=== PATIENT | male | born 1945 | race Caucasian/White ===

== ENCOUNTER 2017-04-18 03:46 | Inpatient (IN) | payer MEDICARE ==
[2017-04-18 04:51] LABS: #Eosinphils 0.2 thou/uL (0.0-0.7); #Lymphocytes 1.2 thou/uL (1.20-3.40); #Monocytes 0.8 thou/uL (0.11-0.59); #Neutrophils 6.6 thou/uL (1.40-6.50); %Basophils 0.1 % (0.0-1.0); %Eosinophils 1.9 % (0.0-10.0); %Lymphocytes 13.8 % (21.0-51.0); %Monocytes 9.2 % (0.0-10.0); Mean Platelet Volume 7.2 fL (7.4-10.4); Red Blood Cell (RBC) Count 3.16 mill/uL (4.70-6.10); White Blood Cell (WBC) Count 8.8 thou/uL (4.8-10.8)
[2017-04-18 04:57] LABS: PTT 37.8 SEC (22.9-36.1); Prothrombin Time 15.1 SEC (12.0-14.7)
[2017-04-18] MEDS ORDERED: Albuterol Sulfate 2.5 mg/3 ml Neb ONE (05:01)
[2017-04-18 05:07] LABS: ALT (SGPT) 23 U/L (8-55); AST (SGOT) 16 U/L (5-34); Alkaline Phosphatase 123 U/L (40-150); BUN (Urea Nitrogen) 44 mg/dL (8.4-25.7); Bilirubin, Total 0.4 mg/dL (0.2-1.2); Calc. Creatinine Clearance 0 mL/min (70-130); Calcium 9.7 mg/dL (7.8-10.44); Estimated GFR-MDRD 49; Globulin 3.6 g/dL (2.4-3.5); Protein, Total 6.8 g/dL (5.8-8.1)
[2017-04-18] MEDS ORDERED: Clindamycin/D5W 900 mg/50 ml Premix Bag ONE (05:09)
[2017-04-18 05:11] LABS: Troponin I 0.031 ng/mL (< 0.028)
[2017-04-18 05:16] LABS: Anion Gap 13 mmol/L (10-20); Carbon Dioxide 37 mmol/L (23-31); Chloride 93 mmol/L (98-107)
[2017-04-18] MEDS ORDERED: HYDROcodone/Acetaminophen 10/325 mg Tablet ONE (05:31)
[2017-04-18] MEDS ORDERED: Ondansetron HCl/PF 4 MG/2 ML Vial IVP PRN ×2 (06:56→07:24)
[2017-04-18] MEDS ORDERED: Ondansetron ODT 4 MG TAB SL PRN (06:56)
[2017-04-18] MEDS ORDERED: Dextrose 5% in Water 1,000 ML IV PRN (07:24)
[2017-04-18] MEDS ORDERED: Dextrose 50% Abboject 50 ML SYRINGE SLOW IVP PRN (07:24)
[2017-04-18] MEDS ORDERED: PROVENTIL INHALER 6.7 G (200 INHALATIONS) INH PRN (07:25)
[2017-04-18 07:28] LABS: Bilirubin Negative (Negative); Blood, Urine Negative (Negative); Glucose, Urine (Dipstick) Negative (Negative); Ketone, Urine Negative (Negative); Nitrite Negative (Negative); Protein, Urine (Dipstick) 100 mg/dL (Neg-Trace); Urobilinogen 0.2 mg/dL (0.2-1.0)
[2017-04-18 07:30] LABS: Bacteria/HPF None Seen HPF (None Seen); Hyaline Casts/LPF 0-3 HYALINE CAST LPF (0-3 Hyaline); Squamous Epithelial None Seen HPF (0-3); WBC/HPF 0-3 HPF (0-3)
--- NOTE | 2017-04-18 08:23 | HP ---
PRIMARY CARE PROVIDER: [facility]. Referred to [facility] by [facility] after transfer from [facility]. HISTORY OF PRESENT ILLNESS: Patient states his right leg has been painful, red and tender for 3 days . He has had some fever, chills, and sweats periodically during the past 3 days. He also had some i ncreasing shortness of breath; however, this has improved with an increasing dose of Lasix. PAST MEDICAL HISTORY: Pertinent for atrial fibrillation on chronic oral anticoagulation; systolic co ngestive heart failure with cardiomyopathy 40%-45% EF; chronic obstructive pulmonary disease related to remote tobacco abuse; diabetes mellitus type 2, insulin-dependent; hypertension; dyslipidemia; leg ally blind; peripheral neuropathy; coronary artery disease; depression. PAST SURGICAL HISTORY: Coronary artery bypass graft in 2005; multiple vascular stents in [facility] mities, [id number]. CURRENT MEDICATIONS: I am unable to confirm with him; however, he states that he is on the medicines he was discharged on last 02/02/2017 from this hospital, Ventolin HFA 2 puffs q.6 hours p.r.n., aspi rin 325 a day, Coreg 3.125 mg twice a day, Lasix 40 mg twice a day, Humulin 70/30 35 units subcu b.i. d., Dulera two puffs b.i.d., Seroquel 25 mg twice a day, Diamox 250 mg a day, metformin 1000 mg a day . ALLERGIES: To SULFA. His previous chart says he is DNR; however, he states to me he wants to be res uscitated if his heart stops. There are no informants with many. The medical chart refers to a son as surrogate decision maker. FAMILY HISTORY: Negative for inheritable diseases. SOCIAL HISTORY: Lives with son in [place], [place]. Remote tobacco. No alcohol or drug use. Wheel chair bound and nonambulatory. REVIEW OF SYSTEMS: General: Nonambulatory. No dizziness, no fainting. Otherwise, see present illn ess. Vision: Blind, states he cannot see lights. ENT: No complaints of pain or drainage from his ears. No history of nasal bleeding or oral pain. Cardiac: Currently, no orthopnea, no paroxysmal n octurnal dyspnea. No pressure or chest pain. Respiratory: Dry cough, no wheezing. Has some chroni c shortness of breath requiring home O2. Gastrointestinal: No nausea, vomiting, diarrhea or constip ation. No blood in his stools by history. Genitourinary: Some dysuria, has history of prostate pro blems. No reported blood in his urine. Extremities: He has chronically swollen legs. He has the a forementioned painful, tender, swollen right leg. Skin: See extremities related to the history of s welling and erythema on his right lower leg, no history of bruising. Heme/Lymph: No reported tender lymph nodes in axilla, inguinal or cervical area. Neurologic: Legally blind, burning paresthesias in his legs. PHYSICAL EXAMINAITON: GENERAL: The patient is obese, blind male, lying in bed with no distress, able to talk 2-3 minutes w ithout stopping. VITAL SIGNS: Blood pressure 148/68, O2 sat 95 on 4 liters of O2, respirations 18, pulse 65 and irreg ular. HEENT: Reveal nonreactive pupils. Sclerae white. Tympanic membranes clear. Nose is clear. Mouth is wet. Oral mucous membrane showed no lesions. NECK: No jugular venous distention, adenopathy or thyromegaly. CHEST: Decreased breath sounds with no audible wheezing or rales. No focal findings. HEART: Irregular rhythm with no appreciated murmurs or gallops. Heart sounds are distant. ABDOMEN: Protuberant, soft with no palpable organomegaly or mass. Bowel sounds positive. EXTREMITIES: Reveal 3+ edema with no cyanosis or clubbing. SKIN: Reveals a small area of redness on his left distal cook. He has a large area of erythema from his ankle to the proximal cook anteriorly on the right, which is warm and tender. LYMPHATIC SURVEY: Reveals no tender or swollen lymph nodes in axilla, inguinal or cervical area. NEUROLOGICAL: Cranial nerves: He is blind. Facies grossly symmetric. Moves all extremities. Deep tendon reflexes markedly diminished in his legs and markedly decreased sensation in his legs. IMAGING: EKG reveals a atrial fibrillation with controlled ventricular response and wide QRS, no acu te ST-T abnormality. X-RAY FINDINGS: No chest x-ray has presented. LABORATORY DATA: Comp metabolic profile reveals a blood sugar of 221, creatinine 1.42, BUN 44, CO2 3 7, chloride 93. Normal sodium and potassium. Troponin is borderline at 0.03. BNP is 284. Hemoglob in is 9.6, white count is 8.8, platelet count is 196,000. ADMITTING DIAGNOSES: 1. Acute cellulitis, right lower extremity. 2. Chronic atrial fibrillation. 3. Chronic oral anticoagulation. 4. Cardiomyopathy, 40%-45% ejection fraction. 5. Diabetes mellitus type 2, insulin-dependent with chronic kidney disease stage 3. 6. Chronic obstructive pulmonary disease with sleep apnea. 7. Coronary artery disease. 8. Hypertension. PLAN: Cultures have been drawn. IV antibiotics have been started. We will use Ancef 1 gram q.8 albert rs. His home medicines will be reinstituted. Accu-Cheks and sliding scale will be monitored.
[2017-04-18] MEDS ORDERED: Aspirin 325 MG TAB PO SCH (09:00)
[2017-04-18] MEDS ORDERED: Pregabalin 75 MG CAP PO SCH (09:00)
[2017-04-18] MEDS ORDERED: Furosemide 40 MG TAB PO SCH ×2 (09:00→16:00)
[2017-04-18] MEDS: metFORMIN 500 MG TAB PO SCH ×2 (09:26→23:03)
[2017-04-18] MEDS: Famotidine 20 MG TAB PO SCH ×2 (09:27→22:07)
[2017-04-18] MEDS: Carvedilol 3.125 MG TAB PO SCH ×2 (09:27→17:51)
[2017-04-18] MEDS: Polyethylene Glycol 3350 17 GM Packet PO SCH (09:28)
[2017-04-18] MEDS: Sodium Chloride 0.9% 10 ML ONE ×2 (12:08→14:48)
[2017-04-18] MEDS ORDERED: CEFAZOLIN 1 GM in Sodium Chloride 0.9% 100 ML IVPB SCH (14:00)
[2017-04-18] MEDS: HYDROcodone/Acetaminophen 10/325 mg Tablet PO PRN ×2 (14:46→22:09)
[2017-04-18] MEDS: CEFAZOLIN 1 GM, Syringe 2.5 ML in Sterile Water 7.5 ML SLOW IVP SCH ×2 (14:48→22:15)
[2017-04-18] MEDS ORDERED: Furosemide 40 MG/4 ML VIAL ONE (16:01)
[2017-04-18] MEDS ORDERED: Sodium Chloride 0.9% 10 ML ONE (16:01)
[2017-04-18] MEDS ORDERED: Furosemide 40 MG/4 ML VIAL SLOW IVP SCH (16:15)
[2017-04-18] MEDS ORDERED: Rivaroxaban 10 MG TAB PO SCH (17:00)
[2017-04-18] MEDS: HumaLOG 300 UNITS/3 ML VIAL SC SCH (17:45)
[2017-04-18] MEDS: Furosemide 40 MG TAB PO SCH (17:51)
[2017-04-18] MEDS: Ferrous Sulfate 325 MG TAB PO SCH (17:51)
[2017-04-18] MEDS: Mometasone/Formoterol 120 PUFF INHALER INH SCH (18:24)
[2017-04-18] MEDS ORDERED: Mometasone/Formoterol 120 PUFF INHALER INH SCH (18:30)
[2017-04-18] MEDS ORDERED: Simethicone Chewable 80 MG TAB PO PRN (19:00)
[2017-04-18] MEDS ORDERED: Non-Formulary Item 1 EACH (Ranitidine Hcl [Ranitidine Hcl] 150 MG) PO SCH (21:00)
[2017-04-18] MEDS: Gabapentin 300 MG CAP PO SCH (22:05)
[2017-04-18] MEDS: Atorvastatin Calcium 40 MG TAB PO SCH (22:06)
[2017-04-18] MEDS: busPIRone HCl 10 MG TAB PO SCH (22:06)
[2017-04-18] MEDS: Insulin Detemir 100 UNITS/ML 55 UNITS in Pre-Filled Syringe 1 EACH SC SCH (22:07)
[2017-04-19] MEDS: HYDROcodone/Acetaminophen 10/325 mg Tablet PO PRN ×3 (03:15→21:40)
[2017-04-19] MEDS: CEFAZOLIN 1 GM, Syringe 2.5 ML in Sterile Water 7.5 ML SLOW IVP SCH ×3 (05:22→20:55)
[2017-04-19 05:44] LABS: #Eosinphils 0.1 thou/uL (0.0-0.7); #Lymphocytes 1.3 thou/uL (1.20-3.40); #Monocytes 0.9 thou/uL (0.11-0.59); #Neutrophils 6.2 thou/uL (1.40-6.50); %Basophils 0.3 % (0.0-1.0); %Eosinophils 1.6 % (0.0-10.0); %Lymphocytes 15.3 % (21.0-51.0); %Monocytes 10.8 % (0.0-10.0); Hematocrit 30.7 % (42.0-52.0); Mean Platelet Volume 7.5 fL (7.4-10.4); Red Blood Cell (RBC) Count 3.12 mill/uL (4.70-6.10); White Blood Cell (WBC) Count 8.6 thou/uL (4.8-10.8)
[2017-04-19 06:00] LABS: Anion Gap 10 mmol/L (10-20); BUN (Urea Nitrogen) 48 mg/dL (8.4-25.7); Calc. Creatinine Clearance 106 mL/min (70-130); Carbon Dioxide 37 mmol/L (23-31); Chloride 94 mmol/L (98-107); Estimated GFR-MDRD 48
[2017-04-19] MEDS: Mometasone/Formoterol 120 PUFF INHALER INH SCH ×2 (07:15→18:47)
[2017-04-19] MEDS: Acetaminophen 325 MG TAB PO PRN (07:28)
[2017-04-19] MEDS: Aspirin 81 mg Enteric Coated Tablet PO SCH (08:02)
[2017-04-19] MEDS: busPIRone HCl 10 MG TAB PO SCH ×3 (08:02→20:45)
[2017-04-19] MEDS: Carvedilol 3.125 MG TAB PO SCH ×2 (08:03→17:46)
[2017-04-19] MEDS: Furosemide 80 MG TAB PO SCH ×2 (08:03→12:02)
[2017-04-19] MEDS: Ferrous Sulfate 325 MG TAB PO SCH ×3 (08:03→17:46)
[2017-04-19] MEDS: Famotidine 20 MG TAB PO SCH ×2 (08:03→20:45)
[2017-04-19] MEDS: Gabapentin 300 MG CAP PO SCH ×3 (08:09→20:44)
[2017-04-19] MEDS: Polyethylene Glycol 3350 17 GM Packet PO SCH (08:10)
[2017-04-19] MEDS: predniSONE 5 MG TAB PO SCH (08:14)
[2017-04-19] MEDS ORDERED: Docusate 100 MG CAP PO PRN (09:00)
[2017-04-19] MEDS: Insulin Detemir 100 UNITS/ML 55 UNITS in Pre-Filled Syringe 1 EACH SC SCH ×2 (09:13→20:50)
[2017-04-19] MEDS: HumaLOG 300 UNITS/3 ML VIAL SC SCH ×3 (09:14→18:33)
--- NOTE | 2017-04-19 11:19 | PQF ---
CLINICAL DOCUMENTATION IMPROVEMENT CLARIFICATION FORM: ICD-10 Updated PLEASE DO AN ADDENDUM TO THE PROGRESS NOTE WITH ANY DOCUMENTATION UPDATES OR ADDITIONS AND CARRY THROUGH TO DC SUMMARY. THANK YOU. DATE: 04/19 ATTN: DR. ANGÉLICA REINA Please exercise your independent, professional judgment in responding to the clarification form. Clinical indicators are provided on the bottom of this form for your review Please check appropriate box(s): [ ] Chronic Respiratory Failure with Hypoxia [ x ] Chronic Respiratory Failure with Hypercapnia [ ] Other diagnosis [ ] Unable to determine For continuity of documentation, please document condition throughout progress notes and discharge summary. Thank You. CLINICAL INDICATORS - SIGNS / SYMPTOMS / LABS ER PHYSICIAN DOCUMENTATION 04/18: PT STATES HE HAS BEEN SOB FOR PAST 3 WEEKS. STATES HE IS NORMALLY ON 3L 02 AT HOME BUT NOW ON 4.5L ATTENDING PHYSICIAN H&P DOCUMENTATION 04/18: REVIEW OF SYSTEMS: HAS SOME CHRONIC SHORTNESS OF BREATH REQUIRING HOME 02 RISK FACTORS: CHRONIC HOME 02 USE MORBID OBESITY COPD CHF TREATMENTS: SUPPLEMENTAL OXYGEN (4L 04/18 - PRESENT) RESPIRATORY TREATMENTS (ALBUTEROL NEB 04/18 - PRESENT; DULERA INHALER 04/18 - PRESENT) THANK YOU! Desiree (This form is maintained as a part of the permanent medical record) 2014 [employer]. All Rights Reserved Desiree Rangel RN, BSN [email or web address] Office: [phone] [facility]
--- NOTE | 2017-04-19 12:09 | PDOC.PN ---
- Subjective Encounter Start Date: 04/19/17 Encounter Start Time: 12:05 Subjective: various somatic complaints, no fever, chills - Objective Resuscitation Status: Resuscitation Status FULL:Full Resuscitation MAR Reviewed: Yes Vital Signs & Weight: Vital Signs (12 hours) Temp Pulse Resp BP Pulse Ox 04/19/17 07:30 99.3 F 78 16 114/68 88 L 04/19/17 07:16 80 16 04/19/17 03:50 90 L 04/19/17 03:24 98.5 F 80 20 161/81 H 93 L 04/19/17 00:17 70 18 91 L Weight Weight 341 lb I&O: 04/18/17 04/19/17 04/20/17 06:59 06:59 06:59 Intake Total 1100 Output Total 1625 Balance -525 Result Diagrams: 04/19/17 05:22 04/19/17 05:22 Additional Labs: Accuchecks 04/19/17 04/18/17 04/18/17 05:34 20:19 16:50 POC Glucose 203 H 389 H 420 H Phys Exam - Physical Examination Constitutional: NAD Neck: no JVD diffuse decreased BS Cardiovascular: irregular Gastrointestinal: soft, no distention, positive bowel sounds Musculoskeletal: edema present erythema persists RL leg Dx/Plan (1) Cellulitis and abscess of right lower extremity Code(s): L03.115 - CELLULITIS OF RIGHT LOWER LIMB; L02.415 - CUTANEOUS ABSCESS OF RIGHT LOWER LIMB Status: Acute (2) COPD exacerbation Code(s): J44.1 - CHRONIC OBSTRUCTIVE PULMONARY DISEASE W (ACUTE) EXACERBATION Status: Acute (3) CAD (coronary artery disease) Code(s): I25.10 - ATHSCL HEART DISEASE OF [place] CORONARY ARTERY W/O ANG PCTRS Status: Chronic Qualifiers: Coronary Disease-Associated Artery/Lesion type: [place] artery [place] vs. transplanted heart: [place] heart Associated angina: without angina Qualified Code(s): I25.10 - Atherosclerotic heart disease of [place] coronary artery without angina pectoris (4) Cardiomyopathy Code(s): I42.9 - CARDIOMYOPATHY, UNSPECIFIED Status: Chronic Qualifiers: Cardiomyopathy type: unspecified Qualified Code(s): I42.9 - Cardiomyopathy , unspecified (5) DM2 (diabetes mellitus, type 2) Status: Chronic Qualifiers: Diabetes mellitus complication status: with kidney complications Diabetes mellitus complication detail: with chronic kidney disease Diabetes mellitus residential insulin use: with dedicated intermodal truck driver use Chronic kidney disease stage: stage 3 (moderate) Qualified Code(s): E11.22 - Type 2 diabetes mellitus with diabetic chronic kidney disease; N18.3 - Chronic kidney disease, stage 3 ( moderate); N18.3 - Chronic kidney disease, stage 3 (moderate); Z79.4 - FDC (current) use of insulin; Z79.4 - FDC (current) use of insulin; Z79.4 - FDC (current) use of insulin; Z79.4 - termite control servicer (current) use of insulin (6) Dyslipidemia Code(s): E78.5 - HYPERLIPIDEMIA, UNSPECIFIED Status: Chronic (7) HTN (hypertension) Code(s): I10 - ESSENTIAL (PRIMARY) HYPERTENSION Status: Chronic Qualifiers: Hypertension type: essential hypertension Qualified Code(s): I10 - Essential (primary) hypertension (8) Morbid obesity with BMI of 50.0-59.9, adult Code(s): E66.01 - MORBID (SEVERE) OBESITY DUE TO EXCESS CALORIES; Z68.43 - BODY MASS INDEX (BMI) 50-59.9 , ADULT Status: Chronic (9) Obesity hypoventilation syndrome Code(s): E66.2 - MORBID (SEVERE) OBESITY WITH ALVEOLAR HYPOVENTILATION Status : Chronic - Plan cont iv ancef. CXR, abg -: cont accu/ss/insulin -: cont lasix, antihypertensives -: cont nebs * .
[2017-04-19 13:00] VITALS: BMI 50.3
--- NOTE | 2017-04-19 16:09 | RAD ---
PORTABLE CHEST: History: Shortness of breath. Comparison: 05-29-16 FINDINGS: Cardiomegaly with post op sternotomy change. Mild vascular congestion again noted. Hazy parenchymal o pacities in the mid and lower lungs may represent edema. Tiny effusions cannot be excluded. Overall t he findings do not appear to be significantly changed from 01-27-17. IMPRESSION: Cardiomegaly and mild congestive change as described. POS: [facility]
[2017-04-19 17:29] LABS: Oxyhemoglobin 72.7 % (94.0-97.0); Sodium 139 mmol/L (135-148)
[2017-04-19 17:37] LABS: Mode 4L NC; Modified Allen's Test POSITIVE; Vent NO
[2017-04-19] MEDS: Furosemide 40 MG TAB PO SCH (17:46)
[2017-04-19] MEDS: EDOXABAN TOSYLATE 60 MG PO SCH (18:18)
[2017-04-19] MEDS: Atorvastatin Calcium 40 MG TAB PO SCH (20:44)
[2017-04-19] MEDS: Alfuzosin Hcl [Alfuzosin Hcl Er] 10 MG PO SCH ×2 (20:44→20:53)
[2017-04-20] MEDS: HYDROcodone/Acetaminophen 10/325 mg Tablet PO PRN ×2 (03:00→10:37)
[2017-04-20] MEDS: CEFAZOLIN 1 GM, Syringe 2.5 ML in Sterile Water 7.5 ML SLOW IVP SCH ×3 (05:32→21:07)
[2017-04-20] MEDS: Mometasone/Formoterol 120 PUFF INHALER INH SCH ×2 (07:29→19:09)
[2017-04-20] MEDS: Polyethylene Glycol 3350 17 GM Packet PO SCH (08:46)
[2017-04-20] MEDS: HumaLOG 300 UNITS/3 ML VIAL SC SCH ×3 (08:46→17:46)
[2017-04-20] MEDS: busPIRone HCl 10 MG TAB PO SCH ×3 (08:54→21:00)
[2017-04-20] MEDS: Ferrous Sulfate 325 MG TAB PO SCH ×3 (08:54→16:19)
[2017-04-20] MEDS: Furosemide 80 MG TAB PO SCH ×2 (08:54→12:13)
[2017-04-20] MEDS: Famotidine 20 MG TAB PO SCH ×2 (08:54→21:01)
[2017-04-20] MEDS: Gabapentin 300 MG CAP PO SCH ×3 (08:54→21:01)
[2017-04-20] MEDS: predniSONE 5 MG TAB PO SCH (08:55)
[2017-04-20] MEDS: EDOXABAN TOSYLATE 60 MG PO SCH (08:55)
[2017-04-20] MEDS: Carvedilol 3.125 MG TAB PO SCH ×2 (08:55→16:19)
[2017-04-20] MEDS: Aspirin 81 mg Enteric Coated Tablet PO SCH (08:55)
[2017-04-20] MEDS: Insulin Detemir 100 UNITS/ML 55 UNITS in Pre-Filled Syringe 1 EACH SC SCH ×2 (09:42→21:04)
--- NOTE | 2017-04-20 10:01 | PDOC.PN ---
- Subjective Encounter Start Date: 04/20/17 Encounter Start Time: 09:59 Subjective: back, legs still hurt - Objective Resuscitation Status: Resuscitation Status FULL:Full Resuscitation MAR Reviewed: Yes Vital Signs & Weight: Vital Signs (12 hours) Temp Pulse Resp BP BP Pulse Ox 04/20/17 07:29 75 16 92 L 04/20/17 07:26 75 16 92 L 04/20/17 07:03 98.2 F 67 20 90 L 04/20/17 07:01 98.2 F 67 20 112/54 L 90 L 04/20/17 03:04 99.2 F 71 22 H 112/55 L 90 L 04/20/17 01:46 88 L 04/20/17 00:18 66 18 86 L Weight Admit Weight 347 lb Weight 340 lb 1 oz I&O: 04/19/17 04/20/17 04/21/17 06:59 06:59 06:59 Intake Total 1100 1400 Output Total 1625 1800 Balance -525 -400 Result Diagrams: 04/19/17 05:22 04/19/17 05:22 Additional Labs: Accuchecks 04/20/17 04/19/17 04/19/17 05:37 20:24 18:30 POC Glucose 257 H 184 H 121 H 04/19/17 04/19/17 17:00 11:57 POC Glucose 75 231 H Phys Exam - Physical Examination Constitutional: NAD Neck: no JVD Respiratory: clear to auscultation bilateral Cardiovascular: RRR Gastrointestinal: soft, positive bowel sounds Musculoskeletal: edema present bilat erythema lower legs Dx/Plan (1) Cellulitis and abscess of right lower extremity Code(s): L03.115 - CELLULITIS OF RIGHT LOWER LIMB; L02.415 - CUTANEOUS ABSCESS OF RIGHT LOWER LIMB Status: Acute Comment: i know cosider changes in legs to be chronic not acute (2) COPD exacerbation Code(s): J44.1 - CHRONIC OBSTRUCTIVE PULMONARY DISEASE W (ACUTE) EXACERBATION Status: Acute (3) CAD (coronary artery disease) Code(s): I25.10 - ATHSCL HEART DISEASE OF [place] CORONARY ARTERY W/O ANG PCTRS Status: Chronic Qualifiers: Coronary Disease-Associated Artery/Lesion type: [place] artery [place] vs. transplanted heart: [place] heart Associated angina: without angina Qualified Code(s): I25.10 - Atherosclerotic heart disease of [place] coronary artery without angina pectoris (4) Cardiomyopathy Code(s): I42.9 - CARDIOMYOPATHY, UNSPECIFIED Status: Chronic Qualifiers: Cardiomyopathy type: unspecified Qualified Code(s): I42.9 - Cardiomyopathy , unspecified (5) DM2 (diabetes mellitus, type 2) Status: Chronic Qualifiers: Diabetes mellitus complication status: with kidney complications Diabetes mellitus complication detail: with chronic kidney disease Diabetes mellitus long term care social worker insulin use: with shelter use Chronic kidney disease stage: stage 3 (moderate) Qualified Code(s): E11.22 - Type 2 diabetes mellitus with diabetic chronic kidney disease; N18.3 - Chronic kidney disease, stage 3 ( moderate); N18.3 - Chronic kidney disease, stage 3 (moderate); Z79.4 - long term care pharmacist (current) use of insulin; Z79.4 - alf (current) use of insulin; Z79.4 - alf (current) use of insulin; Z79.4 - alf (current) use of insulin (6) Dyslipidemia Code(s): E78.5 - HYPERLIPIDEMIA, UNSPECIFIED Status: Chronic (7) HTN (hypertension) Code(s): I10 - ESSENTIAL (PRIMARY) HYPERTENSION Status: Chronic Qualifiers: Hypertension type: essential hypertension Qualified Code(s): I10 - Essential (primary) hypertension (8) Morbid obesity with BMI of 50.0-59.9, adult Code(s): E66.01 - MORBID (SEVERE) OBESITY DUE TO EXCESS CALORIES; Z68.43 - BODY MASS INDEX (BMI) 50-59.9 , ADULT Status: Chronic (9) Obesity hypoventilation syndrome Code(s): E66.2 - MORBID (SEVERE) OBESITY WITH ALVEOLAR HYPOVENTILATION Status : Chronic - Plan switch to po antibx -: 1400-lethargic, O2 sat low 80s -: ABG- compensated resp acidosis. nebs q3h prn -: change lasix to iv * .
[2017-04-20] MEDS ORDERED: Furosemide 100 MG/10 ML VIAL SLOW IVP SCH (14:15)
[2017-04-20 14:23] LABS: Oxyhemoglobin 89.2 % (94.0-97.0); Sodium 140 mmol/L (135-148)
[2017-04-20 14:26] LABS: Modified Allen's Test POSITIVE; Vent NO
[2017-04-20 14:27] LABS: Mode NC(4L)
[2017-04-20] MEDS: Acetaminophen 325 MG TAB PO PRN (18:15)
[2017-04-20] MEDS: Atorvastatin Calcium 40 MG TAB PO SCH (21:00)
[2017-04-20] MEDS: Alfuzosin Hcl [Alfuzosin Hcl Er] 10 MG PO SCH (21:06)
[2017-04-21] MEDS: HYDROcodone/Acetaminophen 10/325 mg Tablet PO PRN ×4 (01:49→14:20)
[2017-04-21] MEDS: CEFAZOLIN 1 GM, Syringe 2.5 ML in Sterile Water 7.5 ML SLOW IVP SCH ×2 (05:10→14:20)
[2017-04-21] MEDS: Mometasone/Formoterol 120 PUFF INHALER INH SCH ×2 (07:33→18:56)
[2017-04-21] MEDS: busPIRone HCl 10 MG TAB PO SCH ×2 (09:10→16:51)
[2017-04-21] MEDS: predniSONE 5 MG TAB PO SCH (09:11)
[2017-04-21] MEDS: Carvedilol 3.125 MG TAB PO SCH ×2 (09:11→16:51)
[2017-04-21] MEDS: Famotidine 20 MG TAB PO SCH (09:12)
[2017-04-21] MEDS: Aspirin 81 mg Enteric Coated Tablet PO SCH (09:12)
[2017-04-21] MEDS: Ferrous Sulfate 325 MG TAB PO SCH ×3 (09:12→16:50)
[2017-04-21] MEDS: Gabapentin 300 MG CAP PO SCH ×2 (09:12→16:50)
[2017-04-21] MEDS: Polyethylene Glycol 3350 17 GM Packet PO SCH (09:13)
[2017-04-21] MEDS: Insulin Detemir 100 UNITS/ML 55 UNITS in Pre-Filled Syringe 1 EACH SC SCH (09:15)
[2017-04-21] MEDS: HumaLOG 300 UNITS/3 ML VIAL SC SCH ×3 (09:16→18:11)
[2017-04-21] MEDS: EDOXABAN TOSYLATE 60 MG PO SCH (09:39)
--- NOTE | 2017-04-21 11:25 | DIS ---
DATE OF ADMISSION: 04/18/2017 DATE OF DISCHARGE: 04/21/2017 DISCHARGE DISPOSITION: Home. PRIMARY CARE PROVIDER: [facility]. FINAL DIAGNOSES: 1. Cellulitis, right lower leg. 2. Chronic atrial fibrillation. 3. Cardiomyopathy. 4. Diabetes mellitus type 2 with chronic kidney disease. 5. Diabetes mellitus type 2. 6. Chronic obstructive pulmonary disease. 7. Chronic respiratory failure on home oxygen. 8. Compensated respiratory acidosis. 9. Dyslipidemia. 10. Hypertension. 11. Obesity. 12. Obesity hypoventilation syndrome. DISCHARGE MEDICATIONS: Hydrocodone 10/325 one every 4 hours as needed for pain, Coreg 3.125 mg a day , BuSpar 5 mg t.i.d., Lipitor 80 mg a day, alfuzosin 10 mg a day, Stiolto Respimat inhalation spray d aily, insulin detemir 55 units subcutaneously twice a day, and insulin NovoLog 60 units subcu t.i.d. with meals, gabapentin 300 mg 3 times a day, Imdur 30 mg a day, prednisone 5 mg a day, Symbicort 2 pu ffs b.i.d., aspirin 81 mg a day, ranitidine 150 mg twice a day, and Lasix 80 mg p.o. b.i.d. ALLERGIES: SULFA ANTIBIOTICS. CODE STATUS: FULL. PENDING AT THE TIME OF DISCHARGE: Nothing. CONSULTATIONS: None. PROCEDURES: None. HOSPITAL COURSE: [facility] for cellulitis to the left lower extremity. The patient's cultures were drawn, which have been negative. Initial laboratory: White count 8.8, hemoglobin 9.6, and platelet count 196,000. Blood gas reveals compensated respiratory acidosis with hypercapnia. Sodium 139, potassium 4.4, BUN 44, cr eatinine 0.42. Accu-Cheks, sliding scale were monitored. Home medicines were continued. The patien t is improved during his hospital stay. He is afebrile. Vital signs are stable, O2 sats 94% on 4 li ters of O2, which is usual home medicine. Chest x-ray done in the emergency room, pulmonary vascular congestion. His Lasix dose was increased during his hospital stay from 40 mg a day p.r.n. and 80 mg twice a day. Prescriptions have been written for that and for the Omnicef. [facility] He has home O2, home nebulizer therapies. He has home health car e that comes 5 days a week for 2 hours. Prognosis is fair, considering his multiplicity of his medic al problems.
[2017-04-21 16:05] VITALS: BP 120/58; TEMP 97.7
--- NOTE | 2017-04-22 15:27 | PQF ---
PANDA JORGE, [facility] [id number] CLINICAL DOCUMENTATION CLARIFICATION FORM: POST DISCHARGE Please clarify if documented "Systolic congestive heart failure" can be further specified. H&P; PMH; "Systolic congestive heart failure with cardiomyopathy 40%-45% EF." DC SUMMARY; "Chest x-ray done in emergency room, pulmonary vascular congestion. His Lasix dose was increased during his hospital stay from 40 mg a day p.r.n. and 80 mg twice a day. PN 04/20; "edema present "; "change lasix to IV" 04/20- Slow IV 80mg ordered/ administered Please exercise your independent, professional judgment in responding to the clarification form. Clinical indicators are provided on the bottom of this form for your review. Thank you. Please check appropriate box(s): HEART FAILURE: A. TYPE: [ x ] Systolic / HFrEF [ ] Diastolic / HFpEF [ ] Combined Systolic / Diastolic B. ACUITY [ ] Acute [ x ] Acute on Chronic [ ] Chronic [ ] Other diagnosis [ ] Unable to determine In addition, please specify: Present on Admission (POA): [ ] Yes [ ] No [ ] Unable to determine CLINICAL INDICATORS - SIGNS / SYMPTOMS / LABS Ejection Fraction = % Dyspnea, Hypoxia Peripheral edema Elevated BNP JVD Orthopnea / SOB / dyspnea Pleural effusion / pulmonary edema CXR results Arrhythmia--tachycardia RISKS: History of CAD/ischemic heart disease CKD Hypertension TREATMENTS: Administration of BRITTANIE / ARB / BB Cardiac monitoring / telemetry IV diuretics Oxygen AICD (This form is maintained as a part of the permanent medical record) 2014 [employer]. All Rights Reserved JANET [email or web address] [phone] [facility]
== END 2017-04-21 19:52 | disposition home health service (06) | DRG 602 ==
LOC: ERS 03:46 → 2NO 05:00
PROVIDERS: ADMIT Internal Medicine Infectious Disease; ATTEND Internal Medicine Infectious Disease
PROC: 5A09357 Assistance with Respiratory Ventilation, Less than 24 Consecutive Hours, Continuous Positive Airway Pressure (ICD-10-PCS; principal; 2017-04-20)
DX: L03.115 Cellulitis of right lower limb (principal); I50.23 Acute on chronic systolic (congestive) heart failure; E87.2 Acidosis; J96.12 Chronic respiratory failure with hypercapnia; I42.9 Cardiomyopathy, unspecified; E11.22 Type 2 diabetes mellitus with diabetic chronic kidney disease; Z68.43 Body mass index [BMI] 50.0-59.9, adult; I13.0 Hypertensive heart and chronic kidney disease with heart failure and stage 1 through stage 4 chronic kidney disease, or unspecified chronic kidney disease; E66.2 Morbid (severe) obesity with alveolar hypoventilation; J44.1 Chronic obstructive pulmonary disease with (acute) exacerbation; L02.415 Cutaneous abscess of right lower limb; E11.42 Type 2 diabetes mellitus with diabetic polyneuropathy; N18.3 Chronic kidney disease, stage 3 (moderate); I48.2 Chronic atrial fibrillation; Z99.81 Dependence on supplemental oxygen; E78.5 Hyperlipidemia, unspecified; Z87.891 Personal history of nicotine dependence; Z79.4 Long term (current) use of insulin; I25.10 Atherosclerotic heart disease of native coronary artery without angina pectoris; F32.9 Major depressive disorder, single episode, unspecified; H54.8 Legal blindness, as defined in USA; Z79.82 Long term (current) use of aspirin
CPT/HCPCS: 36415; 36416; 71010; 80048; 80053; 81001; 82553; 82805; 83880; 84484; 85025; 85610; 85730; 87086; 93005; 94640; 94664; 94760; 96365; A4216; J0690; J1815; J1940; J2405; J3490; J7050; J7611; J7620

== ENCOUNTER 2017-05-13 11:41 | Inpatient (IN) | payer MEDICARE, OTHER ==
[2017-05-13 12:37] LABS: #Lymphocytes 0.9 thou/uL (1.20-3.40); #Monocytes 0.8 thou/uL (0.11-0.59); #Neutrophils 9.8 thou/uL (1.40-6.50); %Basophils 0.1 % (0.0-1.0); %Eosinophils 0.3 % (0.0-10.0); %Lymphocytes 7.5 % (21.0-51.0); %Monocytes 7.2 % (0.0-10.0); %Neutrophils 84.9 % (42.0-75.0); Hemoglobin 10.5 g/dL (14.0-18.0); Mean Corpuscular HGB CONC 30.8 g/dL (32.0-36.0); Mean Corpuscular Hemoglobin 30.4 pg (27.0-31.0); Mean Corpuscular Volume 98.5 fl (80.0-94.0); Mean Platelet Volume 7.6 fL (7.4-10.4); Platelet Count 169 thou/uL (130-400); RBC Distribution Width 16.4 % (11.5-14.5); Red Blood Cell (RBC) Count 3.45 mill/uL (4.70-6.10); White Blood Cell (WBC) Count 11.6 thou/uL (4.8-10.8)
--- NOTE | 2017-05-13 13:12 | RAD ---
AP VIEW CHEST: 05/13/2017 HISTORY: Dyspnea. COMPARISON: 04/19/2017 FINDINGS: AP view chest demonstrates sternotomy wires seen. Cardiomegaly is noted. Small bilateral pleural ef fusions are seen. Pulmonary vascular congestion is noted. No evidence of pneumothorax is seen. IMPRESSION: 1. Cardiomegaly and pulmonary vascular congestion. 2. Small bilateral pleural effusions. POS: [facility]
[2017-05-13 13:13] LABS: ALT (SGPT) 35 U/L (8-55); AST (SGOT) 104 U/L (5-34); Albumin 3.7 g/dL (3.4-4.8); Alkaline Phosphatase 99 U/L (40-150); Anion Gap 14 mmol/L (10-20); BUN (Urea Nitrogen) 47 mg/dL (8.4-25.7); Bilirubin, Total 0.8 mg/dL (0.2-1.2); Calc. Creatinine Clearance 0 mL/min (70-130); Calcium 8.9 mg/dL (7.8-10.44); Carbon Dioxide 35 mmol/L (23-31); Chloride 92 mmol/L (98-107); Estimated GFR-MDRD 35; Globulin 3.7 g/dL (2.4-3.5); Glucose 331 mg/dL (80-115); Potassium 4.9 mmol/L (3.5-5.1); Protein, Total 7.4 g/dL (5.8-8.1); Sodium 136 mmol/L (136-145)
[2017-05-13 13:20] LABS: CKMB 35.6 ng/mL (0-6.6)
[2017-05-13 13:26] LABS: CK (CPK) 6359 U/L (30-200)
[2017-05-13 13:27] LABS: Bilirubin Negative (Negative); Blood, Urine Large (Negative); Clarity CLOUDY (Clear); Glucose, Urine (Dipstick) 100 mg/dL (Negative); Leukocyte Negative (Negative); Nitrite Negative (Negative); Protein, Urine (Dipstick) 100 mg/dL (Neg-Trace); Specific Gravity, Urine 1.022 (1.002-1.036)
[2017-05-13 13:30] LABS: Pathc Cast-AUWi Flag 1.35 (0-2.49); Squamous Epithelial 0-3 HPF (0-3); WBC/HPF 0-3 HPF (0-3)
[2017-05-13 13:42] LABS: Bacteria/HPF 2+ HPF (None Seen); Hyaline Casts/LPF 0-3 HYALINE CAST LPF (0-3 Hyaline); Yeast-All Forms None Seen HPF (None Seen)
[2017-05-13 14:38] LABS: Magnesium 2.7 mg/dL (1.6-2.6); Phosphorus 5.9 mg/dL (2.3-4.7)
[2017-05-13 14:58] LABS: Thyroid Stimulating Hormone 1.5211 uIU/mL (0.35-4.94)
--- NOTE | 2017-05-13 16:07 | HP ---
PRIMARY CARE PHYSICIAN: [facility]. REASON FOR ADMISSION: Non-ST elevation TX, acute on chronic diastolic congestive heart failure, COPD exacerbation, acute on chronic respiratory failure with hypoxia. HISTORY OF PRESENT ILLNESS: Mr. Centeno is a 72-year-old male who has multiple medical problems inclu ding chronic diastolic heart failure, COPD, chronic respiratory acidosis, obesity hypoventilation syn drome on CPAP machine and chronic respiratory failure requiring home oxygen as well as significant ph ysical deconditioning. He was brought to emergency room for increasing shortness of breath. Patient reports that he is chronically short of breath, but last night he was having chest pain, left-sided, radiating to left upper arm as well as behind his shoulder blade, associated with severe shortness o f breath. Since then he was not able to breathe at all. His oxygen saturation dropped at home. He was feeling very weak, sweaty and that is why he was evaluated at [facility] and subsequently he was transferred to our hospital for higher level of care. At [facility], he was found with rhabdomyolysis and renal failure. His troponin was signific antly abnormal. He had significantly increased bilateral lower extremity edema. He was also hypoxic . He was only maintaining oxygen saturation 91% with a facemask. This patient denies any constipation, diarrhea, melena, hematochezia. He denies any UTI symptoms. H e denies any fever or chills. He denies any pain anywhere in his body other than chest discomfort wh ich he had last night. PAST MEDICAL HISTORY: Chronic diastolic heart failure, chronic respiratory acidosis with metabolic c ompensation, COPD, diabetes type 2 insulin requiring, hypertension, dyslipidemia, legal blindness, pe ripheral neuropathy, severe physical deconditioning, coronary artery disease, obesity hypoventilation syndrome, paroxysmal atrial fibrillation, dyslipidemia, and gastroesophageal reflux disease. PAST PSYCHIATRIC HISTORY: Anxiety and depression. PAST SURGICAL HISTORY: CABG x3 in 2006. The patient had multiple vascular stent in lower extremity between 2005 and 2016. ALLERGIES: SULFA DRUGS. FAMILY HISTORY: No strong family history of premature coronary artery disease, stroke or cancer. SOCIAL HISTORY: The patient lives in [place] along with his son who is surrogate decision maker. Patient has a remote history of smoking, but he quit smoking several years ago. No history of alcoho l or other illicit drug abuse. He is wheelchair bound and is nonambulatory. REVIEW OF SYSTEMS: The following complete review of systems was negative, unless otherwise mentioned in the HPI or below: Constitutional: Weight loss or gain, ability to conduct usual activities. Skin: Rash, itching. Eyes: Double vision, pain. ENT/Mouth: Nose bleeding, neck stiffness, pain, tenderness. Cardiovascular: Palpitations, dyspnea on exertion, orthopnea. Respiratory: Shortness of breath, wheezing, cough, hemoptysis, fever or night sweats. Gastrointestinal: Poor appetite, abdominal pain, heartburn, nausea, vomiting, constipation, or diarr hea. Genitourinary: Urgency, frequency, dysuria, nocturia. Musculoskeletal: Pain, swelling. Neurologic/Psychiatric: Anxiety, depression. Allergy/Immunologic: Skin rash, bleeding tendency. Please see my HPI for pertinent positives and negatives. All other review of systems reviewed and ne gative except as mentioned in the HPI. CURRENT HOME MEDICATIONS: Aspirin 81 mg p.o. daily, Lipitor 80 mg p.o. at bedtime, Symbicort 2 puffs inhalation b.i.d., buspirone 5 mg p.o. t.i.d., calcium with vitamin D 1 tablet p.o. q.4 hourly p.r.n ., Coreg 3.125 mg p.o. b.i.d., ferrous sulfate 325 mg p.o. daily, Flonase nasal spray daily, Lasix 40 mg p.o. daily, gabapentin 300 mg p.o. three times daily, Charlo 10 one tablet q.4 hourly p.r.n., Leve cindy insulin 55 units b.i.d., Humalog insulin as per sliding scale, methocarbamol 1000 mg p.o. q.i.d. p.r.n., ranitidine 150 mg p.o. b.i.d., and Spiriva inhalation daily. EMERGENCY ROOM COURSE: Patient is given aspirin and IV fluid. PHYSICAL EXAMINATION: VITAL SIGNS: On arrival, blood pressure 123/50, pulse 90, respiratory rate 24, temperature 98.0, sat uration 98% on facemask, and weight 154 kilograms. GENERAL: Patient is currently alert, awake, no obvious acute distress. HEAD: Normocephalic, atraumatic. EYES: Pupils round, reactive to light. Extraocular muscle intact. ENT: Moist mucous membranes. No oral lesions. No pharyngeal erythema, no exudates. NECK: Short neck. Difficult to assess JVD. LUNGS: Because of morbid obesity, very difficult to perform pulmonary examination. Unable to elicit any wheezing, rales, or rhonchi externally. Air entry reduced both sides. CARDIAC: S1, S2. Rate appears irregular. Distant heart sounds heard because of morbid obesity. ABDOMEN: Morbid obesity present. Abdominal wall edema noted. Because of morbid obesity, examinatio n is limited. EXTREMITIES: Bilateral +4 pitting edema. Mild erythema noted. Upper extremity passive movement of all joints are normal. NEUROLOGIC: Grossly nonfocal examination. He is able to move all four limbs. His speech is normal. SKIN: No skin rash. PSYCHIATRIC: Normal affect. IMAGING AND SIGNIFICANT LABORATORY DATA: 1. EKG based on my review, first degree AV block, nonspecific ST-T changes in lateral and anterior l mignon. 2. Chest x-ray based on my review, bilateral pleural effusion and cardiomegaly. 3. CBC: WBC 11.6, hemoglobin 10.5, platelets 169. 4. BMP: Sodium 136, potassium 4.9, chloride 92, carbon dioxide 35, anion gap 14, BUN 47, creatinine 1.92, glucose 331. Serum osmolality 311, calcium 8.9, phosphorus 5.9, magnesium 2.7. 5. LFT: AST 104, ALT 35, alkaline phosphatase 99, albumin 3.7, TSH 1.52, CK 6359, CK-MB 35.6, tropo scott I 0.700. 6. Urinalysis, bacteria plus, blood large. ASSESSMENT AND PLAN/IMPRESSION: 1. Acute respiratory distress, likely due to combined etiology from chronic obstructive pulmonary di sease exacerbation as well as diastolic heart failure exacerbation. Patient will require IMCU admiss ion for close monitoring. We will try with Vision bilevel positive airway pressure in IMCU. Pulmona ry and Cardiology will be consulted. 2. Acute on chronic respiratory failure with hypoxia and hypercapnia with metabolic compensation. W e will use Vision bilevel positive airway pressure during nighttime. Pulmonary and Cardiology will b e consulted. 3. [id number] myocardial infarction. The patient had chest pain and he has nonspecific ST-T c hanges in EKG. Cardiology will be consulted. We will continue aspirin 325 mg p.o. daily, nitroglyce rin p.r.n. basis, nitropatch 0.5 inch q.8 hourly if blood pressure permits. We will obtain echocardi ography. 4. Chronic obstructive pulmonary disease exacerbation. Patient will be given DuoNeb therapy every 4 hourly as well as needed. We will also continue Pulmicort nebulization twice daily. Patient will b e given empiric antibiotic therapy with Rocephin 1 gram q.24 hours and Mucinex 600 mg 3 times daily. 5. Morbid obesity with obesity hypoventilation syndrome. The patient will have Vision bilevel posit howie airway pressure during nighttime and as needed basis while in hospital. 6. Rhabdomyolysis. At this point because of elevated CK, we will avoid statin therapy. Patient is not a good candidate for any IV fluid therapy because of already fluid overload status. TSH is hilario l. We will monitor CK level daily basis. 7. Acute kidney failure, likely suspecting from cardiorenal syndrome. Patient will need diuretic th erapy and we will monitor renal function. We will check urine sodium, urine creatinine. We will shakira id nephrotoxin agents. 8. Diabetes type 2, uncontrolled. We will continue the Humalog insulin as per aggressive sliding sc vijay. We will also continue Levemir 55 units subcu twice daily. 9. Gastroesophageal reflux disease. We will continue Pepcid 20 mg p.o. b.i.d. 10. Peripheral neuropathy. We will continue gabapentin 300 mg 3 times daily. 11. Deep venous thrombosis prophylaxis, heparin 5000 units subcu twice daily. 12. Gastrointestinal prophylaxis, Pepcid 20 mg p.o. b.i.d. 13. Code status: The patient wanted to be kept as a FULL CODE. Patient's son is surrogate decision maker. Palliative care will be consulted during this admission. HOSPITAL COURSE: We are expecting patient's stay in hospital more than 2 midnights. Plan of care di scussed with the patient in detail in the emergency room. Prognosis guarded.
[2017-05-13 16:23] LABS: Actual Bicarbonate (HCO3a) 34.3 mEq/L (22-26); Base Excess (BEa) 6.6 mEq/L (0 (+/-) 2.5); Calcium, Ionized 1.1 mmol/L (1.12-1.30); Hematocrit-ABG 35.7 % (42.0-52.0); Hemoglobin (Hb) 9.9 g/dL (14.0-18.0); O2 Tension (PaO2) 84.4 mmHg (80.0-100.0); pH, Arterial 7.32 (7.35-7.45)
[2017-05-13 16:25] LABS: CO2 Tension 68.6 mmHg (35.0-45.0)
[2017-05-13 16:26] LABS: Analyzer IN Cardio ER; Puncture Site RR
[2017-05-13] MEDS ORDERED: Chloraseptic Spray 180 ml Bottle PO PRN (17:06)
[2017-05-13] MEDS ORDERED: Calcium Carbonate 500 MG ChewTAB PO PRN (17:06)
[2017-05-13] MEDS ORDERED: Loratadine 10 MG TAB PO PRN (17:06)
[2017-05-13] MEDS ORDERED: Dextrose 5% in Water 1,000 ML IV PRN (17:06)
[2017-05-13] MEDS ORDERED: Mag-Al 1200 mg/1200 mg/30 ML UDCUP PO PRN (17:06)
[2017-05-13] MEDS ORDERED: Ondansetron ODT 4 MG TAB PO PRN (17:06)
[2017-05-13] MEDS ORDERED: cefTRIAXone\\ROCEPHIN 1 GM in Sodium Chloride 0.9% 100 ML IVPB SCH (17:06)
[2017-05-13] MEDS ORDERED: Diabetic Tussin 200 MG/10 ML UDCUP PO PRN (17:06)
[2017-05-13] MEDS ORDERED: Ondansetron HCl/PF 4 MG/2 ML Vial IVP PRN (17:06)
[2017-05-13] MEDS ORDERED: Eucerin (Mineral Oil/Petrolatum,White) 30 gm Jar TOP PRN (17:06)
[2017-05-13] MEDS ORDERED: Milk Of Magnesia 30 ML UDCUP PO PRN (17:06)
[2017-05-13] MEDS ORDERED: Dextrose 50% Abboject 50 ML SYRINGE SLOW IVP PRN (17:06)
[2017-05-13] MEDS ORDERED: hydrALAZINE 20 MG/ML VIAL SLOW IVP PRN (17:06)
[2017-05-13] MEDS ORDERED: Sodium Chloride 0.65% Nasal 44 ML BOT EA NARE PRN (17:06)
[2017-05-13] MEDS ORDERED: Artificial Tear Sol 15 ML BOT EA EYE PRN (17:06)
[2017-05-13] MEDS ORDERED: Benzonatate 100 MG CAP PO PRN (17:06)
[2017-05-13] MEDS ORDERED: Senokot 8.6 MG TAB PO PRN (17:06)
[2017-05-13] MEDS ORDERED: Bisacodyl 10 MG SUPP PR PRN (17:06)
[2017-05-13] MEDS ORDERED: Nitroglycerin 0.4 MG TAB (25 Tab Bottle) PO PRN (17:06)
[2017-05-13] MEDS: Acetaminophen 325 MG TAB PO PRN (18:13)
[2017-05-13] MEDS: Nitroglycerin 2% Ointment 1 INCH/1 GM Packet TOP SCH (18:13)
[2017-05-13] MEDS: cefTRIAXone\\ROCEPHIN 1 GM, Syringe 0.4 ML in Sterile Water 9.6 ML SLOW IVP SCH (18:17)
[2017-05-13 18:40] LABS: Troponin I 2.141 ng/mL (< 0.028)
[2017-05-13] MEDS: Budesonide 0.5 MG/2 ML NEB INH SCH (19:02)
--- NOTE | 2017-05-13 20:14 | CON ---
DATE OF CONSULT: 05/13/17 HISTORY OF PRESENT ILLNESS: Ishan Centeno an unfortunate 72-year-old gentleman with a history of coronary artery disease who presented with increasing dyspnea. The patient has a history of congestive heart failure, thought to be secondary to diastolic dysfunction. The patient also suffers from severe sleep apnea. He was admitted two months ago with congestive heart failure. He was treated with Lasix. He was found to have mild decreased left ventricular ejection fraction 40-45%. The patient presents once again with increasing dyspnea. He was noted to have an elevated troponin level. He reported having left-sided chest discomfort. He reports being markedly dyspneic. PAST MEDICAL HISTORY : 1. Coronary artery disease. 2. Congestive heart failure. 3. Chronic obstructive pulmonary disease. 4. Blindness. 5. History of depression. PAST SURGICAL HISTORY: Coronary bypass surgery, and peripheral stents. ALLERGIES: SULFA DRUGS. SOCIAL HISTORY: Nonsmoker. Wheelchair bound. MEDICATIONS: See nursing list. REVIEW OF SYSTEMS: CONSTITUTIONAL: No bright red blood per rectum, hematuria. He noticed having increasing lower extremity swelling. PHYSICAL EXAMINATION: GENERAL: Obese gentleman in no acute distress. VITAL SIGNS: Blood pressure 122/70, heart rate is 80. NECK: Full. LUNGS: Coarse breath sounds bilateral. HEART: Regular rate and rhythm, normal S1, S2 with distant heart sounds. ABDOMEN: Distended. EXTREMITIES: Showed severe bilateral edema. VASCULAR: Radial pulses are 2+. LABORATORY RESULTS: Sodium 136, potassium 4.9, chloride 92, bicarbonate 35, BUN 47, creatinine 1.92 , glucose is 331. His CPK was 6359. Troponin was 35.6. His white blood cell count 11.6, hemoglobin 10.5, hematocrit 34.0 and his platelets were 169. His EKG revealed him to have normal sinus rhythm with Q-waves suggestive of a previous inferior infarct. IMPRESSION: 1. Rhabdomyolysis. 2. History of coronary bypass surgery. 3. History of hypertension. 4. Renal insufficiency. 5. History of peripheral vascular disease. 6. Morbid obesity. 7. Sleep apnea. This unfortunate gentleman presents with rhabdomyolysis. He has elevation in CPK .I expect that this may be secondary to his statin therapy. Would recommend the patient be hydrated. Would discontinue his Lipitor. We will follow this patient with you through his hospitalization. NAVID
[2017-05-13] MEDS ORDERED: FLU VACC TS2017-18 (>65YR) 0.5 ML SYRINGE IM ONE (21:00)
[2017-05-13] MEDS: Carvedilol 3.125 MG TAB PO SCH ×2 (21:14→23:48)
[2017-05-13] MEDS: Famotidine 20 MG TAB PO SCH ×2 (21:14→23:48)
[2017-05-13] MEDS: busPIRone HCl 5 MG TAB PO SCH ×2 (21:14→23:48)
[2017-05-13] MEDS: Docusate 100 MG CAP PO SCH ×2 (21:14→23:48)
[2017-05-13] MEDS: guaiFENesin ER 600 MG TAB PO SCH ×2 (21:15→23:47)
[2017-05-13 22:18] LABS: Critical Call Chem Troponin I RESULT DECREASING; Troponin I 1.994 ng/mL (< 0.028)
[2017-05-13] MEDS ORDERED: Gabapentin 300 MG CAP PO SCH (23:45)
[2017-05-13] MEDS: HYDROcodone/Acetaminophen 10/325 mg Tablet PO PRN (23:48)
[2017-05-13] MEDS: Insulin Detemir 100 UNITS/ML 55 UNITS in Pre-Filled Syringe 1 EACH SC SCH (23:49)
[2017-05-14] MEDS: Nitroglycerin 2% Ointment 1 INCH/1 GM Packet TOP SCH ×3 (01:27→16:30)
--- NOTE | 2017-05-14 02:13 | CON ---
DATE OF CONSULTATION: 05/13/2017 Jacobo is a 72-year-old male I have seen in the past. He is a DO NOT RESUSCITATE patient the last ti me I saw him. I asked him if he still wanted to be a DO NOT RESUSCITATE patient and he confirmed elliott t did not want to be mechanically ventilated, shocked, or intubated. He has a history of chronic diastolic heart failure. He is blind. He also has obstructive lung disease. He presents with complaints of shortness of breath. He actually was in no distress when I evaluated him. PAST MEDICAL HISTORY: 1. Remarkable for systolic and diastolic heart failure with an ejection fraction of 40-45%. 2. History reported for blindness secondary to diabetic retinopathy. 3. History of severe peripheral neuropathy secondary to diabetes. 4. History of extreme deconditioning since he is not nonambulatory, unable to see and has his neurop athy. 5. History of obstructive lung disease. 6. History of hypertension. 7. Lipid disorder. 8. Coronary artery bypass grafting in 2005. 9. History of multiple peripheral vascular stent in 2005 and 2015. SOCIAL HISTORY: He is a past smoker. He is a nondrinker. MEDICATIONS: He has in the past been on Coreg, aspirin, [place], gabapentin, Lasix, iron, Ismo, methoc arbamol. ALLERGIES: He reports SULFA allergy. FAMILY HISTORY: Negative for lung disease at an early age. There is a family history of diabetes. REVIEW OF SYSTEMS: A 10-point is positive for shortness of breath at rest, says he feels better than when he presented. He has had no hemoptysis. He denies chest discomfort. He had no nausea, vomiting, diarrhea, gross hematuria or dysuria. Remainder of review of systems is negative. PHYSICAL EXAMINATION: VITAL SIGNS: To me, he looks very close to his baseline. He is afebrile, heart rate is in the 60s, respiratory rates in his 20s, oximetry is 88 and 92 on facemask, blood pressure 115/50. HEENT: He is blind. His sclerae is anicteric. NECK: Supple. LUNGS: Remarkable for coarse equal breath sounds. He is not wheezing. HEART: Regular rhythm. S1 and S2 are distant. ABDOMEN: Soft and nontender. EXTREMITIES: Without asymmetry. IMAGING: Chest radiograph is consistent with congestive heart failure. This was reviewed by me. LABORATORY DATA: White count 11.6, hemoglobin 10.5, platelets 169. Sodium 136, potassium 4.9, chloride 92, bicarbonate 35, BUN 47, creatinine 1.92. Blood gas 7.32, CO2 of 68, pO2 of 84. IMPRESSION: 1. Congestive heart failure. 2. Obesity hypoventilation syndrome. PLAN: I have recommended, 1. BiPAP as needed. 2. Gentle diuresis. 3. Blood pressure control. All labs and x-rays have been reviewed. I do not feel he has pneumonia. We would deescalate antibiotics as quickly as possible. This is mor e consistent with congestive heart failure than COPD exacerbation in my opinion. It is interesting t o note from lab standpoint that his CPK was 6359. There is no reason to believe that he has polymyos itis associated with an underlying malignant process. It is more likely rhabdomyolysis, sitting in o ne position for a long period of time. His kidney function is probably half of what his baseline is. The creatinine in February of this year is 1.08, his creatinine is 1.92 now. This will have to be monitored closely, especially if he is to be diuresed. Time of consultation is 50 minutes of which greater than 50% of the time was spent conferring with St aph and on the unit.
[2017-05-14] MEDS: HYDROcodone/Acetaminophen 10/325 mg Tablet PO PRN ×5 (03:59→22:45)
[2017-05-14 04:08] LABS: #Eosinphils 0.2 thou/uL (0.0-0.7); #Lymphocytes 1.3 thou/uL (1.20-3.40); #Monocytes 0.8 thou/uL (0.11-0.59); #Neutrophils 6.5 thou/uL (1.40-6.50); %Basophils 0.2 % (0.0-1.0); %Eosinophils 1.7 % (0.0-10.0); %Lymphocytes 14.6 % (21.0-51.0); %Monocytes 9.3 % (0.0-10.0); %Neutrophils 74.1 % (42.0-75.0); Mean Corpuscular HGB CONC 31.1 g/dL (32.0-36.0); Mean Corpuscular Hemoglobin 30.3 pg (27.0-31.0); Mean Corpuscular Volume 97.5 fl (80.0-94.0); Mean Platelet Volume 8.2 fL (7.4-10.4); Platelet Count 172 thou/uL (130-400); RBC Distribution Width 16.3 % (11.5-14.5); Red Blood Cell (RBC) Count 3.32 mill/uL (4.70-6.10); White Blood Cell (WBC) Count 8.8 thou/uL (4.8-10.8)
[2017-05-14 04:31] LABS: ALT (SGPT) 38 U/L (8-55); AST (SGOT) 128 U/L (5-34); Albumin 3.4 g/dL (3.4-4.8); Alkaline Phosphatase 80 U/L (40-150); Anion Gap 15 mmol/L (10-20); BUN (Urea Nitrogen) 53 mg/dL (8.4-25.7); Bilirubin, Total 0.6 mg/dL (0.2-1.2); Calc. Creatinine Clearance 97 mL/min (70-130); Calcium 8.7 mg/dL (7.8-10.44); Carbon Dioxide 32 mmol/L (23-31); Cardiac Risk 2.8 (Less than 4.5); Chloride 95 mmol/L (98-107); Cholesterol 99 mg/dl (< 200 Desired); Estimated GFR-MDRD 44; Globulin 3.6 g/dL (2.4-3.5); Glucose 180 mg/dL (80-115); HDL Cholesterol 35 mg/dL (>60 Neg Risk); LDL Cholesterol, Calculated 39 mg/dL; Magnesium 2.9 mg/dL (1.6-2.6); Potassium 4.1 mmol/L (3.5-5.1); Sodium 138 mmol/L (136-145); Triglycerides 124 mg/dL (Less than 150)
[2017-05-14 04:44] LABS: CK (CPK) 7327 U/L (30-200)
[2017-05-14] MEDS: Furosemide 40 MG/4 ML VIAL SLOW IVP SCH ×2 (05:46→14:45)
[2017-05-14] MEDS: Budesonide 0.5 MG/2 ML NEB INH SCH ×2 (07:37→19:15)
[2017-05-14] MEDS: Saccharomyces boulardii 250 MG CAP PO SCH (09:44)
[2017-05-14] MEDS: Gabapentin 300 MG CAP PO SCH ×3 (09:45→20:43)
[2017-05-14] MEDS: Famotidine 20 MG TAB PO SCH ×2 (09:45→20:43)
[2017-05-14] MEDS: Docusate 100 MG CAP PO SCH ×2 (09:45→20:43)
[2017-05-14] MEDS: guaiFENesin ER 600 MG TAB PO SCH ×3 (09:45→20:43)
[2017-05-14] MEDS: Aspirin 81 mg Enteric Coated Tablet PO SCH (09:45)
[2017-05-14] MEDS: Carvedilol 3.125 MG TAB PO SCH ×2 (09:45→20:43)
[2017-05-14] MEDS: busPIRone HCl 5 MG TAB PO SCH ×3 (09:46→20:43)
[2017-05-14] MEDS: Fluticasone Propionate Nasal Spray 16 gm Bottle NASAL SCH ×2 (09:47)
[2017-05-14] MEDS: Insulin Detemir 100 UNITS/ML 55 UNITS in Pre-Filled Syringe 1 EACH SC SCH ×2 (09:49→20:42)
--- NOTE | 2017-05-14 11:38 | PDOC.PN ---
- Subjective Encounter Start Date: 05/14/17 Encounter Start Time: 08:30 -: old records requested/rev pt is on bipap this morning, doing well, no dyspnea, no chest pain - Objective Resuscitation Status: Resuscitation Status DNR:Do Not Resuscitate MAR Reviewed: Yes Vital Signs & Weight: Vital Signs (12 hours) Temp Pulse Resp BP Pulse Ox 05/14/17 11:33 63 20 93 L 05/14/17 11:00 96.8 F L 65 20 133/72 92 L 05/14/17 08:00 97.5 F L 52 L 16 92 L 05/14/17 07:39 66 05/14/17 07:37 52 L 16 93 L 05/14/17 07:00 97.5 F L 52 L 15 134/59 L 92 L 05/14/17 04:00 97.4 F L 54 L 19 128/32 L 96 05/14/17 02:39 57 L 05/14/17 02:38 61 19 93 L 05/14/17 00:00 17 Weight Weight 349 lb I&O: 05/13/17 05/14/17 05/15/17 06:59 06:59 06:59 Intake Total 375 Output Total 995 Balance -620 Result Diagrams: 05/14/17 03:35 05/14/17 03:35 Additional Labs: Accuchecks 05/14/17 05/14/17 05/14/17 09:27 04:49 00:49 POC Glucose 97 158 H 217 H 05/13/17 05/13/17 21:45 18:23 POC Glucose 229 H 270 H EKG Reviewed by me: Yes (nsr) Phys Exam - Physical Examination Constitutional: NAD HEENT: PERRLA, moist MMs, sclera anicteric Neck: no JVD, supple Respiratory: no wheezing, no rales, no rhonchi Cardiovascular: RRR, no significant murmur, no rub Gastrointestinal: soft, non-tender, no distention, positive bowel sounds morbid obesity limiting examiniation Musculoskeletal: pulses present, edema present Neurological: moves all 4 limbs Lymphatic: no nodes Psychiatric: normal affect Skin: no rash, normal turgor Dx/Plan (1) Acute kidney injury Code(s): N17.9 - ACUTE KIDNEY FAILURE, UNSPECIFIED Status: Acute (2) Acute on chronic respiratory failure with hypoxia and hypercapnia Code(s): J96.21 - ACUTE AND CHRONIC RESPIRATORY FAILURE WITH HYPOXIA; J96.22 - ACUTE AND CHRONIC RESPIRATORY FAILURE WITH HYPERCAPNIA Status: Acute (3) COPD exacerbation Code(s): J44.1 - CHRONIC OBSTRUCTIVE PULMONARY DISEASE W (ACUTE) EXACERBATION Status: Acute (4) Demand ischemia of myocardium Code(s): I24.8 - OTHER FORMS OF ACUTE ISCHEMIC HEART DISEASE Status: Acute (5) Rhabdomyolysis Code(s): M62.82 - RHABDOMYOLYSIS Status: Acute (6) CAD (coronary artery disease) Code(s): I25.10 - ATHSCL HEART DISEASE OF [place] CORONARY ARTERY W/O ANG PCTRS Status: Chronic Qualifiers: (7) Cardiomyopathy Code(s): I42.9 - CARDIOMYOPATHY, UNSPECIFIED Status: Chronic Qualifiers: (8) Compensated respiratory acidosis Code(s): E87.2 - ACIDOSIS Status: Chronic (9) DM2 (diabetes mellitus, type 2) Status: Chronic Qualifiers: (10) Dyslipidemia Code(s): E78.5 - HYPERLIPIDEMIA, UNSPECIFIED Status: Chronic (11) HTN (hypertension) Code(s): I10 - ESSENTIAL (PRIMARY) HYPERTENSION Status: Chronic Qualifiers: (12) Morbid obesity with BMI of 50.0-59.9, adult Code(s): E66.01 - [place] (SEVERE) OBESITY DUE TO EXCESS CALORIES; Z68.43 - BODY MASS INDEX (BMI) 50-59.9 , ADULT Status: Chronic (13) Obesity hypoventilation syndrome Code(s): E66.2 - [place] (SEVERE) OBESITY WITH ALVEOLAR HYPOVENTILATION Status : Chronic - Plan cont current plan of care * continue bipap as needed * cardiology and pulmonary recommendation noted * medication reviewed as below * symptomatic treatment * supportive care * now accucheck achs * start diabetic diet * echo today * continue diuresis and current optimum medical therapy for COPD. Review of Systems - Review of Systems ENT: negative: Ear Pain, Ear Discharge, Nose Pain, Nose Discharge, Nose Congestion, Mouth Pain, Mouth Swelling, Throat Pain, Throat Swelling, Other Respiratory: negative: Cough, Dry, Shortness of Breath, Hemoptysis, SOB with Excertion, Pleuritic Pain, Sputum, Wheezing Cardiovascular: negative: chest pain, palpitations, orthopnea, paroxysmal nocturnal dyspnea, edema, light headedness, other Gastrointestinal: negative: Nausea, Vomiting, Abdominal Pain, Diarrhea, Constipation, Melena, Hematochezia, Other Genitourinary: negative: Dysuria, Frequency, Incontinence, Hematuria, Retention , Other Musculoskeletal: negative: Neck Pain, Shoulder Pain, Arm Pain, Back Pain, Hand Pain, Leg Pain, Foot Pain, Other Skin: negative: Rash, Lesions, Heriberto, Bruising, Other - Medications/Allergies Allergies/Adverse Reactions: Allergies Allergy/AdvReac Type Severity Reaction Status Date / Time Sulfa (Sulfonamide Allergy Verified 02/05/17 15:01 Antibiotics) Medications: Current Medications Acetaminophen (Tylenol) 650 mg PO Q4H PRN PRN Reason: Headache/Fever or Pain Hydrocodone Bitart/Acetaminophen (Elmo 10/325) 1 tab PO Q4H PRN PRN Reason: Moderate Pain (4-6) Last Admin: 05/14/17 09:45 Dose: 1 tab Al Hydroxide/Mg Hydroxide (Maalox) 15 ml PO Q4H PRN PRN Reason: Heartburn or Indigestion Albuterol/Ipratropium (Duoneb) 3 ml NEB [id number] [facility] Last Admin: 05/14/17 11:33 Dose: 3 ml Albuterol/Ipratropium (Duoneb) 3 ml NEB [id number] PRN PRN Reason: SOB &/or Wheezing Artificial Tears (Tears Renewed 15ml Bottle) 0 drop EA EYE PRN PRN PRN Reason: Dry Eyes Aspirin (Ecotrin) 81 mg PO DAILY [facility] Last Admin: 05/14/17 09:45 Dose: 81 mg Benzonatate (Tessalon) 100 mg PO Q4H PRN PRN Reason: Cough Bisacodyl (Dulcolax) 10 mg NJ Q24H PRN PRN Reason: Constipation Budesonide (Pulmicort Neb Solution) 0.5 mg INH BID-RT [facility] Last Admin: 05/14/17 07:37 Dose: 0.5 mg Buspirone HCl (Buspar) 5 mg PO TID [facility] Last Admin: 05/14/17 09:46 Dose: 5 mg Calcium Carbonate (Tums) 1,000 mg PO Q4H PRN PRN Reason: Heartburn or Indigestion Carvedilol (Coreg) 3.125 mg PO BID [facility] Last Admin: 05/14/17 09:45 Dose: 3.125 mg Dextrose/Water (Dextrose 50%) 25 gm SLOW IVP PRN PRN PRN Reason: Hypoglycemia Docusate Sodium (Colace) 100 mg PO BID [facility] Last Admin: 05/14/17 09:45 Dose: 100 mg Famotidine (Pepcid) 20 mg PO BID [facility] Last Admin: 05/14/17 09:45 Dose: 20 mg Fluticasone Propionate (Flonase Nasal [place]) 0 gm NASAL DAILY [facility] Last Admin: 05/14/17 09:47 Dose: 2 spr Fluticasone Propionate (Flonase Nasal [place]) 0 gm NASAL DAILY [facility] Last Admin: 05/14/17 09:47 Dose: Not Given Furosemide (Lasix) 40 mg SLOW IVP 0600,1400 [facility] Last Admin: 05/14/17 05:46 Dose: 40 mg Gabapentin (Neurontin) 300 mg PO TID [facility] Last Admin: 05/14/17 09:45 Dose: 300 mg Glucagon (Glucagon) 1 mg IM PRN PRN PRN Reason: Hypoglycemia Guaifenesin (Robitussin Sf) 200 mg PO Q4H PRN PRN Reason: Cough Guaifenesin (Mucinex) 600 mg PO TID [facility] Last Admin: 05/14/17 09:45 Dose: 600 mg Hydralazine HCl (Apresoline) 10 mg SLOW IVP Q4H PRN PRN Reason: Systolic BP > 180 Dextrose/Water (D5w) 1,000 mls @ 0 mls/hr IV .Q0M PRN; As Directed PRN Reason: Hypoglycemia Insulin Detemir 55 units/ (Miscellaneous Medication) 0.55 mls @ 0 mls/hr SC HS [facility] Last Admin: 05/13/17 23:49 Dose: 0.55 mls Insulin Detemir 55 units/ (Miscellaneous Medication) 0.55 mls @ 0 mls/hr SC QAM [facility] Last Admin: 05/14/17 09:49 Dose: Not Given Ceftriaxone Sodium 1 gm/ (Syringe 0.4 ml/ Sterile Water) 10 mls @ 120 mls/hr SLOW IVP Q24HR@1800 [facility] Last Admin: 05/13/17 18:17 Dose: 10 mls Insulin Human Lispro (Humalog) 0 units SC .AGGRESSIVE SLIDING PRN PRN Reason: Aggressive Correctional Scale Insulin Human Regular (Humulin R) 0 units SC .BEDTIME SLIDING SC PRN PRN Reason: Bedtime Correctional Scale Loratadine (Claritin) 10 mg PO DAILYPRN PRN PRN Reason: Sinus Symptoms Magnesium Hydroxide (Milk Of Magnesium) 30 ml PO DAILYPRN PRN PRN Reason: Constipation Mineral Oil/White Petrolatum (Eucerin Cream) 0 gm TOP BIDPRN PRN PRN Reason: Dry Skin Nitroglycerin (Nitrostat) 0.4 mg PO Q5MIN PRN PRN Reason: Chest Pain Nitroglycerin (Nitro-Bid 2% Ointment) 0.5 inch TOP Q8H [facility] Stop: 05/14/17 17:07 Last Admin: 05/14/17 09:50 Dose: 0.5 inch Non-Formulary Medication (Alfuzosin Hcl [Alfuzosin Hcl Er]) 10 mg PO QPM [facility] Ondansetron HCl (Zofran Odt) 4 mg PO Q6H PRN PRN Reason: Nausea/Vomiting Ondansetron HCl (Zofran) 4 mg IVP Q6H PRN PRN Reason: Nausea/Vomiting Phenol (Chloraseptic Malone 180 Ml Bot) 0 ml PO PRN PRN PRN Reason: Sore Throat Saccharomyces Boulardii (Florastor) 250 mg PO DAILY [facility] Last Admin: 05/14/17 09:44 Dose: 250 mg Senna (Senokot) 2 tab PO HSPRN PRN PRN Reason: Constipation Sodium Chloride ([place] Nasal Mal[place] 0.65%) 0 ml EA NARE QIDPRN PRN PRN Reason: Nasal Congestion
[2017-05-14] MEDS: cefTRIAXone\\ROCEPHIN 1 GM, Syringe 0.4 ML in Sterile Water 9.6 ML SLOW IVP SCH (18:42)
[2017-05-14] MEDS: Alfuzosin 10 MG TABDR...ER PO SCH (20:43)
--- NOTE | 2017-05-14 21:37 | PRG ---
DATE OF SERVICE: 05/14/2017 SUBJECTIVE: Ishan Centeno has no new complaints. Took BiPAP off again this morning. PHYSICAL EXAMINATION: VITAL SIGNS: He is afebrile. Heart rate 62, respiratory rate 20, oximetry is 92 on 3.5 liters. Blo od pressure 118/40. LUNGS: Clear. HEART: Regular rhythm. ABDOMEN: Soft. LABORATORY DATA: White count 8.8, hemoglobin 10.0, platelets 172,000. Sodium 138, potassium 4.1, ch loride 95, bicarbonate 32, BUN 53, creatinine 1.58, creatinine was 1.92 yesterday. IMPRESSION: 1. Obstructive lung disease with an exacerbation. 2. Diastolic heart failure. 3. Obesity hypoventilation. 4. Blindness. PLAN: Continue blood pressure control. Diuresis as tolerated. BiPAP as needed.
[2017-05-15] MEDS: HYDROcodone/Acetaminophen 10/325 mg Tablet PO PRN ×4 (02:29→20:47)
[2017-05-15 05:04] LABS: #Eosinphils 0.3 thou/uL (0.0-0.7); #Lymphocytes 1.1 thou/uL (1.20-3.40); #Monocytes 0.7 thou/uL (0.11-0.59); #Neutrophils 5.3 thou/uL (1.40-6.50); %Basophils 0.4 % (0.0-1.0); %Monocytes 9.9 % (0.0-10.0); %Neutrophils 70.7 % (42.0-75.0); Hemoglobin 9.6 g/dL (14.0-18.0); Mean Corpuscular HGB CONC 29.3 g/dL (32.0-36.0); Mean Corpuscular Hemoglobin 28.7 pg (27.0-31.0); Mean Corpuscular Volume 97.9 fl (80.0-94.0); Mean Platelet Volume 8.2 fL (7.4-10.4); Platelet Count 172 thou/uL (130-400); RBC Distribution Width 16.3 % (11.5-14.5); Red Blood Cell (RBC) Count 3.33 mill/uL (4.70-6.10); White Blood Cell (WBC) Count 7.5 thou/uL (4.8-10.8)
[2017-05-15 05:25] LABS: ALT (SGPT) 49 U/L (8-55); AST (SGOT) 124 U/L (5-34); Albumin 3.2 g/dL (3.4-4.8); Alkaline Phosphatase 78 U/L (40-150); Anion Gap 11 mmol/L (10-20); BUN (Urea Nitrogen) 48 mg/dL (8.4-25.7); Bilirubin, Total 0.3 mg/dL (0.2-1.2); Calc. Creatinine Clearance 127 mL/min (70-130); Calcium 8.9 mg/dL (7.8-10.44); Carbon Dioxide 34 mmol/L (23-31); Chloride 97 mmol/L (98-107); Estimated GFR-MDRD 59; Globulin 3.3 g/dL (2.4-3.5); Glucose 93 mg/dL (80-115); Potassium 3.7 mmol/L (3.5-5.1); Protein, Total 6.5 g/dL (5.8-8.1); Sodium 138 mmol/L (136-145)
[2017-05-15 05:37] LABS: CK (CPK) 4859 U/L (30-200)
[2017-05-15] MEDS: Furosemide 40 MG/4 ML VIAL SLOW IVP SCH ×2 (05:53→14:14)
[2017-05-15] MEDS: Budesonide 0.5 MG/2 ML NEB INH SCH ×2 (08:31→19:36)
[2017-05-15] MEDS: Carvedilol 3.125 MG TAB PO SCH ×2 (08:40→20:48)
[2017-05-15] MEDS: Docusate 100 MG CAP PO SCH ×2 (08:40→20:48)
[2017-05-15] MEDS: busPIRone HCl 5 MG TAB PO SCH ×3 (08:40→20:48)
[2017-05-15] MEDS: Famotidine 20 MG TAB PO SCH ×2 (08:40→20:48)
[2017-05-15] MEDS: Saccharomyces boulardii 250 MG CAP PO SCH (08:40)
[2017-05-15] MEDS: Gabapentin 300 MG CAP PO SCH ×3 (08:40→20:47)
[2017-05-15] MEDS: guaiFENesin ER 600 MG TAB PO SCH ×3 (08:40→20:48)
[2017-05-15] MEDS: Aspirin 81 mg Enteric Coated Tablet PO SCH (08:40)
[2017-05-15] MEDS: Insulin Detemir 100 UNITS/ML 55 UNITS in Pre-Filled Syringe 1 EACH SC SCH ×2 (08:41→20:48)
[2017-05-15] MEDS: Fluticasone Propionate Nasal Spray 16 gm Bottle NASAL SCH ×2 (08:41→09:42)
--- NOTE | 2017-05-15 12:08 | PDOC.PN ---
- Subjective Encounter Start Date: 05/15/17 Encounter Start Time: 07:50 Patient seen and examined. No new complaints. No overnight events - Objective Resuscitation Status: Resuscitation Status DNR:Do Not Resuscitate MAR Reviewed: Yes Vital Signs & Weight: Vital Signs (12 hours) Temp Pulse Resp BP BP Pulse Ox 05/15/17 11:34 65 18 05/15/17 08:30 61 18 90 L 05/15/17 08:00 98.4 F 69 20 135/46 L 05/15/17 07:39 98.4 F 62 18 91 L 05/15/17 03:30 98.4 F 62 18 107/37 L 93 L 05/15/17 02:14 67 16 94 L Weight Admit Weight 349 lb Weight 351 lb 6.4 oz I&O: 05/14/17 05/15/17 05/16/17 06:59 06:59 06:59 Intake Total 375 1838 Output Total 995 3240 Balance -620 1402 Result Diagrams: 05/15/17 04:17 05/15/17 04:17 Additional Labs: Accuchecks 05/15/17 05/15/17 05/14/17 11:18 05:55 20:46 POC Glucose 110 87 179 H 05/14/17 16:59 POC Glucose 136 H EKG Reviewed by me: Yes (nsr) Phys Exam - Physical Examination Constitutional: NAD HEENT: PERRLA, moist MMs, sclera anicteric Neck: supple, full ROM Respiratory: no wheezing, no rales, no rhonchi reduced air entry Cardiovascular: RRR, no significant murmur, no rub Gastrointestinal: soft, non-tender, no distention, positive bowel sounds morbid obesity limiting exam Musculoskeletal: pulses present, edema present Neurological: non-focal, moves all 4 limbs Lymphatic: no nodes Psychiatric: normal affect Skin: no rash, normal turgor Dx/Plan (1) Acute kidney injury Code(s): N17.9 - ACUTE KIDNEY FAILURE, UNSPECIFIED Status: Resolved (2) Acute on chronic respiratory failure with hypoxia and hypercapnia Code(s): J96.21 - ACUTE AND CHRONIC RESPIRATORY FAILURE WITH HYPOXIA; J96.22 - ACUTE AND CHRONIC RESPIRATORY FAILURE WITH HYPERCAPNIA Status: Acute (3) COPD exacerbation Code(s): J44.1 - CHRONIC OBSTRUCTIVE PULMONARY DISEASE W (ACUTE) EXACERBATION Status: Acute (4) Demand ischemia of myocardium Code(s): I24.8 - OTHER FORMS OF ACUTE ISCHEMIC HEART DISEASE Status: Acute (5) Rhabdomyolysis Code(s): M62.82 - RHABDOMYOLYSIS Status: Acute (6) CAD (coronary artery disease) Code(s): I25.10 - ATHSCL HEART DISEASE OF [place] CORONARY ARTERY W/O ANG PCTRS Status: Chronic Qualifiers: (7) Cardiomyopathy Code(s): I42.9 - CARDIOMYOPATHY, UNSPECIFIED Status: Chronic Qualifiers: (8) Compensated respiratory acidosis Code(s): E87.2 - ACIDOSIS Status: Chronic (9) DM2 (diabetes mellitus, type 2) Status: Chronic Qualifiers: (10) Dyslipidemia Code(s): E78.5 - HYPERLIPIDEMIA, UNSPECIFIED Status: Chronic (11) HTN (hypertension) Code(s): I10 - ESSENTIAL (PRIMARY) HYPERTENSION Status: Chronic Qualifiers: (12) Morbid obesity with BMI of 50.0-59.9, adult Code(s): E66.01 - MORBID (SEVERE) OBESITY DUE TO EXCESS CALORIES; Z68.43 - BODY MASS INDEX (BMI) 50-59.9 , ADULT Status: Chronic (13) Obesity hypoventilation syndrome Code(s): E66.2 - MORBID (SEVERE) OBESITY WITH ALVEOLAR HYPOVENTILATION Status : Chronic (14) Blindness Code(s): H54.7 - UNSPECIFIED VISUAL LOSS Status: Chronic - Plan cont current plan of care, continue antibiotics, respiratory therapy * continue IV lasix for diuresis * COPD is now under control * continue bipap as needed * medication reviewed as below * symptomatic treatment. * CK still high, so will hold statin therapy * will adjust his medication dose Review of Systems - Review of Systems ENT: negative: Ear Pain, Ear Discharge, Nose Pain, Nose Discharge, Nose Congestion, Mouth Pain, Mouth Swelling, Throat Pain, Throat Swelling, Other Respiratory: negative: Cough, Dry, Shortness of Breath, Hemoptysis, SOB with Excertion, Pleuritic Pain, Sputum, Wheezing Cardiovascular: negative: chest pain, palpitations, orthopnea, paroxysmal nocturnal dyspnea, edema, light headedness, other Gastrointestinal: negative: Nausea, Vomiting, Abdominal Pain, Diarrhea, Constipation, Melena, Hematochezia, Other Genitourinary: negative: Dysuria, Frequency, Incontinence, Hematuria, Retention , Other Musculoskeletal: negative: Neck Pain, Shoulder Pain, Arm Pain, Back Pain, Hand Pain, Leg Pain, Foot Pain, Other - Medications/Allergies Allergies/Adverse Reactions: Allergies Allergy/AdvReac Type Severity Reaction Status Date / Time Sulfa (Sulfonamide Allergy Verified 02/05/17 15:01 Antibiotics) Medications: Current Medications Acetaminophen (Tylenol) 650 mg PO Q4H PRN PRN Reason: Headache/Fever or Pain Hydrocodone Bitart/Acetaminophen ([place] 10/325) 1 tab PO Q4H PRN PRN Reason: Moderate Pain (4-6) Last Admin: 05/15/17 08:39 Dose: 1 tab Al Hydroxide/Mg Hydroxide (Maalox) 15 ml PO Q4H PRN PRN Reason: Heartburn or Indigestion Albuterol/Ipratropium (Duoneb) 3 ml NEB [id number] [facility] Last Admin: 05/15/17 11:34 Dose: 3 ml Albuterol/Ipratropium (Duoneb) 3 ml NEB [id number] PRN PRN Reason: SOB &/or Wheezing Alfuzosin HCl (Uroxatral) 10 mg PO HS [facility] Last Admin: 05/14/17 20:43 Dose: 10 mg Artificial Tears (Tears Renewed 15ml Bottle) 0 drop EA EYE PRN PRN PRN Reason: Dry Eyes Aspirin (Ecotrin) 81 mg PO DAILY [facility] Last Admin: 05/15/17 08:40 Dose: 81 mg Benzonatate (Tessalon) 100 mg PO Q4H PRN PRN Reason: Cough Bisacodyl (Dulcolax) 10 mg [place] Q24H PRN PRN Reason: Constipation Budesonide (Pulmicort Neb Solution) 0.5 mg INH BID-RT [facility] Last Admin: 05/15/17 08:31 Dose: 0.5 mg Buspirone HCl (Buspar) 5 mg PO TID [facility] Last Admin: 05/15/17 08:40 Dose: 5 mg Calcium Carbonate (Tums) 1,000 mg PO Q4H PRN PRN Reason: Heartburn or Indigestion Carvedilol (Coreg) 3.125 mg PO BID [facility] Last Admin: 05/15/17 08:40 Dose: 3.125 mg Dextrose/Water (Dextrose 50%) 25 gm SLOW IVP PRN PRN PRN Reason: Hypoglycemia Docusate Sodium (Colace) 100 mg PO BID [facility] Last Admin: 05/15/17 08:40 Dose: 100 mg Famotidine (Pepcid) 20 mg PO BID [facility] Last Admin: 05/15/17 08:40 Dose: 20 mg Fluticasone Propionate (Flonase Nasal [place]) 0 gm NASAL DAILY [facility] Last Admin: 05/15/17 08:41 Dose: 2 spr Fluticasone Propionate (Flonase Nasal [place]) 0 gm NASAL DAILY [facility] Last Admin: 05/15/17 09:42 Dose: Not Given Furosemide (Lasix) 40 mg SLOW IVP 0600,1400 [facility] Last Admin: 05/15/17 05:53 Dose: 40 mg Gabapentin (Neurontin) 300 mg PO TID [facility] Last Admin: 05/15/17 08:40 Dose: 300 mg Glucagon (Glucagon) 1 mg IM PRN PRN PRN Reason: Hypoglycemia Guaifenesin (Robitussin Sf) 200 mg PO Q4H PRN PRN Reason: Cough Guaifenesin (Mucinex) 600 mg PO TID [facility] Last Admin: 05/15/17 08:40 Dose: 600 mg Hydralazine HCl (Apresoline) 10 mg SLOW IVP Q4H PRN PRN Reason: Systolic BP > 180 Dextrose/Water (D5w) 1,000 mls @ 0 mls/hr IV .Q0M PRN; As Directed PRN Reason: Hypoglycemia Insulin Detemir 55 units/ (Miscellaneous Medication) 0.55 mls @ 0 mls/hr SC HS [facility] Last Admin: 05/14/17 20:42 Dose: 0.55 mls Insulin Detemir 55 units/ (Miscellaneous Medication) 0.55 mls @ 0 mls/hr SC QAM [facility] Last Admin: 05/15/17 08:41 Dose: 0.55 mls Ceftriaxone Sodium 1 gm/ (Syringe 0.4 ml/ Sterile Water) 10 mls @ 120 mls/hr SLOW IVP Q24HR@1800 [facility] Last Admin: 05/14/17 18:42 Dose: 10 mls Insulin Human Lispro (Humalog) 0 units SC .AGGRESSIVE SLIDING PRN PRN Reason: Aggressive Correctional Scale Insulin Human Regular (Humulin R) 0 units SC .BEDTIME SLIDING SC PRN PRN Reason: Bedtime Correctional Scale Loratadine (Claritin) 10 mg PO DAILYPRN PRN PRN Reason: Sinus Symptoms Magnesium Hydroxide (Milk Of Magnesium) 30 ml PO DAILYPRN PRN PRN Reason: Constipation Mineral Oil/White Petrolatum (Eucerin Cream) 0 gm TOP BIDPRN PRN PRN Reason: Dry Skin Nitroglycerin (Nitrostat) 0.4 mg PO Q5MIN PRN PRN Reason: Chest Pain Ondansetron HCl (Zofran Odt) 4 mg PO Q6H PRN PRN Reason: Nausea/Vomiting Ondansetron HCl (Zofran) 4 mg IVP Q6H PRN PRN Reason: Nausea/Vomiting Phenol (Chloraseptic [place] 180 Ml Bot) 0 ml PO PRN PRN PRN Reason: Sore Throat Saccharomyces Boulardii (Florastor) 250 mg PO DAILY [facility] Last Admin: 05/15/17 08:40 Dose: 250 mg Senna (Senokot) 2 tab PO HSPRN PRN PRN Reason: Constipation Sodium Chloride ([place] Nasal [place] 0.65%) 0 ml EA NARE QIDPRN PRN PRN Reason: Nasal Congestion
[2017-05-15] MEDS: cefTRIAXone\\ROCEPHIN 1 GM, Syringe 0.4 ML in Sterile Water 9.6 ML SLOW IVP SCH (18:17)
[2017-05-15] MEDS: Alfuzosin 10 MG TABDR...ER PO SCH (20:52)
[2017-05-16] MEDS: HYDROcodone/Acetaminophen 10/325 mg Tablet PO PRN ×5 (02:32→20:01)
--- NOTE | 2017-05-16 03:27 | PRG ---
DATE OF SERVICE: 05/15/2017 Ishan Centeno was evaluated. He is in no distress. PHYSICAL EXAMINATION: VITAL SIGNS: He is afebrile, his heart rate in the 60s, respiratory rate 20, oximetry is 91 to 92, b lood pressure 177/58. Lungs are free of wheezes. LABORATORY: White count 7.5, hemoglobin 9.6, platelets 172,000. Sodium 138, potassium 3.7, chloride 97, bicarbonate 34, BUN 48, creatinine 1.21, glucose has been 180 or less. CPK has come down to 4859. IMPRESSION: 1. I doubt he has polymyositis or dermatomyositis, but this must be kept in mind. 2. Underlying obstructive lung disease with exacerbation. 3. Diastolic heart failure. 4. Obesity hypoventilation. 5. Blindness. 6. Hypertension. PLAN: Continue blood pressure control. Diuresis as tolerated. BiPAP as needed, nebulizer treatment s, serial exams and continuing documentation of creatine kinase moving towards normal with hydration and diuresis.
[2017-05-16] MEDS: Furosemide 40 MG/4 ML VIAL SLOW IVP SCH ×2 (06:13→15:50)
[2017-05-16] MEDS: Budesonide 0.5 MG/2 ML NEB INH SCH ×2 (08:16→22:05)
[2017-05-16] MEDS: Carvedilol 3.125 MG TAB PO SCH ×2 (10:59→20:02)
[2017-05-16] MEDS: guaiFENesin ER 600 MG TAB PO SCH ×3 (10:59→20:01)
[2017-05-16] MEDS: Aspirin 81 mg Enteric Coated Tablet PO SCH (10:59)
[2017-05-16] MEDS: Famotidine 20 MG TAB PO SCH ×2 (10:59→20:02)
[2017-05-16] MEDS: Gabapentin 300 MG CAP PO SCH ×3 (10:59→20:02)
[2017-05-16] MEDS: Docusate 100 MG CAP PO SCH ×2 (11:00→20:01)
[2017-05-16] MEDS: busPIRone HCl 5 MG TAB PO SCH ×3 (11:00→20:02)
[2017-05-16] MEDS: Fluticasone Propionate Nasal Spray 16 gm Bottle NASAL SCH ×2 (11:00→11:03)
[2017-05-16] MEDS: Insulin Detemir 100 UNITS/ML 55 UNITS in Pre-Filled Syringe 1 EACH SC SCH ×2 (11:01→20:02)
[2017-05-16] MEDS: Saccharomyces boulardii 250 MG CAP PO SCH (11:01)
--- NOTE | 2017-05-16 11:29 | PDOC.PN ---
- Subjective Encounter Start Date: 05/16/17 Encounter Start Time: 11:27 Patient seen at bedside. Still having CASTILLO, complains of leg cramps. - Objective Resuscitation Status: Resuscitation Status DNR:Do Not Resuscitate MAR Reviewed: Yes Vital Signs & Weight: Vital Signs (12 hours) Temp Pulse Resp BP Pulse Ox 05/16/17 11:10 70 20 97 05/16/17 08:14 65 22 H 100 05/16/17 08:00 98.1 F 63 24 H 158/70 H 96 05/16/17 06:29 98.1 F 68 20 151/80 H 100 05/16/17 02:32 98.7 F 70 20 170/66 H 94 L Weight Admit Weight 349 lb Weight 350 lb 11.2 oz I&O: 05/15/17 05/16/17 05/17/17 06:59 06:59 06:59 Intake Total 1838 1044 Output Total 3240 1850 Balance -1402 806 Result Diagrams: 05/15/17 04:17 05/15/17 04:17 Additional Labs: Accuchecks 05/16/17 05/15/17 05/15/17 05:02 19:22 17:07 POC Glucose 68 L 257 H 180 H 05/15/17 11:18 POC Glucose 110 Phys Exam - Physical Examination Constitutional: NAD HEENT: moist MMs Neck: no JVD mild wheezing, crackles bilaterally Cardiovascular: RRR Gastrointestinal: soft Musculoskeletal: edema present Neurological: moves all 4 limbs Psychiatric: A&O x 3 Dx/Plan (1) Acute on chronic respiratory failure with hypoxia and hypercapnia Code(s): J96.21 - ACUTE AND CHRONIC RESPIRATORY FAILURE WITH HYPOXIA; J96.22 - ACUTE AND CHRONIC RESPIRATORY FAILURE WITH HYPERCAPNIA Status: Acute (2) COPD exacerbation Code(s): J44.1 - CHRONIC OBSTRUCTIVE PULMONARY DISEASE W (ACUTE) EXACERBATION Status: Acute (3) Rhabdomyolysis Code(s): M62.82 - RHABDOMYOLYSIS Status: Acute (4) CAD (coronary artery disease) Code(s): I25.10 - ATHSCL HEART DISEASE OF [place] CORONARY ARTERY W/O ANG PCTRS Status: Chronic Qualifiers: (5) DM2 (diabetes mellitus, type 2) Status: Chronic Qualifiers: (6) Dyslipidemia Code(s): E78.5 - HYPERLIPIDEMIA, UNSPECIFIED Status: Chronic (7) HTN (hypertension) Code(s): I10 - ESSENTIAL (PRIMARY) HYPERTENSION Status: Chronic Qualifiers: - Plan cont current plan of care, plan discussed w/ family, social media strategist, respiratory therapy, DVT proph w/lovenox * Continue with current management. * Judicious with fluids due to CHF * Monitor CK, CMET * Hold statin due to Rhabdomyolysis * Duonebs * CM for disposition assistance
--- NOTE | 2017-05-16 16:30 | PRG ---
DATE OF SERVICE: 05/16/2017 SUBJECTIVE: He feels a little better today. He had no specific complaints for me. PHYSICAL EXAMINATION: VITAL SIGNS: His temperature 98.1, pulse 70, respirations 20, O2 saturation 97% on 4 liters, blood p ressure 158/70. HEENT: Unremarkable. NECK: No JVD. CHEST: Clear. CARDIAC: S1 and S2 regular. ABDOMEN: Soft. EXTREMITIES: Edematous. No new labs were obtained today other than a CPK of 2863, which is lower than admission. ASSESSMENT: 1. Rhabdomyolysis. 2. Diastolic cardiac dysfunction. 3. Obesity hypoventilation syndrome. PLAN: Continue BiPAP at night. Continue antibiotics. Continue diuresis.
[2017-05-16] MEDS: cefTRIAXone\\ROCEPHIN 1 GM, Syringe 0.4 ML in Sterile Water 9.6 ML SLOW IVP SCH (17:34)
[2017-05-16] MEDS: Alfuzosin 10 MG TABDR...ER PO SCH (20:01)
[2017-05-17] MEDS: HYDROcodone/Acetaminophen 10/325 mg Tablet PO PRN ×5 (03:32→21:22)
[2017-05-17] MEDS: Furosemide 40 MG/4 ML VIAL SLOW IVP SCH ×2 (06:22→15:04)
[2017-05-17 06:42] LABS: ALT (SGPT) 39 U/L (8-55); AST (SGOT) 68 U/L (5-34); Albumin 3.4 g/dL (3.4-4.8); Alkaline Phosphatase 72 U/L (40-150); Anion Gap 13 mmol/L (10-20); BUN (Urea Nitrogen) 30 mg/dL (8.4-25.7); Bilirubin, Total 0.4 mg/dL (0.2-1.2); CK (CPK) 1197 U/L (30-200); Calc. Creatinine Clearance 135 mL/min (70-130); Calcium 9.2 mg/dL (7.8-10.44); Carbon Dioxide 33 mmol/L (23-31); Chloride 100 mmol/L (98-107); Estimated GFR-MDRD 63; Globulin 3.5 g/dL (2.4-3.5); Glucose 68 mg/dL (80-115); Potassium 4.2 mmol/L (3.5-5.1); Protein, Total 6.9 g/dL (5.8-8.1); Sodium 142 mmol/L (136-145)
[2017-05-17] MEDS: Budesonide 0.5 MG/2 ML NEB INH SCH ×2 (07:29→19:43)
[2017-05-17] MEDS: busPIRone HCl 5 MG TAB PO SCH ×3 (07:45→21:22)
[2017-05-17] MEDS: Aspirin 81 mg Enteric Coated Tablet PO SCH (07:45)
[2017-05-17] MEDS: Famotidine 20 MG TAB PO SCH ×2 (07:45→21:25)
[2017-05-17] MEDS: Gabapentin 300 MG CAP PO SCH ×3 (07:45→21:25)
[2017-05-17] MEDS: guaiFENesin ER 600 MG TAB PO SCH ×3 (07:45→21:25)
[2017-05-17] MEDS: Saccharomyces boulardii 250 MG CAP PO SCH (07:45)
[2017-05-17] MEDS: Docusate 100 MG CAP PO SCH ×2 (07:46→21:26)
--- NOTE | 2017-05-17 09:42 | PDOC.PULPN ---
Progress Note: Subj/Obj - Subjective Date: 05/17/17 Time: 09:40 - Objective Allergies/Adverse Reactions: Allergies Allergy/AdvReac Type Severity Reaction Status Date / Time Sulfa (Sulfonamide Allergy Verified 02/05/17 15:01 Antibiotics) Medications: Current Medications Acetaminophen (Tylenol) 650 mg PO Q4H PRN PRN Reason: Headache/Fever or Pain Hydrocodone Bitart/Acetaminophen ([place] 10/325) 1 tab PO Q4H PRN PRN Reason: Moderate Pain (4-6) Last Admin: 05/17/17 07:44 Dose: 1 tab Al Hydroxide/Mg Hydroxide (Maalox) 15 ml PO Q4H PRN PRN Reason: Heartburn or Indigestion Albuterol/Ipratropium (Duoneb) 3 ml NEB [id number] [facility] Last Admin: 05/17/17 07:26 Dose: 3 ml Albuterol/Ipratropium (Duoneb) 3 ml NEB [id number] PRN PRN Reason: SOB &/or Wheezing Alfuzosin HCl (Uroxatral) 10 mg PO HS [facility] Last Admin: 05/16/17 20:01 Dose: 10 mg Artificial Tears (Tears Renewed 15ml Bottle) 0 drop EA EYE PRN PRN PRN Reason: Dry Eyes Aspirin (Ecotrin) 81 mg PO DAILY [facility] Last Admin: 05/17/17 07:45 Dose: 81 mg Benzonatate (Tessalon) 100 mg PO Q4H PRN PRN Reason: Cough Bisacodyl (Dulcolax) 10 mg [place] Q24H PRN PRN Reason: Constipation Budesonide (Pulmicort Neb Solution) 0.5 mg INH BID-RT [facility] Last Admin: 05/17/17 07:29 Dose: 0.5 mg Buspirone HCl (Buspar) 5 mg PO TID [facility] Last Admin: 05/17/17 07:45 Dose: 5 mg Calcium Carbonate (Tums) 1,000 mg PO Q4H PRN PRN Reason: Heartburn or Indigestion Carvedilol (Coreg) 3.125 mg PO BID [facility] Last Admin: 05/16/17 20:02 Dose: 3.125 mg Dextrose/Water (Dextrose 50%) 25 gm SLOW IVP PRN PRN PRN Reason: Hypoglycemia Docusate Sodium (Colace) 100 mg PO BID [facility] Last Admin: 05/17/17 07:46 Dose: 100 mg Famotidine (Pepcid) 20 mg PO BID [facility] Last Admin: 05/17/17 07:45 Dose: 20 mg Fluticasone Propionate (Flonase Nasal [place]) 0 gm NASAL DAILY [facility] Last Admin: 05/16/17 11:00 Dose: 2 spr Fluticasone Propionate (Flonase Nasal [place]) 0 gm NASAL DAILY [facility] Last Admin: 05/16/17 11:03 Dose: Not Given Furosemide (Lasix) 40 mg SLOW IVP 0600,1400 [facility] Last Admin: 05/17/17 06:22 Dose: 40 mg Gabapentin (Neurontin) 300 mg PO TID [facility] Last Admin: 05/17/17 07:45 Dose: 300 mg Glucagon (Glucagon) 1 mg IM PRN PRN PRN Reason: Hypoglycemia Guaifenesin (Robitussin Sf) 200 mg PO Q4H PRN PRN Reason: Cough Guaifenesin (Mucinex) 600 mg PO TID [facility] Last Admin: 05/17/17 07:45 Dose: 600 mg Hydralazine HCl (Apresoline) 10 mg SLOW IVP Q4H PRN PRN Reason: Systolic BP > 180 Dextrose/Water (D5w) 1,000 mls @ 0 mls/hr IV .Q0M PRN; As Directed PRN Reason: Hypoglycemia Insulin Detemir 55 units/ (Miscellaneous Medication) 0.55 mls @ 0 mls/hr SC HS [facility] Last Admin: 05/16/17 20:02 Dose: 0.55 mls Insulin Detemir 55 units/ (Miscellaneous Medication) 0.55 mls @ 0 mls/hr SC QAM [facility] Last Admin: 05/16/17 11:01 Dose: 0.55 mls Ceftriaxone Sodium 1 gm/ (Syringe 0.4 ml/ Sterile Water) 10 mls @ 120 mls/hr SLOW IVP Q24HR@1800 [facility] Last Admin: 05/16/17 17:34 Dose: 10 mls Insulin Human Lispro (Humalog) 0 units [place] .AGGRESSIVE SLIDING PRN PRN Reason: Aggressive Correctional Scale Insulin Human Regular (Humulin R) 0 units SC .BEDTIME SLIDING SC PRN PRN Reason: Bedtime Correctional Scale Isosorbide Mononitrate (Imdur) 60 mg PO DAILY [facility] Last Admin: 05/16/17 10:59 Dose: 60 mg Loratadine (Claritin) 10 mg PO DAILYPRN PRN PRN Reason: Sinus Symptoms Magnesium Hydroxide (Milk Of Magnesium) 30 ml PO DAILYPRN PRN PRN Reason: Constipation Menthol/Methyl Salicylate ([place]thritis Hot) 0 gm TOP PRN PRN PRN Reason: MUSCLE SORENESS Mineral Oil/White Petrolatum (Eucerin Cream) 0 gm TOP BIDPRN PRN PRN Reason: Dry Skin Nitroglycerin (Nitrostat) 0.4 mg PO Q5MIN PRN PRN Reason: Chest Pain Ondansetron HCl (Zofran Odt) 4 mg PO Q6H PRN PRN Reason: Nausea/Vomiting Ondansetron HCl (Zofran) 4 mg IVP Q6H PRN PRN Reason: Nausea/Vomiting Phenol (Chloraseptic [place] 180 Ml Bot) 0 ml PO PRN PRN PRN Reason: Sore Throat Saccharomyces Boulardii (Florastor) 250 mg PO DAILY [facility] Last Admin: 05/17/17 07:45 Dose: 250 mg Senna (Senokot) 2 tab PO HSPRN PRN PRN Reason: Constipation Sodium Chloride ([place] Nasal [place] 0.65%) 0 ml EA NARE QIDPRN PRN PRN Reason: Nasal Congestion MAR Reviewed: Yes Vital Signs: Vital Signs Temp 97.7 F 05/17/17 08:00 Pulse 65 05/17/17 08:00 Resp 20 05/17/17 08:00 BP 144/62 H 05/17/17 08:00 Pulse Ox 95 05/17/17 08:00 Intake & Output 05/16/17 05/17/17 05/17/17 18:59 06:59 18:59 Intake Total 1870 Output Total 1225 Balance 645 Weight 352 lb Intake: Oral 1870 Output: Urine 1225 Other: Voiding Method Urinal # Measured Voids 7 # Unmeasured Voids 2 Progress Note: Exam - Physical Exam Constitutional: NAD HEENT: PERRLA, moist MMs Neck: no nodes, no JVD Cardiovascular: RRR Respiratory: clear to auscultation bilaterally Gastrointestinal: soft Deviation from normal: obese Musculoskeletal: edema present Neurological: moves all 4 limbs Skin: no rash - Labs Result Diagrams: 05/15/17 04:05/17/17 05:33 Lab results: Laboratory Results - last 24 hr 05/16/17 05/16/17 05/16/17 11:29 17:06 20:39 Sodium Potassium Chloride Carbon Dioxide Anion Gap BUN Creatinine Estimated GFR (MDRD) Glucose POC Glucose 212 H 254 H 269 H Calcium Total Bilirubin AST ALT Alkaline Phosphatase Creatine Kinase Serum Total Protein Albumin Globulin Albumin/Globulin Ratio 05/17/17 05/17/17 05:33 05:38 Sodium 142 Potassium 4.2 Chloride 100 Carbon Dioxide 33 H Anion Gap 13 BUN 30 H Creatinine 1.15 Estimated GFR (MDRD) 63 Glucose 68 L POC Glucose 94 Calcium 9.2 Total Bilirubin 0.4 AST 68 H ALT 39 Alkaline Phosphatase 72 Creatine Kinase 1197 H Serum Total Protein 6.9 Albumin 3.4 Globulin 3.5 Albumin/Globulin Ratio 1.0 L Progress Note: A/P - Problems (1) Acute on chronic respiratory failure with hypoxia and hypercapnia Current Visit: Yes Status: Acute Code(s): J96.21 - ACUTE AND CHRONIC RESPIRATORY FAILURE WITH HYPOXIA; J96.22 - ACUTE AND CHRONIC RESPIRATORY FAILURE WITH HYPERCAPNIA (2) COPD exacerbation Current Visit: Yes Status: Acute Code(s): J44.1 - CHRONIC OBSTRUCTIVE PULMONARY DISEASE W (ACUTE) EXACERBATION - Plan Plan: present care rehab? no acute pulmonary issues. recall if further help needed
[2017-05-17] MEDS: Carvedilol 3.125 MG TAB PO SCH ×2 (10:28→21:26)
[2017-05-17] MEDS: Fluticasone Propionate Nasal Spray 16 gm Bottle NASAL SCH ×2 (10:28→10:29)
[2017-05-17] MEDS: Insulin Detemir 100 UNITS/ML 55 UNITS in Pre-Filled Syringe 1 EACH SC SCH ×2 (12:31→21:56)
--- NOTE | 2017-05-17 13:11 | PDOC.PN ---
- Subjective Encounter Start Date: 05/17/17 Encounter Start Time: 09:00 Patient seen and examined. No new complaints. No overnight events - Objective Resuscitation Status: Resuscitation Status DNR:Do Not Resuscitate MAR Reviewed: Yes Vital Signs & Weight: Vital Signs (12 hours) Temp Pulse Resp BP Pulse Ox 05/17/17 08:00 97.7 F 65 20 144/62 H 95 05/17/17 07:29 96 05/17/17 07:26 66 21 H 96 05/17/17 02:18 63 22 H Weight Admit Weight 349 lb Weight 352 lb I&O: 05/16/17 05/17/17 05/18/17 06:59 06:59 06:59 Intake Total 1044 1870 Output Total 1850 1225 Balance -806 645 Result Diagrams: 05/15/17 04:17 05/17/17 05:33 Additional Labs: Accuchecks 05/17/17 05/17/17 05/16/17 11:13 05:38 20:39 POC Glucose 192 H 94 269 H 05/16/17 17:06 POC Glucose 254 H Phys Exam - Physical Examination Constitutional: NAD HEENT: PERRLA, moist MMs, sclera anicteric Neck: no JVD, supple Respiratory: no wheezing, no rales, no rhonchi Cardiovascular: RRR, no significant murmur, no rub Gastrointestinal: soft, non-tender, no distention, positive bowel sounds morbid obesity Musculoskeletal: pulses present, edema present Neurological: non-focal, normal sensation Lymphatic: no nodes Psychiatric: normal affect Skin: no rash, normal turgor Dx/Plan (1) Acute kidney injury Code(s): N17.9 - ACUTE KIDNEY FAILURE, UNSPECIFIED Status: Resolved (2) Acute on chronic respiratory failure with hypoxia and hypercapnia Code(s): J96.21 - ACUTE AND CHRONIC RESPIRATORY FAILURE WITH HYPOXIA; J96.22 - ACUTE AND CHRONIC RESPIRATORY FAILURE WITH HYPERCAPNIA Status: Acute (3) COPD exacerbation Code(s): J44.1 - CHRONIC OBSTRUCTIVE PULMONARY DISEASE W (ACUTE) EXACERBATION Status: Acute (4) Demand ischemia of myocardium Code(s): I24.8 - OTHER FORMS OF ACUTE ISCHEMIC HEART DISEASE Status: Acute (5) Rhabdomyolysis Code(s): M62.82 - RHABDOMYOLYSIS Status: Acute (6) CAD (coronary artery disease) Code(s): I25.10 - ATHSCL HEART DISEASE OF [place] CORONARY ARTERY W/O ANG PCTRS Status: Chronic Qualifiers: (7) Cardiomyopathy Code(s): I42.9 - CARDIOMYOPATHY, UNSPECIFIED Status: Chronic Qualifiers: (8) Compensated respiratory acidosis Code(s): E87.2 - ACIDOSIS Status: Chronic (9) DM2 (diabetes mellitus, type 2) Status: Chronic Qualifiers: (10) Dyslipidemia Code(s): E78.5 - HYPERLIPIDEMIA, UNSPECIFIED Status: Chronic (11) HTN (hypertension) Code(s): I10 - ESSENTIAL (PRIMARY) HYPERTENSION Status: Chronic Qualifiers: (12) Morbid obesity with BMI of 50.0-59.9, adult Code(s): E66.01 - MORBID (SEVERE) OBESITY DUE TO EXCESS CALORIES; Z68.43 - BODY MASS INDEX (BMI) 50-59.9 , ADULT Status: Chronic (13) Obesity hypoventilation syndrome Code(s): E66.2 - MORBID (SEVERE) OBESITY WITH ALVEOLAR HYPOVENTILATION Status : Chronic (14) Blindness Code(s): H54.7 - UNSPECIFIED VISUAL LOSS Status: Chronic - Plan cont current plan of care, PT/OT, social service manager * * medication reviewed as below * symptomatic treatment * continue current medical treatment for COPD and CHF * pt is high risk for readmission * will need placement * consult social work case manager to SNU placement. Review of Systems - Review of Systems ENT: negative: Ear Pain, Ear Discharge, Nose Pain, Nose Discharge, Nose Congestion, Mouth Pain, Mouth Swelling, Throat Pain, Throat Swelling, Other Respiratory: negative: Cough, Dry, Shortness of Breath, Hemoptysis, SOB with Excertion, Pleuritic Pain, Sputum, Wheezing Cardiovascular: negative: chest pain, palpitations, orthopnea, paroxysmal nocturnal dyspnea, edema, light headedness, other Gastrointestinal: negative: Nausea, Vomiting, Abdominal Pain, Diarrhea, Constipation, Melena, Hematochezia, Other Genitourinary: negative: Dysuria, Frequency, Incontinence, Hematuria, Retention , Other Musculoskeletal: negative: Neck Pain, Shoulder Pain, Arm Pain, Back Pain, Hand Pain, Leg Pain, Foot Pain, Other Skin: negative: Rash, Lesions, Heriberto, Bruising, Other - Medications/Allergies Allergies/Adverse Reactions: Allergies Allergy/AdvReac Type Severity Reaction Status Date / Time Sulfa (Sulfonamide Allergy Verified 02/05/17 15:01 Antibiotics) Medications: Current Medications Acetaminophen (Tylenol) 650 mg PO Q4H PRN PRN Reason: Headache/Fever or Pain Hydrocodone Bitart/Acetaminophen ([place] 10/325) 1 tab PO Q4H PRN PRN Reason: Moderate Pain (4-6) Last Admin: 05/17/17 11:22 Dose: 1 tab Al Hydroxide/Mg Hydroxide (Maalox) 15 ml PO Q4H PRN PRN Reason: Heartburn or Indigestion Albuterol/Ipratropium (Duoneb) 3 ml NEB [id number] [facility] Last Admin: 05/17/17 07:26 Dose: 3 ml Albuterol/Ipratropium (Duoneb) 3 ml NEB [id number] PRN PRN Reason: SOB &/or Wheezing Alfuzosin HCl (Uroxatral) 10 mg PO HS [facility] Last Admin: 05/16/17 20:01 Dose: 10 mg Artificial Tears (Tears Renewed 15ml Bottle) 0 drop EA EYE PRN PRN PRN Reason: Dry Eyes Aspirin (Ecotrin) 81 mg PO DAILY [facility] Last Admin: 05/17/17 07:45 Dose: 81 mg Benzonatate (Tessalon) 100 mg PO Q4H PRN PRN Reason: Cough Bisacodyl (Dulcolax) 10 mg [place] Q24H PRN PRN Reason: Constipation Budesonide (Pulmicort Neb Solution) 0.5 mg INH BID-RT [facility] Last Admin: 05/17/17 07:29 Dose: 0.5 mg Buspirone HCl (Buspar) 5 mg PO TID [facility] Last Admin: 05/17/17 07:45 Dose: 5 mg Calcium Carbonate (Tums) 1,000 mg PO Q4H PRN PRN Reason: Heartburn or Indigestion Carvedilol (Coreg) 3.125 mg PO BID [facility] Last Admin: 05/17/17 10:28 Dose: 3.125 mg Dextrose/Water (Dextrose 50%) 25 gm SLOW IVP PRN PRN PRN Reason: Hypoglycemia Docusate Sodium (Colace) 100 mg PO BID [facility] Last Admin: 05/17/17 07:46 Dose: 100 mg Famotidine (Pepcid) 20 mg PO BID [facility] Last Admin: 05/17/17 07:45 Dose: 20 mg Fluticasone Propionate (Flonase Nasal [place]) 0 gm NASAL DAILY [facility] Last Admin: 05/17/17 10:29 Dose: Not Given Fluticasone Propionate (Flonase Nasal [place]) 0 gm NASAL DAILY [facility] Last Admin: 05/17/17 10:28 Dose: 2 spr Furosemide (Lasix) 40 mg SLOW IVP 0600,1400 [facility] Last Admin: 05/17/17 06:22 Dose: 40 mg Gabapentin (Neurontin) 300 mg PO TID [facility] Last Admin: 05/17/17 07:45 Dose: 300 mg Glucagon (Glucagon) 1 mg IM PRN PRN PRN Reason: Hypoglycemia Guaifenesin (Robitussin Sf) 200 mg PO Q4H PRN PRN Reason: Cough Guaifenesin (Mucinex) 600 mg PO TID [facility] Last Admin: 05/17/17 07:45 Dose: 600 mg Hydralazine HCl (Apresoline) 10 mg SLOW IVP Q4H PRN PRN Reason: Systolic BP > 180 Dextrose/Water (D5w) 1,000 mls @ 0 mls/hr IV .Q0M PRN; As Directed PRN Reason: Hypoglycemia Insulin Detemir 55 units/ (Miscellaneous Medication) 0.55 mls @ 0 mls/hr SC HS [facility] Last Admin: 05/16/17 20:02 Dose: 0.55 mls Insulin Detemir 55 units/ (Miscellaneous Medication) 0.55 mls @ 0 mls/hr SC QAM [facility] Last Admin: 05/17/17 12:31 Dose: 0.55 mls Ceftriaxone Sodium 1 gm/ (Syringe 0.4 ml/ Sterile Water) 10 mls @ 120 mls/hr SLOW IVP Q24HR@1800 [facility] Last Admin: 05/16/17 17:34 Dose: 10 mls Insulin Human Lispro (Humalog) 0 units SC .AGGRESSIVE SLIDING PRN PRN Reason: Aggressive Correctional Scale Insulin Human Regular (Humulin R) 0 units SC .BEDTIME SLIDING SC PRN PRN Reason: Bedtime Correctional Scale Isosorbide Mononitrate (Imdur) 60 mg PO DAILY [facility] Last Admin: 05/17/17 10:28 Dose: 60 mg Loratadine (Claritin) 10 mg PO DAILYPRN PRN PRN Reason: Sinus Symptoms Magnesium Hydroxide (Milk Of Magnesium) 30 ml PO DAILYPRN PRN PRN Reason: Constipation Menthol/Methyl Salicylate (Arthritis Hot) 0 gm TOP PRN PRN PRN Reason: MUSCLE SORENESS Mineral Oil/White Petrolatum (Eucerin Cream) 0 gm TOP BIDPRN PRN PRN Reason: Dry Skin Nitroglycerin (Nitrostat) 0.4 mg PO Q5MIN PRN PRN Reason: Chest Pain Ondansetron HCl (Zofran Odt) 4 mg PO Q6H PRN PRN Reason: Nausea/Vomiting Ondansetron HCl (Zofran) 4 mg IVP Q6H PRN PRN Reason: Nausea/Vomiting Phenol (Chloraseptic [place] 180 Ml Bot) 0 ml PO PRN PRN PRN Reason: Sore Throat Saccharomyces Boulardii (Florastor) 250 mg PO DAILY [facility] Last Admin: 05/17/17 07:45 Dose: 250 mg Senna (Senokot) 2 tab PO HSPRN PRN PRN Reason: Constipation Sodium Chloride ([place] Nasal [place] 0.65%) 0 ml EA NARE QIDPRN PRN PRN Reason: Nasal Congestion
--- NOTE | 2017-05-17 13:32 | PRG ---
DATE OF SERVICE: 05/17/2017 HISTORY OF PRESENT ILLNESS: Mr. Centeno continues to complain of muscle myalgias. He does state that things are improving. Last CK of 2862, which is down from 6000. PHYSICAL EXAMINATION: VITAL SIGNS: Blood pressure 144/64, pulse 60, temperature 97.7. LUNGS: Clear to auscultation. CARDIAC: Regular rate and rhythm. ABDOMEN: Soft, nontender, nondistended. EXTREMITIES: No edema. He is morbidly obese. IMPRESSION: 1. Rhabdomyolysis. 2. Coronary artery disease. 3. Status post bypass surgery. 4. Morbid obesity. RECOMMENDATIONS: From a CV standpoint, Mr. Centeno appears to be improving. At this point we will co ntinue with conservative therapy.
[2017-05-17] MEDS: MENTHOL TOP PRN (16:38)
[2017-05-17] MEDS: METHYL SALICYLATE TOP PRN (16:38)
[2017-05-17] MEDS: cefTRIAXone\\ROCEPHIN 1 GM, Syringe 0.4 ML in Sterile Water 9.6 ML SLOW IVP SCH (18:51)
[2017-05-17] MEDS: HumaLOG 300 UNITS/3 ML VIAL SC PRN (18:51)
[2017-05-17] MEDS: Alfuzosin 10 MG TABDR...ER PO SCH (21:27)
[2017-05-18] MEDS: METHYL SALICYLATE TOP PRN (00:22)
[2017-05-18] MEDS: MENTHOL TOP PRN (00:22)
[2017-05-18] MEDS: HYDROcodone/Acetaminophen 10/325 mg Tablet PO PRN ×5 (00:49→20:20)
[2017-05-18] MEDS: Furosemide 40 MG/4 ML VIAL SLOW IVP SCH ×3 (06:00→16:00)
[2017-05-18] MEDS: Budesonide 0.5 MG/2 ML NEB INH SCH ×2 (07:43→19:19)
[2017-05-18] MEDS: guaiFENesin ER 600 MG TAB PO SCH ×3 (08:11→20:12)
[2017-05-18] MEDS: Famotidine 20 MG TAB PO SCH ×2 (08:11→20:12)
[2017-05-18] MEDS: Carvedilol 3.125 MG TAB PO SCH ×2 (08:11→20:11)
[2017-05-18] MEDS: busPIRone HCl 5 MG TAB PO SCH ×3 (08:11→20:13)
[2017-05-18] MEDS: Gabapentin 300 MG CAP PO SCH ×3 (08:11→20:12)
[2017-05-18] MEDS: Saccharomyces boulardii 250 MG CAP PO SCH (08:11)
[2017-05-18] MEDS: Aspirin 81 mg Enteric Coated Tablet PO SCH (08:12)
[2017-05-18] MEDS: Docusate 100 MG CAP PO SCH ×2 (08:13→20:12)
[2017-05-18] MEDS: Fluticasone Propionate Nasal Spray 16 gm Bottle NASAL SCH ×2 (08:13→08:18)
[2017-05-18] MEDS: Insulin Detemir 100 UNITS/ML 55 UNITS in Pre-Filled Syringe 1 EACH SC SCH ×2 (09:46→20:13)
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
[2017-05-18] MEDS: HumaLOG 300 UNITS/3 ML VIAL SC PRN ×2 (12:17→17:06)
[2017-05-18] MEDS: cefTRIAXone\\ROCEPHIN 1 GM, Syringe 0.4 ML in Sterile Water 9.6 ML SLOW IVP SCH (17:02)
[2017-05-18] MEDS: Alfuzosin 10 MG TABDR...ER PO SCH (20:13)
[2017-05-18] MEDS: Insulin Regular 300 UNITS/3 ML VIAL SC PRN (20:21)
[2017-05-19] MEDS: HYDROcodone/Acetaminophen 10/325 mg Tablet PO PRN ×6 (01:32→23:27)
[2017-05-19] MEDS: Budesonide 0.5 MG/2 ML NEB INH SCH (06:17)
[2017-05-19] MEDS: guaiFENesin ER 600 MG TAB PO SCH ×3 (08:03→20:30)
[2017-05-19] MEDS: Saccharomyces boulardii 250 MG CAP PO SCH (08:03)
[2017-05-19] MEDS: Furosemide 40 MG/4 ML VIAL SLOW IVP SCH ×2 (08:04→16:54)
[2017-05-19] MEDS: busPIRone HCl 5 MG TAB PO SCH ×3 (08:04→20:30)
[2017-05-19] MEDS: Famotidine 20 MG TAB PO SCH ×2 (08:04→20:30)
[2017-05-19] MEDS: Gabapentin 300 MG CAP PO SCH ×3 (08:04→20:30)
[2017-05-19] MEDS: Aspirin 81 mg Enteric Coated Tablet PO SCH (08:04)
[2017-05-19] MEDS: Carvedilol 3.125 MG TAB PO SCH ×2 (08:04→20:30)
[2017-05-19] MEDS: Docusate 100 MG CAP PO SCH ×2 (08:08→20:31)
[2017-05-19] MEDS: Insulin Detemir 100 UNITS/ML 55 UNITS in Pre-Filled Syringe 1 EACH SC SCH ×2 (08:21→20:30)
[2017-05-19] MEDS: Fluticasone Propionate Nasal Spray 16 gm Bottle NASAL SCH ×2 (08:22→09:38)
--- NOTE | 2017-05-19 10:33 | PDOC.PN ---
- Subjective Encounter Start Date: 05/19/17 Encounter Start Time: 10:00 Patient seen and examined. No new complaints. No overnight events - Objective Resuscitation Status: Resuscitation Status DNR:Do Not Resuscitate MAR Reviewed: Yes Vital Signs & Weight: Vital Signs (12 hours) Temp Pulse Resp BP Pulse Ox 05/19/17 09:33 70 14 93 L 05/19/17 08:00 98.4 F 70 20 141/66 H 92 L 05/19/17 06:17 66 14 93 L 05/19/17 05:53 98.9 F 66 18 126/76 Weight Admit Weight 349 lb Weight 352 lb I&O: 05/18/17 05/19/17 05/20/17 06:59 06:59 06:59 Intake Total 480 Output Total 625 450 Balance -625 30 Result Diagrams: 05/15/17 04:17 05/17/17 05:33 Additional Labs: Accuchecks 05/19/17 05/18/17 05/18/17 05:53 19:53 16:26 POC Glucose 188 H 282 H 266 H 05/18/17 11:40 POC Glucose 214 H Phys Exam - Physical Examination Constitutional: NAD HEENT: PERRLA, moist MMs, sclera anicteric Neck: no JVD, supple Respiratory: no wheezing, no rales, no rhonchi Cardiovascular: RRR, no significant murmur, no rub Gastrointestinal: soft, non-tender, no distention, positive bowel sounds Musculoskeletal: pulses present, edema present Neurological: non-focal, normal sensation, moves all 4 limbs Psychiatric: normal affect, A&O x 3 Skin: no rash, normal turgor Dx/Plan (1) Acute kidney injury Code(s): N17.9 - ACUTE KIDNEY FAILURE, UNSPECIFIED Status: Resolved (2) Acute on chronic respiratory failure with hypoxia and hypercapnia Code(s): J96.21 - ACUTE AND CHRONIC RESPIRATORY FAILURE WITH HYPOXIA; J96.22 - ACUTE AND CHRONIC RESPIRATORY FAILURE WITH HYPERCAPNIA Status: Acute (3) COPD exacerbation Code(s): J44.1 - CHRONIC OBSTRUCTIVE PULMONARY DISEASE W (ACUTE) EXACERBATION Status: Acute (4) Demand ischemia of myocardium Code(s): I24.8 - OTHER FORMS OF ACUTE ISCHEMIC HEART DISEASE Status: Acute (5) Rhabdomyolysis Code(s): M62.82 - RHABDOMYOLYSIS Status: Acute (6) CAD (coronary artery disease) Code(s): I25.10 - ATHSCL HEART DISEASE OF [place] CORONARY ARTERY W/O ANG PCTRS Status: Chronic Qualifiers: (7) Cardiomyopathy Code(s): I42.9 - CARDIOMYOPATHY, UNSPECIFIED Status: Chronic Qualifiers: (8) Compensated respiratory acidosis Code(s): E87.2 - ACIDOSIS Status: Chronic (9) DM2 (diabetes mellitus, type 2) Status: Chronic Qualifiers: (10) Dyslipidemia Code(s): E78.5 - HYPERLIPIDEMIA, UNSPECIFIED Status: Chronic (11) HTN (hypertension) Code(s): I10 - ESSENTIAL (PRIMARY) HYPERTENSION Status: Chronic Qualifiers: (12) Morbid obesity with BMI of 50.0-59.9, adult Code(s): E66.01 - MORBID (SEVERE) OBESITY DUE TO EXCESS CALORIES; Z68.43 - BODY MASS INDEX (BMI) 50-59.9 , ADULT Status: Chronic (13) Obesity hypoventilation syndrome Code(s): E66.2 - MORBID (SEVERE) OBESITY WITH ALVEOLAR HYPOVENTILATION Status : Chronic (14) Blindness Code(s): H54.7 - UNSPECIFIED VISUAL LOSS Status: Chronic - Plan cont current plan of care, continue antibiotics, PT/OT, social services aide * overall stable and now appears to at baseline * has edema but due to venous insufficiency * continue lasix while in hospital * will not need any antibiotics on discharge * medication reviewed as below * symptomatic treatment. * await placement Review of Systems - Review of Systems ENT: negative: Ear Pain, Ear Discharge, Nose Pain, Nose Discharge, Nose Congestion, Mouth Pain, Mouth Swelling, Throat Pain, Throat Swelling, Other Respiratory: negative: Cough, Dry, Shortness of Breath, Hemoptysis, SOB with Excertion, Pleuritic Pain, Sputum, Wheezing Cardiovascular: edema. negative: chest pain, palpitations, orthopnea, paroxysmal nocturnal dyspnea, light headedness, other Gastrointestinal: negative: Nausea, Vomiting, Abdominal Pain, Diarrhea, Constipation, Melena, Hematochezia, Other Genitourinary: negative: Dysuria, Frequency, Incontinence, Hematuria, Retention , Other Musculoskeletal: negative: Neck Pain, Shoulder Pain, Arm Pain, Back Pain, Hand Pain, Leg Pain, Foot Pain, Other Skin: negative: Rash, Lesions, Heriberto, Bruising, Other - Medications/Allergies Allergies/Adverse Reactions: Allergies Allergy/AdvReac Type Severity Reaction Status Date / Time Sulfa (Sulfonamide Allergy Verified 02/05/17 15:01 Antibiotics) Medications: Current Medications Acetaminophen (Tylenol) 650 mg PO Q4H PRN PRN Reason: Headache/Fever or Pain Hydrocodone Bitart/Acetaminophen ([place] 10/325) 1 tab PO Q4H PRN PRN Reason: Moderate Pain (4-6) Last Admin: 05/19/17 09:36 Dose: 1 tab Al Hydroxide/Mg Hydroxide (Maalox) 15 ml PO Q4H PRN PRN Reason: Heartburn or Indigestion Albuterol/Ipratropium (Duoneb) 3 ml NEB [id number] [facility] Last Admin: 05/19/17 09:33 Dose: 3 ml Albuterol/Ipratropium (Duoneb) 3 ml NEB [id number] PRN PRN Reason: SOB &/or Wheezing Alfuzosin HCl (Uroxatral) 10 mg PO HS [facility] Last Admin: 05/18/17 20:13 Dose: 10 mg Artificial Tears (Tears Renewed 15ml Bottle) 0 drop EA EYE PRN PRN PRN Reason: Dry Eyes Aspirin (Ecotrin) 81 mg PO DAILY [facility] Last Admin: 05/19/17 08:04 Dose: 81 mg Benzonatate (Tessalon) 100 mg PO Q4H PRN PRN Reason: Cough Bisacodyl (Dulcolax) 10 mg RI Q24H PRN PRN Reason: Constipation Budesonide (Pulmicort Neb Solution) 0.5 mg INH BID-RT [facility] Last Admin: 05/19/17 06:17 Dose: 0.5 mg Buspirone HCl (Buspar) 5 mg PO TID [facility] Last Admin: 05/19/17 08:04 Dose: 5 mg Calcium Carbonate (Tums) 1,000 mg PO Q4H PRN PRN Reason: Heartburn or Indigestion Carvedilol (Coreg) 3.125 mg PO BID [facility] Last Admin: 05/19/17 08:04 Dose: 3.125 mg Dextrose/Water (Dextrose 50%) 25 gm SLOW IVP PRN PRN PRN Reason: Hypoglycemia Docusate Sodium (Colace) 100 mg PO BID [facility] Last Admin: 05/19/17 08:08 Dose: Not Given Famotidine (Pepcid) 20 mg PO BID [facility] Last Admin: 05/19/17 08:04 Dose: 20 mg Fluticasone Propionate (Flonase Nasal [place]) 0 gm NASAL DAILY [facility] Last Admin: 05/19/17 08:22 Dose: 2 spr Fluticasone Propionate (Flonase Nasal [place]) 0 gm NASAL DAILY [facility] Last Admin: 05/19/17 09:38 Dose: Not Given Furosemide (Lasix) 40 mg SLOW IVP 0900,1600 [facility] Last Admin: 05/19/17 08:04 Dose: 40 mg Gabapentin (Neurontin) 300 mg PO TID [facility] Last Admin: 05/19/17 08:04 Dose: 300 mg Glucagon (Glucagon) 1 mg IM PRN PRN PRN Reason: Hypoglycemia Guaifenesin (Robitussin Sf) 200 mg PO Q4H PRN PRN Reason: Cough Guaifenesin (Mucinex) 600 mg PO TID [facility] Last Admin: 05/19/17 08:03 Dose: 600 mg Hydralazine HCl (Apresoline) 10 mg SLOW IVP Q4H PRN PRN Reason: Systolic BP > 180 Last Admin: 05/18/17 17:01 Dose: 10 mg Dextrose/Water (D5w) 1,000 mls @ 0 mls/hr IV .Q0M PRN; As Directed PRN Reason: Hypoglycemia Insulin Detemir 55 units/ (Miscellaneous Medication) 0.55 mls @ 0 mls/hr SC HS [facility] Last Admin: 05/18/17 20:13 Dose: 0.55 mls Insulin Detemir 55 units/ (Miscellaneous Medication) 0.55 mls @ 0 mls/hr SC QAM [facility] Last Admin: 05/19/17 08:21 Dose: 0.55 mls Ceftriaxone Sodium 1 gm/ (Syringe 0.4 ml/ Sterile Water) 10 mls @ 120 mls/hr SLOW IVP Q24HR@1800 [facility] Last Admin: 05/18/17 17:02 Dose: 10 mls Insulin Human Lispro (Humalog) 0 units SC .AGGRESSIVE SLIDING PRN PRN Reason: Aggressive Correctional Scale Last Admin: 05/18/17 17:06 Dose: 9 unit Insulin Human Regular (Humulin R) 0 units SC .BEDTIME SLIDING SC PRN PRN Reason: Bedtime Correctional Scale Last Admin: 05/18/17 20:21 Dose: 3 unit Isosorbide Mononitrate (Imdur) 60 mg PO DAILY [facility] Last Admin: 05/19/17 08:04 Dose: 60 mg Loratadine (Claritin) 10 mg PO DAILYPRN PRN PRN Reason: Sinus Symptoms Magnesium Hydroxide (Milk Of Magnesium) 30 ml PO DAILYPRN PRN PRN Reason: Constipation Menthol/Methyl Salicylate (Arthritis Hot) 0 gm TOP PRN PRN PRN Reason: MUSCLE SORENESS Last Admin: 05/18/17 00:22 Dose: 1 applic Mineral Oil/White Petrolatum (Eucerin Cream) 0 gm TOP BIDPRN PRN PRN Reason: Dry Skin Nitroglycerin (Nitrostat) 0.4 mg PO Q5MIN PRN PRN Reason: Chest Pain Ondansetron HCl (Zofran Odt) 4 mg PO Q6H PRN PRN Reason: Nausea/Vomiting Ondansetron HCl (Zofran) 4 mg IVP Q6H PRN PRN Reason: Nausea/Vomiting Phenol (Chloraseptic [place] 180 Ml Bot) 0 ml PO PRN PRN PRN Reason: Sore Throat Saccharomyces Boulardii (Florastor) 250 mg PO DAILY [facility] Last Admin: 05/19/17 08:03 Dose: 250 mg Senna (Senokot) 2 tab PO HSPRN PRN PRN Reason: Constipation Sodium Chloride ([place] Nasal [place] 0.65%) 0 ml EA NARE QIDPRN PRN PRN Reason: Nasal Congestion
[2017-05-19 14:21] VITALS: BMI 52.0
[2017-05-19] MEDS: HumaLOG 300 UNITS/3 ML VIAL SC PRN (16:54)
[2017-05-19] MEDS: cefTRIAXone\\ROCEPHIN 1 GM, Syringe 0.4 ML in Sterile Water 9.6 ML SLOW IVP SCH (17:56)
[2017-05-19] MEDS: MENTHOL TOP PRN (17:56)
[2017-05-19] MEDS: METHYL SALICYLATE TOP PRN (17:56)
[2017-05-19] MEDS: Alfuzosin 10 MG TABDR...ER PO SCH (20:30)
[2017-05-19] MEDS: Insulin Regular 300 UNITS/3 ML VIAL SC PRN (20:39)
[2017-05-20] MEDS: Budesonide 0.5 MG/2 ML NEB INH SCH ×3 (00:56→21:45)
[2017-05-20] MEDS: HYDROcodone/Acetaminophen 10/325 mg Tablet PO PRN ×4 (07:32→23:21)
[2017-05-20] MEDS: Gabapentin 300 MG CAP PO SCH ×3 (07:32→19:59)
[2017-05-20] MEDS: Saccharomyces boulardii 250 MG CAP PO SCH (07:33)
[2017-05-20] MEDS: busPIRone HCl 5 MG TAB PO SCH ×3 (07:33→19:59)
[2017-05-20] MEDS: Docusate 100 MG CAP PO SCH ×2 (07:33→19:59)
[2017-05-20] MEDS: Carvedilol 3.125 MG TAB PO SCH ×2 (07:33→19:59)
[2017-05-20] MEDS: Famotidine 20 MG TAB PO SCH ×2 (07:33→19:59)
[2017-05-20] MEDS: guaiFENesin ER 600 MG TAB PO SCH ×3 (07:33→19:59)
[2017-05-20] MEDS: Furosemide 40 MG/4 ML VIAL SLOW IVP SCH ×2 (07:34→15:40)
[2017-05-20] MEDS: Aspirin 81 mg Enteric Coated Tablet PO SCH (07:34)
[2017-05-20] MEDS: Fluticasone Propionate Nasal Spray 16 gm Bottle NASAL SCH ×2 (07:34→07:35)
[2017-05-20] MEDS: Insulin Detemir 100 UNITS/ML 55 UNITS in Pre-Filled Syringe 1 EACH SC SCH ×2 (09:21→20:00)
--- NOTE | 2017-05-20 12:08 | PDOC.PN ---
- Subjective Encounter Start Date: 05/20/17 Encounter Start Time: 09:15 Patient seen and examined. No new complaints. No overnight events - Objective Resuscitation Status: Resuscitation Status DNR:Do Not Resuscitate MAR Reviewed: Yes Vital Signs & Weight: Vital Signs (12 hours) Temp Pulse Resp BP BP Pulse Ox 05/20/17 11:19 99.2 F 66 20 161/84 H 91 L 05/20/17 08:57 71 16 95 05/20/17 08:00 97.8 F 73 20 113/55 L 98 05/20/17 00:57 94 L 05/20/17 00:56 93 L Weight Admit Weight 349 lb Weight 352 lb I&O: 05/19/17 05/20/17 05/21/17 06:59 06:59 06:59 Intake Total 480 480 Output Total 450 800 Balance 30 -320 Result Diagrams: 05/15/17 04:17 05/17/17 05:33 Additional Labs: Accuchecks 05/20/17 05/20/17 05/19/17 10:33 05:48 20:39 POC Glucose 254 H 151 H 295 H 05/19/17 05/19/17 16:16 11:59 POC Glucose 266 H 184 H Phys Exam - Physical Examination Constitutional: NAD HEENT: PERRLA, moist MMs, sclera anicteric Neck: no JVD, supple Respiratory: no wheezing, no rales, no rhonchi Cardiovascular: RRR, no significant murmur, no rub Gastrointestinal: soft, non-tender, no distention, positive bowel sounds obesity+ Musculoskeletal: pulses present, edema present Neurological: non-focal, normal sensation Lymphatic: no nodes Psychiatric: normal affect, A&O x 3 Skin: no rash, normal turgor Dx/Plan (1) Acute kidney injury Code(s): N17.9 - ACUTE KIDNEY FAILURE, UNSPECIFIED Status: Resolved (2) Acute on chronic respiratory failure with hypoxia and hypercapnia Code(s): J96.21 - ACUTE AND CHRONIC RESPIRATORY FAILURE WITH HYPOXIA; J96.22 - ACUTE AND CHRONIC RESPIRATORY FAILURE WITH HYPERCAPNIA Status: Acute (3) COPD exacerbation Code(s): J44.1 - CHRONIC OBSTRUCTIVE PULMONARY DISEASE W (ACUTE) EXACERBATION Status: Acute (4) Demand ischemia of myocardium Code(s): I24.8 - OTHER FORMS OF ACUTE ISCHEMIC HEART DISEASE Status: Acute (5) Rhabdomyolysis Code(s): M62.82 - RHABDOMYOLYSIS Status: Acute (6) CAD (coronary artery disease) Code(s): I25.10 - ATHSCL HEART DISEASE OF [place] CORONARY ARTERY W/O ANG PCTRS Status: Chronic Qualifiers: (7) Cardiomyopathy Code(s): I42.9 - CARDIOMYOPATHY, UNSPECIFIED Status: Chronic Qualifiers: (8) Compensated respiratory acidosis Code(s): E87.2 - ACIDOSIS Status: Chronic (9) DM2 (diabetes mellitus, type 2) Status: Chronic Qualifiers: (10) Dyslipidemia Code(s): E78.5 - HYPERLIPIDEMIA, UNSPECIFIED Status: Chronic (11) HTN (hypertension) Code(s): I10 - ESSENTIAL (PRIMARY) HYPERTENSION Status: Chronic Qualifiers: (12) Morbid obesity with BMI of 50.0-59.9, adult Code(s): E66.01 - MORBID (SEVERE) OBESITY DUE TO EXCESS CALORIES; Z68.43 - BODY MASS INDEX (BMI) 50-59.9 , ADULT Status: Chronic (13) Obesity hypoventilation syndrome Code(s): E66.2 - MORBID (SEVERE) OBESITY WITH ALVEOLAR HYPOVENTILATION Status : Chronic (14) Blindness Code(s): H54.7 - UNSPECIFIED VISUAL LOSS Status: Chronic - Plan cont current plan of care, medical social consultant * medication reviewed as below * symptomatic treatment * continue lasix * await placement * stable and improving. Review of Systems - Review of Systems ENT: negative: Ear Pain, Ear Discharge, Nose Pain, Nose Discharge, Nose Congestion, Mouth Pain, Mouth Swelling, Throat Pain, Throat Swelling, Other Respiratory: negative: Cough, Dry, Shortness of Breath, Hemoptysis, SOB with Excertion, Pleuritic Pain, Sputum, Wheezing Cardiovascular: edema. negative: chest pain, palpitations, orthopnea, paroxysmal nocturnal dyspnea, light headedness, other Gastrointestinal: negative: Nausea, Vomiting, Abdominal Pain, Diarrhea, Constipation, Melena, Hematochezia, Other Genitourinary: negative: Dysuria, Frequency, Incontinence, Hematuria, Retention , Other Musculoskeletal: negative: Neck Pain, Shoulder Pain, Arm Pain, Back Pain, Hand Pain, Leg Pain, Foot Pain, Other - Medications/Allergies Allergies/Adverse Reactions: Allergies Allergy/AdvReac Type Severity Reaction Status Date / Time Sulfa (Sulfonamide Allergy Verified 02/05/17 15:01 Antibiotics) Medications: Current Medications Acetaminophen (Tylenol) 650 mg PO Q4H PRN PRN Reason: Headache/Fever or Pain Hydrocodone Bitart/Acetaminophen ([place] 10/325) 1 tab PO Q4H PRN PRN Reason: Moderate Pain (4-6) Last Admin: 05/20/17 07:32 Dose: 1 tab Al Hydroxide/Mg Hydroxide (Maalox) 15 ml PO Q4H PRN PRN Reason: Heartburn or Indigestion Albuterol/Ipratropium (Duoneb) 3 ml NEB [id number] [facility] Last Admin: 05/20/17 08:57 Dose: 3 ml Albuterol/Ipratropium (Duoneb) 3 ml NEB [id number] PRN PRN Reason: SOB &/or Wheezing Alfuzosin HCl (Uroxatral) 10 mg PO HS [facility] Last Admin: 05/19/17 20:30 Dose: 10 mg Artificial Tears (Tears Renewed 15ml Bottle) 0 drop EA EYE PRN PRN PRN Reason: Dry Eyes Aspirin (Ecotrin) 81 mg PO DAILY [facility] Last Admin: 05/20/17 07:34 Dose: 81 mg Benzonatate (Tessalon) 100 mg PO Q4H PRN PRN Reason: Cough Bisacodyl (Dulcolax) 10 mg SC Q24H PRN PRN Reason: Constipation Budesonide (Pulmicort Neb Solution) 0.5 mg INH BID-RT [facility] Last Admin: 05/20/17 08:57 Dose: 0.5 mg Buspirone HCl (Buspar) 5 mg PO TID [facility] Last Admin: 05/20/17 07:33 Dose: 5 mg Calcium Carbonate (Tums) 1,000 mg PO Q4H PRN PRN Reason: Heartburn or Indigestion Carvedilol (Coreg) 3.125 mg PO BID [facility] Last Admin: 05/20/17 07:33 Dose: 3.125 mg Dextrose/Water (Dextrose 50%) 25 gm SLOW IVP PRN PRN PRN Reason: Hypoglycemia Docusate Sodium (Colace) 100 mg PO BID [facility] Last Admin: 05/20/17 07:33 Dose: 100 mg Famotidine (Pepcid) 20 mg PO BID [facility] Last Admin: 05/20/17 07:33 Dose: 20 mg Fluticasone Propionate (Flonase Nasal [place]) 0 gm NASAL DAILY [facility] Last Admin: 05/20/17 07:34 Dose: 2 spr Fluticasone Propionate (Flonase Nasal [place]) 0 gm NASAL DAILY [facility] Last Admin: 05/20/17 07:35 Dose: Not Given Furosemide (Lasix) 40 mg SLOW IVP 0900,1600 [facility] Last Admin: 05/20/17 07:34 Dose: 40 mg Gabapentin (Neurontin) 300 mg PO TID [facility] Last Admin: 05/20/17 07:32 Dose: 300 mg Glucagon (Glucagon) 1 mg IM PRN PRN PRN Reason: Hypoglycemia Guaifenesin (Robitussin Sf) 200 mg PO Q4H PRN PRN Reason: Cough Guaifenesin (Mucinex) 600 mg PO TID [facility] Last Admin: 05/20/17 07:33 Dose: 600 mg Hydralazine HCl (Apresoline) 10 mg SLOW IVP Q4H PRN PRN Reason: Systolic BP > 180 Last Admin: 05/18/17 17:01 Dose: 10 mg Dextrose/Water (D5w) 1,000 mls @ 0 mls/hr IV .Q0M PRN; As Directed PRN Reason: Hypoglycemia Insulin Detemir 55 units/ (Miscellaneous Medication) 0.55 mls @ 0 mls/hr SC HS [facility] Last Admin: 05/19/17 20:30 Dose: 0.55 mls Insulin Detemir 55 units/ (Miscellaneous Medication) 0.55 mls @ 0 mls/hr SC QAM [facility] Last Admin: 05/20/17 09:21 Dose: 0.55 mls Ceftriaxone Sodium 1 gm/ (Syringe 0.4 ml/ Sterile Water) 10 mls @ 120 mls/hr SLOW IVP Q24HR@1800 [facility] Last Admin: 05/19/17 17:56 Dose: 10 mls Insulin Human Lispro (Humalog) 0 units SC .AGGRESSIVE SLIDING PRN PRN Reason: Aggressive Correctional Scale Last Admin: 05/19/17 16:54 Dose: 9 unit Insulin Human Regular (Humulin R) 0 units SC .BEDTIME SLIDING SC PRN PRN Reason: Bedtime Correctional Scale Last Admin: 05/19/17 20:39 Dose: 3 unit Isosorbide Mononitrate (Imdur) 60 mg PO DAILY [facility] Last Admin: 05/20/17 07:32 Dose: 60 mg Loratadine (Claritin) 10 mg PO DAILYPRN PRN PRN Reason: Sinus Symptoms Magnesium Hydroxide (Milk Of Magnesium) 30 ml PO DAILYPRN PRN PRN Reason: Constipation Menthol/Methyl Salicylate ([place]thritis Hot) 0 gm TOP PRN PRN PRN Reason: MUSCLE SORENESS Last Admin: 05/19/17 17:56 Dose: 1 applic Mineral Oil/White Petrolatum (Eucerin Cream) 0 gm TOP BIDPRN PRN PRN Reason: Dry Skin Nitroglycerin (Nitrostat) 0.4 mg PO Q5MIN PRN PRN Reason: Chest Pain Ondansetron HCl (Zofran Odt) 4 mg PO Q6H PRN PRN Reason: Nausea/Vomiting Ondansetron HCl (Zofran) 4 mg IVP Q6H PRN PRN Reason: Nausea/Vomiting Phenol (Chloraseptic [place] 180 Ml Bot) 0 ml PO PRN PRN PRN Reason: Sore Throat Saccharomyces Boulardii (Florastor) 250 mg PO DAILY [facility] Last Admin: 05/20/17 07:33 Dose: 250 mg Senna (Senokot) 2 tab PO HSPRN PRN PRN Reason: Constipation Sodium Chloride ([place] Nasal [place] 0.65%) 0 ml EA NARE QIDPRN PRN PRN Reason: Nasal Congestion
[2017-05-20] MEDS: HumaLOG 300 UNITS/3 ML VIAL SC PRN ×2 (15:45→20:04)
[2017-05-20] MEDS: cefTRIAXone\\ROCEPHIN 1 GM, Syringe 0.4 ML in Sterile Water 9.6 ML SLOW IVP SCH (18:04)
[2017-05-20] MEDS: Alfuzosin 10 MG TABDR...ER PO SCH (19:59)
[2017-05-21] MEDS: HYDROcodone/Acetaminophen 10/325 mg Tablet PO PRN ×4 (06:08→20:30)
[2017-05-21] MEDS: HumaLOG 300 UNITS/3 ML VIAL SC PRN ×2 (06:08→13:42)
[2017-05-21] MEDS: Budesonide 0.5 MG/2 ML NEB INH SCH ×2 (06:53→20:42)
[2017-05-21] MEDS: Insulin Detemir 100 UNITS/ML 55 UNITS in Pre-Filled Syringe 1 EACH SC SCH ×2 (08:26→20:32)
[2017-05-21] MEDS: Carvedilol 3.125 MG TAB PO SCH ×2 (08:27→20:30)
[2017-05-21] MEDS: guaiFENesin ER 600 MG TAB PO SCH ×3 (08:27→20:25)
[2017-05-21] MEDS: Famotidine 20 MG TAB PO SCH ×2 (08:27→20:25)
[2017-05-21] MEDS: busPIRone HCl 5 MG TAB PO SCH ×3 (08:27→20:25)
[2017-05-21] MEDS: Aspirin 81 mg Enteric Coated Tablet PO SCH (08:27)
[2017-05-21] MEDS: Docusate 100 MG CAP PO SCH ×2 (08:27→20:31)
[2017-05-21] MEDS: Gabapentin 300 MG CAP PO SCH ×3 (08:27→20:25)
[2017-05-21] MEDS: Saccharomyces boulardii 250 MG CAP PO SCH (08:27)
[2017-05-21] MEDS: Furosemide 40 MG/4 ML VIAL SLOW IVP SCH ×3 (08:28→16:17)
[2017-05-21] MEDS: Fluticasone Propionate Nasal Spray 16 gm Bottle NASAL SCH (08:28)
--- NOTE | 2017-05-21 11:03 | DIS ---
DATE OF ADMISSION: 05/13/2017 DATE OF DISCHARGE: 05/21/2017 PRIMARY CARE PHYSICIAN: Sadnie Grimes M.D. DISCHARGE DISPOSITION: Home. PRIMARY DISCHARGE DIAGNOSES: 1. Acute on chronic respiratory failure with hypoxia and hypercapnia. 2. Chronic obstructive pulmonary disease exacerbation. 3. Demand ischemia of myocardium. 4. Rhabdomyolysis. 5. Acute kidney failure, improved. 6. Acute on chronic diastolic congestive heart failure exacerbation. SECONDARY DISCHARGE DIAGNOSES: Morbid obesity with body mass index 52, obesity hypoventilation syndrome, blindness, coronary artery disease, chronic diastolic heart failure, compensated respiratory acidosis, diabetes type 2, dyslipidemia, physical deconditioning. PRIMARY PROCEDURE/OPERATION: None. RADIOLOGICAL INVESTIGATION: Chest x-ray on admission showed cardiomegaly and pulmonary vascular congestion and small bilateral pleural effusion. Echocardiography showed diastolic dysfunction and aortic stenosis. PRIMARY PROCEDURE/OPERATION: None. SIGNIFICANT LABORATORY DATA: WBC 7.5, hemoglobin 9.6, platelets 172, pCO2 68.6. Sodium 142, potassium 4.2, BUN 30, creatinine 1.15, calcium 9.2, AST 68, ALT 39, alkaline phosphatase 72, CK 1197, albumin 3.4, and LDL 39. Urinalysis unremarkable. Blood culture negative. Urine culture grew Corynebacterium, influenza negative. DISCHARGE MEDICATIONS: Alfuzosin hydrochloride 10 mg p.o. daily, aspirin 81 mg p.o. daily, Tessalon 100 mg q.4 hourly p.r.n., Symbicort 2 puffs inhalation b.i.d., buspirone 5 mg p.o. t.i.d., Coreg 3.125 mg p.o. b.i.d., Colace 100 mg p.o. daily, [place] 60 mg p.o. daily, ferrous sulfate 325 mg p.o. t.i.d., Flonase nasal spray daily, Lasix 80 mg p.o. b.i.d., gabapentin 300 mg p.o. t.i.d., [place] 10 one tablet q.4 hourly p.r.n., Levemir insulin 55 units subcu. b.i.d., DuoNeb q.6 hourly, Imdur 30 mg p.o. daily, methocarbamol 50 mg p.o. q.i.d. p.r.n., nitroglycerin 0.4 mg sublingual p.r.n., MiraLax 17 grams p.o. daily, prednisone 5 mg p.o. daily, and ranitidine 150 mg p.o. b.i.d. CONTRAINDICATIONS: None. CODE STATUS: DNR. INPATIENT CONSULTANTS: Dr. Morales was following while in hospital. Dr. Bowser was following while in hospital. TEST RESULTS PENDING ON DISCHARGE: None. ALLERGIES: SULFA DRUGS. DISCHARGE PLAN: Post hospital, patient is discharged to home. Subsequently, when rehab available at [facility], then patient will go to inpatient rehabilitation. HOSPITAL COURSE: A 72-year-old male who was living at halfway and he used his Medicare days at halfway and he was at home and he was having more shortness of breath and that is why he was brought to local emergency room and subsequently he was transferred to our emergency room. On admission, he had CO2 retention and hypoxia. He was found with acute on chronic hypoxic and hypercapnic respiratory failure. He was having COPD exacerbation and he was also having acute on chronic diastolic congestive heart failure exacerbation. This patient already has obesity hypoventilation syndrome and he is on CPAP machine at home. While in hospital, we used BiPAP initially and we continued with IV Lasix and we treated his COPD optimally with medical therapy. Patient was admitted initially in IMCU and upon stabilization, this patient was transferred to medical floor. This patient was DNR while in hospital. Cardiology and Pulmonary group was following while in hospital. Initially, this patient's son requested to send him to the half-way home. We tried to arrange half-way home from the hospital, but as he used his Medicare days and that is why the patient's family member and patient has to pay for that and at this point family members are not ready to do that and they want [facility] and that is why we started process for a half-way home at [facility], but he has to wait for several weeks for that. At this point, patient is medically stable enough to his baseline and that is why we are discharging this patient to home until he gets half-way home. He will continue all his medications and he will follow up with [facility]. He will follow up with primary care physician. All necessary equipment whatever he needs at home, he has at home. This patient is at high risk for recurrent admission given his multiple comorbidities and noncompliance. The patient is seen and examined at bedside today. PHYSICAL EXAMINATION: VITAL SIGNS: Currently, temperature 97.8, pulse 70, respiratory rate 16, saturation 94% on 3 liter, blood pressure 128/64. Weight 352 pounds. GENERAL: The patient is currently alert, awake, no acute distress. HEAD: Normocephalic, atraumatic. EYES: Pupils round, reactive to light. Extraocular muscles intact. ENT: Oropharynx within normal limits. LUNGS: Grossly clear to auscultation without any rhonchi or rales. CARDIAC: S1, S2. Appears regular without any significant murmur. ABDOMEN: Morbid obesity limiting examination. EXTREMITIES: Trace bilateral lower extremity edema noted, which is chronic for patient. NEUROLOGIC: Neurologically, nonfocal examination. Overall, patient is medically stable for discharge today. [facility]
--- NOTE | 2017-05-21 11:35 | PDOC.PN ---
- Subjective Encounter Start Date: 05/21/17 Encounter Start Time: 09:30 Patient seen and examined. No new complaints. No overnight events - Objective Resuscitation Status: Resuscitation Status DNR:Do Not Resuscitate MAR Reviewed: Yes Vital Signs & Weight: Vital Signs (12 hours) Temp Pulse Resp BP BP Pulse Ox 05/21/17 10:21 70 16 94 L 05/21/17 08:00 97.8 F 70 16 106/73 93 L 05/21/17 06:52 69 16 97 05/21/17 04:00 98.3 F 94 20 128/64 98 05/21/17 03:03 93 L 05/21/17 01:33 68 16 92 L 05/21/17 00:00 99.0 F 69 18 124/46 L 93 L Weight Admit Weight 349 lb Weight 352 lb I&O: 05/20/17 05/21/17 05/22/17 06:59 06:59 06:59 Intake Total 480 600 Output Total 800 2300 Balance -320 -1700 Result Diagrams: 05/15/17 04:17 05/17/17 05:33 Additional Labs: Accuchecks 05/21/17 05/20/17 05/20/17 04:44 19:59 15:44 POC Glucose 332 H 342 H 347 H Phys Exam - Physical Examination Constitutional: NAD HEENT: PERRLA, moist MMs, sclera anicteric Neck: no JVD, supple Respiratory: no wheezing, no rales, no rhonchi Cardiovascular: RRR, no significant murmur, no rub Gastrointestinal: soft, non-tender, no distention, positive bowel sounds Musculoskeletal: pulses present, edema present Neurological: non-focal, normal sensation Lymphatic: no nodes Psychiatric: normal affect Skin: no rash, normal turgor Dx/Plan (1) Acute kidney injury Code(s): N17.9 - ACUTE KIDNEY FAILURE, UNSPECIFIED Status: Resolved (2) Acute on chronic respiratory failure with hypoxia and hypercapnia Code(s): J96.21 - ACUTE AND CHRONIC RESPIRATORY FAILURE WITH HYPOXIA; J96.22 - ACUTE AND CHRONIC RESPIRATORY FAILURE WITH HYPERCAPNIA Status: Acute (3) COPD exacerbation Code(s): J44.1 - CHRONIC OBSTRUCTIVE PULMONARY DISEASE W (ACUTE) EXACERBATION Status: Acute (4) Demand ischemia of myocardium Code(s): I24.8 - OTHER FORMS OF ACUTE ISCHEMIC HEART DISEASE Status: Acute (5) Rhabdomyolysis Code(s): M62.82 - RHABDOMYOLYSIS Status: Acute (6) CAD (coronary artery disease) Code(s): I25.10 - ATHSCL HEART DISEASE OF [place] CORONARY ARTERY W/O ANG PCTRS Status: Chronic Qualifiers: (7) Cardiomyopathy Code(s): I42.9 - CARDIOMYOPATHY, UNSPECIFIED Status: Chronic Qualifiers: (8) Compensated respiratory acidosis Code(s): E87.2 - ACIDOSIS Status: Chronic (9) DM2 (diabetes mellitus, type 2) Status: Chronic Qualifiers: (10) Dyslipidemia Code(s): E78.5 - HYPERLIPIDEMIA, UNSPECIFIED Status: Chronic (11) HTN (hypertension) Code(s): I10 - ESSENTIAL (PRIMARY) HYPERTENSION Status: Chronic Qualifiers: (12) Morbid obesity with BMI of 50.0-59.9, adult Code(s): E66.01 - MORBID (SEVERE) OBESITY DUE TO EXCESS CALORIES; Z68.43 - BODY MASS INDEX (BMI) 50-59.9 , ADULT Status: Chronic (13) Obesity hypoventilation syndrome Code(s): E66.2 - MORBID (SEVERE) OBESITY WITH ALVEOLAR HYPOVENTILATION Status : Chronic (14) Blindness Code(s): H54.7 - UNSPECIFIED VISUAL LOSS Status: Chronic - Plan cont current plan of care, school social worker * medication reviewed as below * symptomatic treatment * stable for discharge * see discharge kallie. Review of Systems - Review of Systems ENT: negative: Ear Pain, Ear Discharge, Nose Pain, Nose Discharge, Nose Congestion, Mouth Pain, Mouth Swelling, Throat Pain, Throat Swelling, Other Respiratory: negative: Cough, Dry, Shortness of Breath, Hemoptysis, SOB with Excertion, Pleuritic Pain, Sputum, Wheezing Cardiovascular: negative: chest pain, palpitations, orthopnea, paroxysmal nocturnal dyspnea, edema, light headedness, other Gastrointestinal: negative: Nausea, Vomiting, Abdominal Pain, Diarrhea, Constipation, Melena, Hematochezia, Other Genitourinary: negative: Dysuria, Frequency, Incontinence, Hematuria, Retention , Other Musculoskeletal: negative: Neck Pain, Shoulder Pain, Arm Pain, Back Pain, Hand Pain, Leg Pain, Foot Pain, Other - Medications/Allergies Allergies/Adverse Reactions: Allergies Allergy/AdvReac Type Severity Reaction Status Date / Time Sulfa (Sulfonamide Allergy Verified 02/05/17 15:01 Antibiotics) Medications: Current Medications Acetaminophen (Tylenol) 650 mg PO Q4H PRN PRN Reason: Headache/Fever or Pain Hydrocodone Bitart/Acetaminophen ([place] 10/325) 1 tab PO Q4H PRN PRN Reason: Moderate Pain (4-6) Last Admin: 05/21/17 06:08 Dose: 1 tab Al Hydroxide/Mg Hydroxide (Maalox) 15 ml PO Q4H PRN PRN Reason: Heartburn or Indigestion Albuterol/Ipratropium (Duoneb) 3 ml NEB [id number] [facility] Last Admin: 05/21/17 10:21 Dose: 3 ml Albuterol/Ipratropium (Duoneb) 3 ml NEB [id number] PRN PRN Reason: SOB &/or Wheezing Alfuzosin HCl (Uroxatral) 10 mg PO HS [facility] Last Admin: 05/20/17 19:59 Dose: 10 mg Artificial Tears (Tears Renewed 15ml Bottle) 0 drop EA EYE PRN PRN PRN Reason: Dry Eyes Aspirin (Ecotrin) 81 mg PO DAILY [facility] Last Admin: 05/21/17 08:27 Dose: 81 mg Benzonatate (Tessalon) 100 mg PO Q4H PRN PRN Reason: Cough Bisacodyl (Dulcolax) 10 mg IN Q24H PRN PRN Reason: Constipation Budesonide (Pulmicort Neb Solution) 0.5 mg INH BID-RT [facility] Last Admin: 05/21/17 06:53 Dose: 0.5 mg Buspirone HCl (Buspar) 5 mg PO TID [facility] Last Admin: 05/21/17 08:27 Dose: 5 mg Calcium Carbonate (Tums) 1,000 mg PO Q4H PRN PRN Reason: Heartburn or Indigestion Carvedilol (Coreg) 3.125 mg PO BID [facility] Last Admin: 05/21/17 08:27 Dose: 3.125 mg Dextrose/Water (Dextrose 50%) 25 gm SLOW IVP PRN PRN PRN Reason: Hypoglycemia Docusate Sodium (Colace) 100 mg PO BID [facility] Last Admin: 05/21/17 08:27 Dose: 100 mg Famotidine (Pepcid) 20 mg PO BID [facility] Last Admin: 05/21/17 08:27 Dose: 20 mg Fluticasone Propionate (Flonase Nasal [place]) 0 gm NASAL DAILY [facility] Last Admin: 05/21/17 08:28 Dose: 2 spr Furosemide (Lasix) 40 mg SLOW IVP 0900,1600 [facility] Last Admin: 05/21/17 08:28 Dose: 40 mg Gabapentin (Neurontin) 300 mg PO TID [facility] Last Admin: 05/21/17 08:27 Dose: 300 mg Glucagon (Glucagon) 1 mg IM PRN PRN PRN Reason: Hypoglycemia Guaifenesin (Robitussin Sf) 200 mg PO Q4H PRN PRN Reason: Cough Guaifenesin (Mucinex) 600 mg PO TID [facility] Last Admin: 05/21/17 08:27 Dose: 600 mg Hydralazine HCl (Apresoline) 10 mg SLOW IVP Q4H PRN PRN Reason: Systolic BP > 180 Last Admin: 05/18/17 17:01 Dose: 10 mg Dextrose/Water (D5w) 1,000 mls @ 0 mls/hr IV .Q0M PRN; As Directed PRN Reason: Hypoglycemia Insulin Detemir 55 units/ (Miscellaneous Medication) 0.55 mls @ 0 mls/hr SC HS [facility] Last Admin: 05/20/17 20:00 Dose: 0.55 mls Insulin Detemir 55 units/ (Miscellaneous Medication) 0.55 mls @ 0 mls/hr SC QAM [facility] Last Admin: 05/21/17 08:26 Dose: 0.55 mls Ceftriaxone Sodium 1 gm/ (Syringe 0.4 ml/ Sterile Water) 10 mls @ 120 mls/hr SLOW IVP Q24HR@1800 [facility] Last Admin: 05/20/17 18:04 Dose: 10 mls Insulin Human Lispro (Humalog) 0 units SC .AGGRESSIVE SLIDING PRN PRN Reason: Aggressive Correctional Scale Last Admin: 05/21/17 06:08 Dose: 11 unit Insulin Human Regular (Humulin R) 0 units SC .BEDTIME SLIDING SC PRN PRN Reason: Bedtime Correctional Scale Last Admin: 05/19/17 20:39 Dose: 3 unit Isosorbide Mononitrate (Imdur) 60 mg PO DAILY [facility] Last Admin: 05/21/17 08:27 Dose: 60 mg Loratadine (Claritin) 10 mg PO DAILYPRN PRN PRN Reason: Sinus Symptoms Magnesium Hydroxide (Milk Of Magnesium) 30 ml PO DAILYPRN PRN PRN Reason: Constipation Menthol/Methyl Salicylate (Arthritis Hot) 0 gm TOP PRN PRN PRN Reason: MUSCLE SORENESS Last Admin: 05/19/17 17:56 Dose: 1 applic Mineral Oil/White Petrolatum (Eucerin Cream) 0 gm TOP BIDPRN PRN PRN Reason: Dry Skin Nitroglycerin (Nitrostat) 0.4 mg PO Q5MIN PRN PRN Reason: Chest Pain Ondansetron HCl (Zofran Odt) 4 mg PO Q6H PRN PRN Reason: Nausea/Vomiting Ondansetron HCl (Zofran) 4 mg IVP Q6H PRN PRN Reason: Nausea/Vomiting Phenol (Chloraseptic [place] 180 Ml Bot) 0 ml PO PRN PRN PRN Reason: Sore Throat Saccharomyces Boulardii (Florastor) 250 mg PO DAILY [facility] Last Admin: 05/21/17 08:27 Dose: 250 mg Senna (Senokot) 2 tab PO HSPRN PRN PRN Reason: Constipation Sodium Chloride ([place] Nasal [place] 0.65%) 0 ml EA NARE QIDPRN PRN PRN Reason: Nasal Congestion
--- NOTE | 2017-05-21 15:26 | EKG ---
Test Reason : Blood Pressure : / mmHG Vent. Rate : 072 BPM Atrial Rate : 072 BPM P-R Int : 286 ms QRS Dur : 116 ms QT Int : 420 ms P-R-T Axes : 026 007 020 degrees QTc Int : 459 ms Sinus rhythm with 1st degree A-V block Cannot rule out Anterior infarct , age undetermined Abnormal ECG Confirmed by REJI FOOTE, CHRIS Ruffin ([id number]), publication editor MILAN ALVA ([id number]) on 05/21/2017 3:26:05 PM Referred By: Confirmed By:CHRIS MENDOZA MD
[2017-05-21] MEDS: cefTRIAXone\\ROCEPHIN 1 GM, Syringe 0.4 ML in Sterile Water 9.6 ML SLOW IVP SCH (18:27)
[2017-05-21] MEDS: Alfuzosin 10 MG TABDR...ER PO SCH (20:25)
[2017-05-21] MEDS: Insulin Regular 300 UNITS/3 ML VIAL SC PRN (20:31)
[2017-05-21] MEDS: METHYL SALICYLATE TOP PRN (23:13)
[2017-05-21] MEDS: MENTHOL TOP PRN (23:13)
[2017-05-22] MEDS: HYDROcodone/Acetaminophen 10/325 mg Tablet PO PRN ×5 (00:20→20:32)
[2017-05-22] MEDS: HumaLOG 300 UNITS/3 ML VIAL SC PRN ×3 (04:57→18:41)
[2017-05-22] MEDS: Budesonide 0.5 MG/2 ML NEB INH SCH ×2 (07:11→18:32)
[2017-05-22] MEDS: Aspirin 81 mg Enteric Coated Tablet PO SCH (09:04)
[2017-05-22] MEDS: busPIRone HCl 5 MG TAB PO SCH ×3 (09:04→20:31)
[2017-05-22] MEDS: Famotidine 20 MG TAB PO SCH ×2 (09:04→20:31)
[2017-05-22] MEDS: Saccharomyces boulardii 250 MG CAP PO SCH (09:04)
[2017-05-22] MEDS: Carvedilol 3.125 MG TAB PO SCH ×2 (09:05→20:31)
[2017-05-22] MEDS: Gabapentin 300 MG CAP PO SCH ×3 (09:05→20:31)
[2017-05-22] MEDS: Fluticasone Propionate Nasal Spray 16 gm Bottle NASAL SCH (09:05)
[2017-05-22] MEDS: guaiFENesin ER 600 MG TAB PO SCH ×3 (09:05→20:31)
[2017-05-22] MEDS: Furosemide 40 MG/4 ML VIAL SLOW IVP SCH ×2 (09:05→15:34)
[2017-05-22] MEDS: Insulin Detemir 100 UNITS/ML 55 UNITS in Pre-Filled Syringe 1 EACH SC SCH ×2 (09:06→20:32)
[2017-05-22] MEDS: Docusate 100 MG CAP PO SCH ×2 (09:07→20:33)
--- NOTE | 2017-05-22 10:20 | PDOC.PN ---
- Subjective Encounter Start Date: 05/22/17 Encounter Start Time: 09:00 Patient seen and examined. No new complaints. No overnight events - Objective Resuscitation Status: Resuscitation Status DNR:Do Not Resuscitate MAR Reviewed: Yes Vital Signs & Weight: Vital Signs (12 hours) Temp Pulse Resp BP Pulse Ox 05/22/17 08:00 97.6 F 76 20 05/22/17 07:50 97.6 F 76 20 147/76 H 90 L 05/22/17 07:12 76 18 05/22/17 02:20 78 16 93 L 05/21/17 23:28 76 12 92 L Weight Admit Weight 349 lb Weight 352 lb I&O: 05/21/17 05/22/17 05/23/17 06:59 06:59 06:59 Intake Total 600 1448 Output Total 2300 0 Balance -1700 -602 Result Diagrams: 05/15/17 04:17 05/17/17 05:33 Additional Labs: Accuchecks 05/22/17 05/21/17 05/21/17 04:54 20:23 12:10 POC Glucose 283 H 375 H 253 H Phys Exam - Physical Examination Constitutional: NAD HEENT: PERRLA, moist MMs, sclera anicteric Neck: no JVD, supple Respiratory: no wheezing, no rales, no rhonchi Cardiovascular: RRR, no significant murmur, no rub Gastrointestinal: soft, non-tender, no distention, positive bowel sounds Musculoskeletal: edema present Neurological: non-focal Lymphatic: no nodes Psychiatric: normal affect, A&O x 3 Skin: no rash, normal turgor Dx/Plan (1) Acute kidney injury Code(s): N17.9 - ACUTE KIDNEY FAILURE, UNSPECIFIED Status: Resolved (2) Acute on chronic respiratory failure with hypoxia and hypercapnia Code(s): J96.21 - ACUTE AND CHRONIC RESPIRATORY FAILURE WITH HYPOXIA; J96.22 - ACUTE AND CHRONIC RESPIRATORY FAILURE WITH HYPERCAPNIA Status: Acute (3) COPD exacerbation Code(s): J44.1 - CHRONIC OBSTRUCTIVE PULMONARY DISEASE W (ACUTE) EXACERBATION Status: Acute (4) Demand ischemia of myocardium Code(s): I24.8 - OTHER FORMS OF ACUTE ISCHEMIC HEART DISEASE Status: Acute (5) Rhabdomyolysis Code(s): M62.82 - RHABDOMYOLYSIS Status: Acute (6) CAD (coronary artery disease) Code(s): I25.10 - ATHSCL HEART DISEASE OF [place] CORONARY ARTERY W/O ANG PCTRS Status: Chronic Qualifiers: (7) Cardiomyopathy Code(s): I42.9 - CARDIOMYOPATHY, UNSPECIFIED Status: Chronic Qualifiers: (8) Compensated respiratory acidosis Code(s): E87.2 - ACIDOSIS Status: Chronic (9) DM2 (diabetes mellitus, type 2) Status: Chronic Qualifiers: (10) Dyslipidemia Code(s): E78.5 - HYPERLIPIDEMIA, UNSPECIFIED Status: Chronic (11) HTN (hypertension) Code(s): I10 - ESSENTIAL (PRIMARY) HYPERTENSION Status: Chronic Qualifiers: (12) Morbid obesity with BMI of 50.0-59.9, adult Code(s): E66.01 - [place]BID (SEVERE) OBESITY DUE TO EXCESS CALORIES; Z68.43 - BODY MASS INDEX (BMI) 50-59.9 , ADULT Status: Chronic (13) Obesity hypoventilation syndrome Code(s): E66.2 - [place]ID (SEVERE) OBESITY WITH ALVEOLAR HYPOVENTILATION Status : Chronic (14) Blindness Code(s): H54.7 - UNSPECIFIED VISUAL LOSS Status: Chronic - Plan cont current plan of care, PT/OT, respiratory therapy * overall stable for discharge * while in hospital continue iv lasix * when ride available ok to DC to home * snu is not option as pt has used his medicare days * medication reviewed as below * symptomatic treatment. Review of Systems - Review of Systems ENT: negative: Ear Pain, Ear Discharge, Nose Pain, Nose Discharge, Nose Congestion, Mouth Pain, Mouth Swelling, Throat Pain, Throat Swelling, Other Respiratory: negative: Cough, Dry, Shortness of Breath, Hemoptysis, SOB with Excertion, Pleuritic Pain, Sputum, Wheezing Cardiovascular: negative: chest pain, palpitations, orthopnea, paroxysmal nocturnal dyspnea, edema, light headedness, other Gastrointestinal: negative: Nausea, Vomiting, Abdominal Pain, Diarrhea, Constipation, Melena, Hematochezia, Other Genitourinary: negative: Dysuria, Frequency, Incontinence, Hematuria, Retention , Other Musculoskeletal: negative: Neck Pain, Shoulder Pain, Arm Pain, Back Pain, Hand Pain, Leg Pain, Foot Pain, Other Skin: negative: Rash, Lesions, Heriberto, Bruising, Other - Medications/Allergies Allergies/Adverse Reactions: Allergies Allergy/AdvReac Type Severity Reaction Status Date / Time Sulfa (Sulfonamide Allergy Verified 02/05/17 15:01 Antibiotics) Medications: Current Medications Acetaminophen (Tylenol) 650 mg PO Q4H PRN PRN Reason: Headache/Fever or Pain Hydrocodone Bitart/Acetaminophen ([place] 10/325) 1 tab PO Q4H PRN PRN Reason: Moderate Pain (4-6) Last Admin: 05/22/17 04:49 Dose: 1 tab Al Hydroxide/Mg Hydroxide (Maalox) 15 ml PO Q4H PRN PRN Reason: Heartburn or Indigestion Albuterol/Ipratropium (Duoneb) 3 ml NEB [id number] [facility] Last Admin: 05/22/17 07:12 Dose: 3 ml Albuterol/Ipratropium (Duoneb) 3 ml NEB [id number] PRN PRN Reason: SOB &/or Wheezing Alfuzosin HCl (Uroxatral) 10 mg PO HS [facility] Last Admin: 05/21/17 20:25 Dose: 10 mg Artificial Tears (Tears Renewed 15ml Bottle) 0 drop EA EYE PRN PRN PRN Reason: Dry Eyes Aspirin (Ecotrin) 81 mg PO DAILY [facility] Last Admin: 05/22/17 09:04 Dose: 81 mg Benzonatate (Tessalon) 100 mg PO Q4H PRN PRN Reason: Cough Bisacodyl (Dulcolax) 10 mg [place] Q24H PRN PRN Reason: Constipation Budesonide (Pulmicort Neb Solution) 0.5 mg INH BID-RT [facility] Last Admin: 05/22/17 07:11 Dose: 0.5 mg Buspirone HCl (Buspar) 5 mg PO TID [facility] Last Admin: 05/22/17 09:04 Dose: 5 mg Calcium Carbonate (Tums) 1,000 mg PO Q4H PRN PRN Reason: Heartburn or Indigestion Carvedilol (Coreg) 3.125 mg PO BID [facility] Last Admin: 05/22/17 09:05 Dose: 3.125 mg Dextrose/Water (Dextrose 50%) 25 gm SLOW IVP PRN PRN PRN Reason: Hypoglycemia Docusate Sodium (Colace) 100 mg PO BID [facility] Last Admin: 05/22/17 09:07 Dose: Not Given Famotidine (Pepcid) 20 mg PO BID [facility] Last Admin: 05/22/17 09:04 Dose: 20 mg Fluticasone Propionate (Flonase Nasal [place]) 0 gm NASAL DAILY [facility] Last Admin: 05/22/17 09:05 Dose: 2 spr Furosemide (Lasix) 40 mg SLOW IVP 0900,1600 [facility] Last Admin: 05/22/17 09:05 Dose: 40 mg Gabapentin (Neurontin) 300 mg PO TID [facility] Last Admin: 05/22/17 09:05 Dose: 300 mg Glucagon (Glucagon) 1 mg IM PRN PRN PRN Reason: Hypoglycemia Guaifenesin (Robitussin Sf) 200 mg PO Q4H PRN PRN Reason: Cough Guaifenesin (Mucinex) 600 mg PO TID [facility] Last Admin: 05/22/17 09:05 Dose: 600 mg Hydralazine HCl (Apresoline) 10 mg SLOW IVP Q4H PRN PRN Reason: Systolic BP > 180 Last Admin: 05/18/17 17:01 Dose: 10 mg Dextrose/Water (D5w) 1,000 mls @ 0 mls/hr IV .Q0M PRN; As Directed PRN Reason: Hypoglycemia Insulin Detemir 55 units/ (Miscellaneous Medication) 0.55 mls @ 0 mls/hr SC HS [facility] Last Admin: 05/21/17 20:32 Dose: 0.55 mls Insulin Detemir 55 units/ (Miscellaneous Medication) 0.55 mls @ 0 mls/hr SC QAM [facility] Last Admin: 05/22/17 09:06 Dose: 0.55 mls Ceftriaxone Sodium 1 gm/ (Syringe 0.4 ml/ Sterile Water) 10 mls @ 120 mls/hr SLOW IVP Q24HR@1800 [facility] Last Admin: 05/21/17 18:27 Dose: 10 mls Insulin Human Lispro (Humalog) 0 units SC .AGGRESSIVE SLIDING PRN PRN Reason: Aggressive Correctional Scale Last Admin: 05/22/17 04:57 Dose: 9 unit Insulin Human Regular (Humulin R) 0 units SC .BEDTIME SLIDING SC PRN PRN Reason: Bedtime Correctional Scale Last Admin: 05/21/17 20:31 Dose: 5 unit Isosorbide Mononitrate (Imdur) 60 mg PO DAILY [facility] Last Admin: 05/22/17 09:05 Dose: 60 mg Loratadine (Claritin) 10 mg PO DAILYPRN PRN PRN Reason: Sinus Symptoms Magnesium Hydroxide (Milk Of Magnesium) 30 ml PO DAILYPRN PRN PRN Reason: Constipation Menthol/Methyl Salicylate ([place] Hot) 0 gm TOP PRN PRN PRN Reason: MUSCLE SORENESS Last Admin: 05/21/17 23:13 Dose: 1 applic Mineral Oil/White Petrolatum (Eucerin Cream) 0 gm TOP BIDPRN PRN PRN Reason: Dry Skin Nitroglycerin (Nitrostat) 0.4 mg PO Q5MIN PRN PRN Reason: Chest Pain Ondansetron HCl (Zofran Odt) 4 mg PO Q6H PRN PRN Reason: Nausea/Vomiting Ondansetron HCl (Zofran) 4 mg IVP Q6H PRN PRN Reason: Nausea/Vomiting Phenol (Chloraseptic [place] 180 Ml Bot) 0 ml PO PRN PRN PRN Reason: Sore Throat Saccharomyces Boulardii (Florastor) 250 mg PO DAILY [facility] Last Admin: 05/22/17 09:04 Dose: 250 mg Senna (Senokot) 2 tab PO HSPRN PRN PRN Reason: Constipation Sodium Chloride ([place] Nasal [place] 0.65%) 0 ml EA NARE QIDPRN PRN PRN Reason: Nasal Congestion
--- NOTE | 2017-05-22 11:21 | DIS ---
Please see my discharge summary dictated yesterday for further details. This patient somehow planned for discharge yesterday to go home, but he stated as per my conversation with the shoe parts caser on [employer], this patient has already used his Medicare days and that is why senior care home under [facility] care is not possible without payment from pocket, which patient and family member is not willing to d o and that the [facility] takes time to get into and that is why process was initiated b y shoe parts caser and that can be done through the [facility] system as well as an outpatient basis. Otherwise, this patient is medically stable. Once we have right for this particular patient, then he can be di scharged with his above-mentioned medication as per my previous discharge summary. Otherwise, this p atient is medically stable and he has continued to be high risk for readmission.
[2017-05-22] MEDS: METHYL SALICYLATE TOP PRN ×2 (12:11→22:11)
[2017-05-22] MEDS: MENTHOL TOP PRN ×2 (12:11→22:11)
[2017-05-22] MEDS: cefTRIAXone\\ROCEPHIN 1 GM, Syringe 0.4 ML in Sterile Water 9.6 ML SLOW IVP SCH (18:40)
[2017-05-22] MEDS: Alfuzosin 10 MG TABDR...ER PO SCH (20:32)
[2017-05-22] MEDS: Insulin Regular 300 UNITS/3 ML VIAL SC PRN (20:34)
[2017-05-23] MEDS: HYDROcodone/Acetaminophen 10/325 mg Tablet PO PRN ×4 (00:49→16:07)
[2017-05-23] MEDS: MENTHOL TOP PRN (05:10)
[2017-05-23] MEDS: METHYL SALICYLATE TOP PRN (05:10)
[2017-05-23] MEDS: HumaLOG 300 UNITS/3 ML VIAL SC PRN ×2 (05:12→17:48)
[2017-05-23] MEDS: Budesonide 0.5 MG/2 ML NEB INH SCH ×2 (07:09→18:28)
[2017-05-23] MEDS: Docusate 100 MG CAP PO SCH ×2 (09:08→21:17)
[2017-05-23] MEDS: Carvedilol 3.125 MG TAB PO SCH ×2 (09:08→21:17)
[2017-05-23] MEDS: Aspirin 81 mg Enteric Coated Tablet PO SCH (09:10)
[2017-05-23] MEDS: Gabapentin 300 MG CAP PO SCH ×3 (09:10→21:17)
[2017-05-23] MEDS: busPIRone HCl 5 MG TAB PO SCH ×3 (09:11→21:17)
[2017-05-23] MEDS: Furosemide 40 MG/4 ML VIAL SLOW IVP SCH ×2 (09:11→16:10)
[2017-05-23] MEDS: Famotidine 20 MG TAB PO SCH ×2 (09:11→21:17)
[2017-05-23] MEDS: Saccharomyces boulardii 250 MG CAP PO SCH (09:11)
[2017-05-23] MEDS: Insulin Detemir 100 UNITS/ML 55 UNITS in Pre-Filled Syringe 1 EACH SC SCH ×2 (09:12→22:00)
[2017-05-23] MEDS: Fluticasone Propionate Nasal Spray 16 gm Bottle NASAL SCH (09:12)
[2017-05-23] MEDS: guaiFENesin ER 600 MG TAB PO SCH ×3 (09:13→21:17)
--- NOTE | 2017-05-23 10:21 | PDOC.PN ---
- Subjective Encounter Start Date: 05/23/17 Encounter Start Time: 09:40 Patient seen and examined. No new complaints. No overnight events - Objective Resuscitation Status: Resuscitation Status DNR:Do Not Resuscitate MAR Reviewed: Yes Vital Signs & Weight: Vital Signs (12 hours) Temp Pulse Resp BP Pulse Ox 05/23/17 08:00 98.2 F 66 20 134/76 93 L 05/23/17 07:10 75 16 05/23/17 01:26 75 16 95 05/22/17 22:56 74 16 94 L Weight Admit Weight 349 lb Weight 352 lb I&O: 05/22/17 05/23/17 05/24/17 06:59 06:59 06:59 Intake Total 1448 1450 Output Total 2050 2250 Balance -602 -800 Result Diagrams: 05/15/17 04:17 05/17/17 05:33 Additional Labs: Accuchecks 05/23/17 05/22/17 05/22/17 05:12 20:24 15:51 POC Glucose 259 H 389 H 329 H 05/22/17 11:43 POC Glucose 314 H Phys Exam - Physical Examination Constitutional: NAD HEENT: PERRLA, moist MMs, sclera anicteric Neck: no JVD, supple Respiratory: no wheezing, no rales, no rhonchi Cardiovascular: RRR, no significant murmur, no rub Gastrointestinal: soft, non-tender, no distention, positive bowel sounds Musculoskeletal: pulses present, edema present Neurological: non-focal Lymphatic: no nodes Psychiatric: normal affect Skin: no rash, normal turgor Dx/Plan (1) Acute kidney injury Code(s): N17.9 - ACUTE KIDNEY FAILURE, UNSPECIFIED Status: Resolved (2) Acute on chronic respiratory failure with hypoxia and hypercapnia Code(s): J96.21 - ACUTE AND CHRONIC RESPIRATORY FAILURE WITH HYPOXIA; J96.22 - ACUTE AND CHRONIC RESPIRATORY FAILURE WITH HYPERCAPNIA Status: Acute (3) COPD exacerbation Code(s): J44.1 - CHRONIC OBSTRUCTIVE PULMONARY DISEASE W (ACUTE) EXACERBATION Status: Acute (4) Demand ischemia of myocardium Code(s): I24.8 - OTHER FORMS OF ACUTE ISCHEMIC HEART DISEASE Status: Acute (5) Rhabdomyolysis Code(s): M62.82 - RHABDOMYOLYSIS Status: Acute (6) CAD (coronary artery disease) Code(s): I25.10 - ATHSCL HEART DISEASE OF [place] CORONARY ARTERY W/O ANG PCTRS Status: Chronic Qualifiers: (7) Cardiomyopathy Code(s): I42.9 - CARDIOMYOPATHY, UNSPECIFIED Status: Chronic Qualifiers: (8) Compensated respiratory acidosis Code(s): E87.2 - ACIDOSIS Status: Chronic (9) DM2 (diabetes mellitus, type 2) Status: Chronic Qualifiers: (10) Dyslipidemia Code(s): E78.5 - HYPERLIPIDEMIA, UNSPECIFIED Status: Chronic (11) HTN (hypertension) Code(s): I10 - ESSENTIAL (PRIMARY) HYPERTENSION Status: Chronic Qualifiers: (12) Morbid obesity with BMI of 50.0-59.9, adult Code(s): E66.01 - MORBID (SEVERE) OBESITY DUE TO EXCESS CALORIES; Z68.43 - BODY MASS INDEX (BMI) 50-59.9 , ADULT Status: Chronic (13) Obesity hypoventilation syndrome Code(s): E66.2 - MORBID (SEVERE) OBESITY WITH ALVEOLAR HYPOVENTILATION Status : Chronic (14) Blindness Code(s): H54.7 - UNSPECIFIED VISUAL LOSS Status: Chronic - Plan cont current plan of care, PT/OT, social professionals, respiratory therapy * today will check cbc, cmp, mag, CK * continue diuresis * medication reviewed as below * symptomatic treatment * discharge planning with nurse outreach case manager. Review of Systems - Review of Systems Constitutional: negative: fever, chills, sweats, weakness, malaise, other ENT: negative: Ear Pain, Ear Discharge, Nose Pain, Nose Discharge, Nose Congestion, Mouth Pain, Mouth Swelling, Throat Pain, Throat Swelling, Other Respiratory: negative: Cough, Dry, Shortness of Breath, Hemoptysis, SOB with Excertion, Pleuritic Pain, Sputum, Wheezing Cardiovascular: orthopnea, edema. negative: chest pain, palpitations, paroxysmal nocturnal dyspnea, light headedness, other Gastrointestinal: negative: Nausea, Vomiting, Abdominal Pain, Diarrhea, Constipation, Melena, Hematochezia, Other Genitourinary: negative: Dysuria, Frequency, Incontinence, Hematuria, Retention , Other Musculoskeletal: negative: Neck Pain, Shoulder Pain, Arm Pain, Back Pain, Hand Pain, Leg Pain, Foot Pain, Other Skin: negative: Rash, Lesions, Heriberto, Bruising, Other - Medications/Allergies Allergies/Adverse Reactions: Allergies Allergy/AdvReac Type Severity Reaction Status Date / Time Sulfa (Sulfonamide Allergy Verified 02/05/17 15:01 Antibiotics) Medications: Current Medications Acetaminophen (Tylenol) 650 mg PO Q4H PRN PRN Reason: Headache/Fever or Pain Hydrocodone Bitart/Acetaminophen ([place] 10/325) 1 tab PO Q4H PRN PRN Reason: Moderate Pain (4-6) Last Admin: 05/23/17 09:10 Dose: 1 tab Al Hydroxide/Mg Hydroxide (Maalox) 15 ml PO Q4H PRN PRN Reason: Heartburn or Indigestion Albuterol/Ipratropium (Duoneb) 3 ml NEB [id number] [facility] Last Admin: 05/23/17 07:10 Dose: 3 ml Albuterol/Ipratropium (Duoneb) 3 ml NEB [id number] PRN PRN Reason: SOB &/or Wheezing Alfuzosin HCl (Uroxatral) 10 mg PO HS [facility] Last Admin: 05/22/17 20:32 Dose: 10 mg Artificial Tears (Tears Renewed 15ml Bottle) 0 drop EA EYE PRN PRN PRN Reason: Dry Eyes Aspirin (Ecotrin) 81 mg PO DAILY [facility] Last Admin: 05/23/17 09:10 Dose: 81 mg Benzonatate (Tessalon) 100 mg PO Q4H PRN PRN Reason: Cough Bisacodyl (Dulcolax) 10 mg [place] Q24H PRN PRN Reason: Constipation Budesonide (Pulmicort Neb Solution) 0.5 mg INH BID-RT [facility] Last Admin: 05/23/17 07:09 Dose: 0.5 mg Buspirone HCl (Buspar) 5 mg PO TID [facility] Last Admin: 05/23/17 09:11 Dose: 5 mg Calcium Carbonate (Tums) 1,000 mg PO Q4H PRN PRN Reason: Heartburn or Indigestion Carvedilol (Coreg) 3.125 mg PO BID [facility] Last Admin: 05/23/17 09:08 Dose: Not Given Dextrose/Water (Dextrose 50%) 25 gm SLOW IVP PRN PRN PRN Reason: Hypoglycemia Docusate Sodium (Colace) 100 mg PO BID [facility] Last Admin: 05/23/17 09:08 Dose: Not Given Famotidine (Pepcid) 20 mg PO BID [facility] Last Admin: 05/23/17 09:11 Dose: 20 mg Fluticasone Propionate (Flonase Nasal [place]) 0 gm NASAL DAILY [facility] Last Admin: 05/23/17 09:12 Dose: 2 spr Furosemide (Lasix) 40 mg SLOW IVP 0900,1600 [facility] Last Admin: 05/23/17 09:11 Dose: 40 mg Gabapentin (Neurontin) 300 mg PO TID [facility] Last Admin: 05/23/17 09:10 Dose: 300 mg Glucagon (Glucagon) 1 mg IM PRN PRN PRN Reason: Hypoglycemia Guaifenesin (Robitussin Sf) 200 mg PO Q4H PRN PRN Reason: Cough Guaifenesin (Mucinex) 600 mg PO TID [facility] Last Admin: 05/23/17 09:13 Dose: 600 mg Hydralazine HCl (Apresoline) 10 mg SLOW IVP Q4H PRN PRN Reason: Systolic BP > 180 Last Admin: 05/18/17 17:01 Dose: 10 mg Dextrose/Water (D5w) 1,000 mls @ 0 mls/hr IV .Q0M PRN; As Directed PRN Reason: Hypoglycemia Insulin Detemir 55 units/ (Miscellaneous Medication) 0.55 mls @ 0 mls/hr SC HS [facility] Last Admin: 05/22/17 20:32 Dose: 0.55 mls Insulin Detemir 55 units/ (Miscellaneous Medication) 0.55 mls @ 0 mls/hr SC QAM [facility] Last Admin: 05/23/17 09:12 Dose: 0.55 mls Ceftriaxone Sodium 1 gm/ (Syringe 0.4 ml/ Sterile Water) 10 mls @ 120 mls/hr SLOW IVP Q24HR@1800 [facility] Last Admin: 05/22/17 18:40 Dose: 10 mls Insulin Human Lispro (Humalog) 0 units SC .AGGRESSIVE SLIDING PRN PRN Reason: Aggressive Correctional Scale Last Admin: 05/23/17 05:12 Dose: 9 unit Insulin Human Regular (Humulin R) 0 units SC .BEDTIME SLIDING SC PRN PRN Reason: Bedtime Correctional Scale Last Admin: 05/22/17 20:34 Dose: 5 unit Isosorbide Mononitrate (Imdur) 60 mg PO DAILY [facility] Last Admin: 05/23/17 09:11 Dose: 60 mg Loratadine (Claritin) 10 mg PO DAILYPRN PRN PRN Reason: Sinus Symptoms Magnesium Hydroxide (Milk Of Magnesium) 30 ml PO DAILYPRN PRN PRN Reason: Constipation Menthol/Methyl Salicylate (Arthritis Hot) 0 gm TOP PRN PRN PRN Reason: MUSCLE SORENESS Last Admin: 05/23/17 05:10 Dose: 1 applic Mineral Oil/White Petrolatum (Eucerin Cream) 0 gm TOP BIDPRN PRN PRN Reason: Dry Skin Nitroglycerin (Nitrostat) 0.4 mg PO Q5MIN PRN PRN Reason: Chest Pain Ondansetron HCl (Zofran Odt) 4 mg PO Q6H PRN PRN Reason: Nausea/Vomiting Ondansetron HCl (Zofran) 4 mg IVP Q6H PRN PRN Reason: Nausea/Vomiting Phenol (Chloraseptic [place] 180 Ml Bot) 0 ml PO PRN PRN PRN Reason: Sore Throat Saccharomyces Boulardii (Florastor) 250 mg PO DAILY [facility] Last Admin: 05/23/17 09:11 Dose: 250 mg Senna (Senokot) 2 tab PO HSPRN PRN PRN Reason: Constipation Sodium Chloride ([place] Nasal [place] 0.65%) 0 ml EA NARE QIDPRN PRN PRN Reason: Nasal Congestion
[2017-05-23 12:07] LABS: #Eosinphils 0.3 thou/uL (0.0-0.7); #Lymphocytes 0.9 thou/uL (1.20-3.40); #Monocytes 0.5 thou/uL (0.11-0.59); #Neutrophils 3.9 thou/uL (1.40-6.50); %Basophils 0.6 % (0.0-1.0); %Eosinophils 4.8 % (0.0-10.0); %Lymphocytes 15.5 % (21.0-51.0); %Monocytes 9.6 % (0.0-10.0); %Neutrophils 69.5 % (42.0-75.0); Hemoglobin 9.7 g/dL (14.0-18.0); Mean Corpuscular HGB CONC 30.8 g/dL (32.0-36.0); Mean Corpuscular Hemoglobin 29.5 pg (27.0-31.0); Mean Corpuscular Volume 95.9 fl (80.0-94.0); Mean Platelet Volume 7.4 fL (7.4-10.4); Platelet Count 190 thou/uL (130-400); RBC Distribution Width 15.6 % (11.5-14.5); White Blood Cell (WBC) Count 5.6 thou/uL (4.8-10.8)
[2017-05-23 12:16] LABS: ALT (SGPT) 16 U/L (8-55); AST (SGOT) 12 U/L (5-34); Albumin 3.3 g/dL (3.4-4.8); Alkaline Phosphatase 66 U/L (40-150); Anion Gap 14 mmol/L (10-20); BUN (Urea Nitrogen) 23 mg/dL (8.4-25.7); Bilirubin, Total 0.3 mg/dL (0.2-1.2); CK (CPK) 59 U/L (30-200); Calc. Creatinine Clearance 140 mL/min (70-130); Calcium 9.6 mg/dL (7.8-10.44); Carbon Dioxide 33 mmol/L (23-31); Chloride 94 mmol/L (98-107); Estimated GFR-MDRD 65; Globulin 3.5 g/dL (2.4-3.5); Glucose 271 mg/dL (80-115); Magnesium 2.3 mg/dL (1.6-2.6); Potassium 4.5 mmol/L (3.5-5.1); Protein, Total 6.8 g/dL (5.8-8.1); Sodium 136 mmol/L (136-145)
[2017-05-23] MEDS: Acetaminophen 325 MG TAB PO PRN (18:32)
[2017-05-23] MEDS: cefTRIAXone\\ROCEPHIN 1 GM, Syringe 0.4 ML in Sterile Water 9.6 ML SLOW IVP SCH (18:32)
[2017-05-23] MEDS: Alfuzosin 10 MG TABDR...ER PO SCH (21:17)
[2017-05-24] MEDS: HYDROcodone/Acetaminophen 10/325 mg Tablet PO PRN ×6 (01:16→23:04)
[2017-05-24] MEDS: HumaLOG 300 UNITS/3 ML VIAL SC PRN ×3 (07:17→17:57)
[2017-05-24] MEDS: Budesonide 0.5 MG/2 ML NEB INH SCH ×2 (07:31→18:53)
[2017-05-24] MEDS: Docusate 100 MG CAP PO SCH ×2 (08:31→19:47)
[2017-05-24] MEDS: Aspirin 81 mg Enteric Coated Tablet PO SCH (08:31)
[2017-05-24] MEDS: Saccharomyces boulardii 250 MG CAP PO SCH (08:31)
[2017-05-24] MEDS: Gabapentin 300 MG CAP PO SCH ×3 (08:32→19:46)
[2017-05-24] MEDS: busPIRone HCl 5 MG TAB PO SCH ×3 (08:32→19:46)
[2017-05-24] MEDS: Carvedilol 3.125 MG TAB PO SCH ×2 (08:32→19:46)
[2017-05-24] MEDS: Furosemide 40 MG/4 ML VIAL SLOW IVP SCH ×2 (08:32→17:57)
[2017-05-24] MEDS: Famotidine 20 MG TAB PO SCH ×2 (08:32→19:47)
[2017-05-24] MEDS: guaiFENesin ER 600 MG TAB PO SCH ×3 (08:32→19:47)
[2017-05-24] MEDS: Acetaminophen 325 MG TAB PO PRN (08:36)
[2017-05-24] MEDS: Fluticasone Propionate Nasal Spray 16 gm Bottle NASAL SCH (08:42)
[2017-05-24] MEDS: Insulin Detemir 100 UNITS/ML 55 UNITS in Pre-Filled Syringe 1 EACH SC SCH ×2 (09:53→19:47)
--- NOTE | 2017-05-24 10:37 | PDOC.PN ---
- Subjective Encounter Start Date: 05/24/17 Encounter Start Time: 09:10 Patient seen and examined. No new complaints. No overnight events - Objective Resuscitation Status: Resuscitation Status DNR:Do Not Resuscitate MAR Reviewed: Yes Vital Signs & Weight: Vital Signs (12 hours) Temp Pulse Resp BP Pulse Ox 05/24/17 08:00 97.8 F 70 20 180/78 H 100 05/24/17 01:45 68 16 95 05/24/17 00:00 99.6 F 72 20 128/75 98 05/23/17 23:08 69 15 94 L Weight Admit Weight 349 lb Weight 352 lb I&O: 05/23/17 05/24/17 05/25/17 06:59 06:59 06:59 Intake Total 1450 3040 Output Total 2250 2920 Balance -800 120 Result Diagrams: 05/23/17 11:44 05/23/17 11:44 Additional Labs: Accuchecks 05/24/17 05/23/17 05/23/17 04:41 19:52 16:21 POC Glucose 269 H 367 H 307 H 05/23/17 12:14 POC Glucose 250 H Phys Exam - Physical Examination Constitutional: NAD HEENT: PERRLA, moist MMs, sclera anicteric Neck: no JVD, supple Respiratory: no wheezing, no rales, no rhonchi Cardiovascular: RRR, no significant murmur, no rub Gastrointestinal: soft, non-tender, no distention, positive bowel sounds morbid obesity limiting exam Musculoskeletal: pulses present, edema present Neurological: non-focal, normal sensation, moves all 4 limbs Psychiatric: normal affect Skin: no rash, normal turgor Dx/Plan (1) Acute kidney injury Code(s): N17.9 - ACUTE KIDNEY FAILURE, UNSPECIFIED Status: Resolved (2) Acute on chronic respiratory failure with hypoxia and hypercapnia Code(s): J96.21 - ACUTE AND CHRONIC RESPIRATORY FAILURE WITH HYPOXIA; J96.22 - ACUTE AND CHRONIC RESPIRATORY FAILURE WITH HYPERCAPNIA Status: Acute (3) COPD exacerbation Code(s): J44.1 - CHRONIC OBSTRUCTIVE PULMONARY DISEASE W (ACUTE) EXACERBATION Status: Acute (4) Demand ischemia of myocardium Code(s): I24.8 - OTHER FORMS OF ACUTE ISCHEMIC HEART DISEASE Status: Acute (5) Rhabdomyolysis Code(s): M62.82 - RHABDOMYOLYSIS Status: Acute (6) CAD (coronary artery disease) Code(s): I25.10 - ATHSCL HEART DISEASE OF [place] CORONARY ARTERY W/O ANG PCTRS Status: Chronic Qualifiers: (7) Cardiomyopathy Code(s): I42.9 - CARDIOMYOPATHY, UNSPECIFIED Status: Chronic Qualifiers: (8) Compensated respiratory acidosis Code(s): E87.2 - ACIDOSIS Status: Chronic (9) DM2 (diabetes mellitus, type 2) Status: Chronic Qualifiers: (10) Dyslipidemia Code(s): E78.5 - HYPERLIPIDEMIA, UNSPECIFIED Status: Chronic (11) HTN (hypertension) Code(s): I10 - ESSENTIAL (PRIMARY) HYPERTENSION Status: Chronic Qualifiers: (12) Morbid obesity with BMI of 50.0-59.9, adult Code(s): E66.01 - MORBID (SEVERE) OBESITY DUE TO EXCESS CALORIES; Z68.43 - BODY MASS INDEX (BMI) 50-59.9 , ADULT Status: Chronic (13) Obesity hypoventilation syndrome Code(s): E66.2 - MORBID (SEVERE) OBESITY WITH ALVEOLAR HYPOVENTILATION Status : Chronic (14) Blindness Code(s): H54.7 - UNSPECIFIED VISUAL LOSS Status: Chronic - Plan cont current plan of care, social work associate * win nue iv lasix while in hospital * medically stable * discharge planning in progress * medication reviewed as below * symptomatic treatment. Review of Systems - Review of Systems Constitutional: negative: fever, chills, sweats, weakness, malaise, other Respiratory: negative: Cough, Dry, Shortness of Breath, Hemoptysis, SOB with Excertion, Pleuritic Pain, Sputum, Wheezing Cardiovascular: negative: chest pain, palpitations, orthopnea, paroxysmal nocturnal dyspnea, edema, light headedness, other Gastrointestinal: negative: Nausea, Vomiting, Abdominal Pain, Diarrhea, Constipation, Melena, Hematochezia, Other Genitourinary: negative: Dysuria, Frequency, Incontinence, Hematuria, Retention , Other Musculoskeletal: negative: Neck Pain, Shoulder Pain, Arm Pain, Back Pain, Hand Pain, Leg Pain, Foot Pain, Other Skin: negative: Rash, Lesions, Heriberto, Bruising, Other - Medications/Allergies Allergies/Adverse Reactions: Allergies Allergy/AdvReac Type Severity Reaction Status Date / Time Sulfa (Sulfonamide Allergy Verified 02/05/17 15:01 Antibiotics) Medications: Current Medications Acetaminophen (Tylenol) 650 mg PO Q4H PRN PRN Reason: Headache/Fever or Pain Last Admin: 05/24/17 08:36 Dose: 650 mg Hydrocodone Bitart/Acetaminophen ([place] 10/325) 1 tab PO Q4H PRN PRN Reason: Moderate Pain (4-6) Last Admin: 05/24/17 09:29 Dose: 1 tab Al Hydroxide/Mg Hydroxide (Maalox) 15 ml PO Q4H PRN PRN Reason: Heartburn or Indigestion Albuterol/Ipratropium (Duoneb) 3 ml NEB [id number] [facility] Last Admin: 05/24/17 09:41 Dose: 3 ml Albuterol/Ipratropium (Duoneb) 3 ml NEB [id number] PRN PRN Reason: SOB &/or Wheezing Alfuzosin HCl (Uroxatral) 10 mg PO HS [facility] Last Admin: 05/23/17 21:17 Dose: 10 mg Artificial Tears (Tears Renewed 15ml Bottle) 0 drop EA EYE PRN PRN PRN Reason: Dry Eyes Aspirin (Ecotrin) 81 mg PO DAILY [facility] Last Admin: 05/24/17 08:31 Dose: 81 mg Benzonatate (Tessalon) 100 mg PO Q4H PRN PRN Reason: Cough Bisacodyl (Dulcolax) 10 mg [place] Q24H PRN PRN Reason: Constipation Budesonide (Pulmicort Neb Solution) 0.5 mg INH BID-RT [facility] Last Admin: 05/24/17 07:31 Dose: 0.5 mg Buspirone HCl (Buspar) 5 mg PO TID [facility] Last Admin: 05/24/17 08:32 Dose: 5 mg Calcium Carbonate (Tums) 1,000 mg PO Q4H PRN PRN Reason: Heartburn or Indigestion Carvedilol (Coreg) 3.125 mg PO BID [facility] Last Admin: 05/24/17 08:32 Dose: 3.125 mg Dextrose/Water (Dextrose 50%) 25 gm SLOW IVP PRN PRN PRN Reason: Hypoglycemia Docusate Sodium (Colace) 100 mg PO BID [facility] Last Admin: 05/24/17 08:31 Dose: 100 mg Famotidine (Pepcid) 20 mg PO BID [facility] Last Admin: 05/24/17 08:32 Dose: 20 mg Fluticasone Propionate (Flonase Nasal [place]) 0 gm NASAL DAILY [facility] Last Admin: 05/24/17 08:42 Dose: 2 spr Furosemide (Lasix) 40 mg SLOW IVP 0900,1600 [facility] Last Admin: 05/24/17 08:32 Dose: 40 mg Gabapentin (Neurontin) 300 mg PO TID [facility] Last Admin: 05/24/17 08:32 Dose: 300 mg Glucagon (Glucagon) 1 mg IM PRN PRN PRN Reason: Hypoglycemia Guaifenesin (Robitussin Sf) 200 mg PO Q4H PRN PRN Reason: Cough Guaifenesin (Mucinex) 600 mg PO TID [facility] Last Admin: 05/24/17 08:32 Dose: 600 mg Hydralazine HCl (Apresoline) 10 mg SLOW IVP Q4H PRN PRN Reason: Systolic BP > 180 Last Admin: 05/18/17 17:01 Dose: 10 mg Dextrose/Water (D5w) 1,000 mls @ 0 mls/hr IV .Q0M PRN; As Directed PRN Reason: Hypoglycemia Insulin Detemir 55 units/ (Miscellaneous Medication) 0.55 mls @ 0 mls/hr SC HS [facility] Last Admin: 05/23/17 22:00 Dose: 0.55 mls Insulin Detemir 55 units/ (Miscellaneous Medication) 0.55 mls @ 0 mls/[facility] Last Admin: 05/24/17 09:53 Dose: 0.55 mls Insulin Human Lispro (Humalog) 0 units SC .AGGRESSIVE SLIDING PRN PRN Reason: Aggressive Correctional Scale Last Admin: 05/24/17 07:17 Dose: 9 unit Insulin Human Regular (Humulin R) 0 units SC .BEDTIME SLIDING SC PRN PRN Reason: Bedtime Correctional Scale Last Admin: 05/22/17 20:34 Dose: 5 unit Isosorbide Mononitrate (Imdur) 60 mg PO DAILY [facility] Last Admin: 05/24/17 08:31 Dose: 60 mg Loratadine (Claritin) 10 mg PO DAILYPRN PRN PRN Reason: Sinus Symptoms Magnesium Hydroxide (Milk Of Magnesium) 30 ml PO DAILYPRN PRN PRN Reason: Constipation Menthol/Methyl Salicylate (Arthritis Hot) 0 gm TOP PRN PRN PRN Reason: MUSCLE SORENESS Last Admin: 05/23/17 05:10 Dose: 1 applic Mineral Oil/White Petrolatum (Eucerin Cream) 0 gm TOP BIDPRN PRN PRN Reason: Dry Skin Nitroglycerin (Nitrostat) 0.4 mg PO Q5MIN PRN PRN Reason: Chest Pain Ondansetron HCl (Zofran Odt) 4 mg PO Q6H PRN PRN Reason: Nausea/Vomiting Ondansetron HCl (Zofran) 4 mg IVP Q6H PRN PRN Reason: Nausea/Vomiting Phenol (Chloraseptic [place] 180 Ml Bot) 0 ml PO PRN PRN PRN Reason: Sore Throat Saccharomyces Boulardii (Florastor) 250 mg PO DAILY [facility] Last Admin: 05/24/17 08:31 Dose: 250 mg Senna (Senokot) 2 tab PO HSPRN PRN PRN Reason: Constipation Sodium Chloride ([place] Nasal [place] 0.65%) 0 ml EA NARE QIDPRN PRN PRN Reason: Nasal Congestion
[2017-05-24] MEDS: Alfuzosin 10 MG TABDR...ER PO SCH (19:47)
[2017-05-24] MEDS: Insulin Regular 300 UNITS/3 ML VIAL SC PRN (19:48)
[2017-05-25] MEDS: HYDROcodone/Acetaminophen 10/325 mg Tablet PO PRN ×4 (03:13→20:00)
[2017-05-25] MEDS: Budesonide 0.5 MG/2 ML NEB INH SCH ×2 (07:52→19:38)
[2017-05-25] MEDS: Furosemide 40 MG/4 ML VIAL SLOW IVP SCH ×2 (09:08→16:30)
[2017-05-25] MEDS: Fluticasone Propionate Nasal Spray 16 gm Bottle NASAL SCH (09:08)
[2017-05-25] MEDS: busPIRone HCl 5 MG TAB PO SCH ×3 (09:09→19:59)
[2017-05-25] MEDS: Gabapentin 300 MG CAP PO SCH ×3 (09:09→19:59)
[2017-05-25] MEDS: guaiFENesin ER 600 MG TAB PO SCH ×3 (09:09→19:59)
[2017-05-25] MEDS: Famotidine 20 MG TAB PO SCH ×2 (09:09→19:59)
[2017-05-25] MEDS: Saccharomyces boulardii 250 MG CAP PO SCH (09:09)
[2017-05-25] MEDS: Carvedilol 3.125 MG TAB PO SCH ×2 (09:09→19:59)
[2017-05-25] MEDS: Docusate 100 MG CAP PO SCH ×2 (09:09→19:59)
[2017-05-25] MEDS: Aspirin 81 mg Enteric Coated Tablet PO SCH (09:09)
[2017-05-25] MEDS: Insulin Detemir 100 UNITS/ML 55 UNITS in Pre-Filled Syringe 1 EACH SC SCH ×2 (11:43→20:00)
[2017-05-25] MEDS: HumaLOG 300 UNITS/3 ML VIAL SC PRN ×2 (11:43→18:26)
[2017-05-25] MEDS: Alfuzosin 10 MG TABDR...ER PO SCH (19:59)
[2017-05-25] MEDS: Insulin Regular 300 UNITS/3 ML VIAL SC PRN (20:04)
[2017-05-26] MEDS: HYDROcodone/Acetaminophen 10/325 mg Tablet PO PRN ×4 (00:03→13:07)
[2017-05-26] MEDS: HumaLOG 300 UNITS/3 ML VIAL SC PRN ×2 (04:24→12:07)
[2017-05-26] MEDS: Budesonide 0.5 MG/2 ML NEB INH SCH (07:18)
[2017-05-26 09:02] VITALS: BP 179/76; TEMP 98.9
[2017-05-26] MEDS: Gabapentin 300 MG CAP PO SCH (09:04)
[2017-05-26] MEDS: Saccharomyces boulardii 250 MG CAP PO SCH (09:04)
[2017-05-26] MEDS: guaiFENesin ER 600 MG TAB PO SCH (09:04)
[2017-05-26] MEDS: Docusate 100 MG CAP PO SCH (09:04)
[2017-05-26] MEDS: Aspirin 81 mg Enteric Coated Tablet PO SCH (09:04)
[2017-05-26] MEDS: Carvedilol 3.125 MG TAB PO SCH (09:04)
[2017-05-26] MEDS: busPIRone HCl 5 MG TAB PO SCH (09:04)
[2017-05-26] MEDS: Famotidine 20 MG TAB PO SCH (09:04)
[2017-05-26] MEDS: Furosemide 40 MG/4 ML VIAL SLOW IVP SCH (09:05)
[2017-05-26] MEDS: Fluticasone Propionate Nasal Spray 16 gm Bottle NASAL SCH (09:05)
[2017-05-26] MEDS: Insulin Detemir 100 UNITS/ML 55 UNITS in Pre-Filled Syringe 1 EACH SC SCH (09:05)
--- NOTE | 2017-05-26 10:26 | PDOC.PN ---
- Subjective Encounter Start Date: 05/26/17 Encounter Start Time: 09:40 Patient seen and examined. No new complaints. No overnight events - Objective Resuscitation Status: Resuscitation Status DNR:Do Not Resuscitate MAR Reviewed: Yes Vital Signs & Weight: Vital Signs (12 hours) Temp Pulse Resp BP Pulse Ox 05/26/17 08:00 98.9 F 79 20 179/76 H 95 05/26/17 07:18 73 20 92 L 05/26/17 02:30 79 18 94 L 05/25/17 22:26 79 18 95 Weight Admit Weight 349 lb Weight 352 lb I&O: 05/25/17 05/26/17 05/27/17 06:59 06:59 06:59 Intake Total 1820 1970 Output Total 1622049 Balance 195 -80 Result Diagrams: 05/23/17 11:44 05/23/17 11:44 Additional Labs: Accuchecks 05/26/17 05/25/17 05/25/17 04:13 20:09 15:51 POC Glucose 242 H 292 H 286 H 05/25/17 10:59 POC Glucose 316 H Phys Exam - Physical Examination Constitutional: NAD HEENT: PERRLA, moist MMs, sclera anicteric Neck: no JVD, supple Respiratory: no wheezing, no rales, no rhonchi Cardiovascular: RRR, no significant murmur, no rub Gastrointestinal: soft, non-tender, no distention, positive bowel sounds Musculoskeletal: pulses present, edema present Neurological: non-focal, normal sensation Lymphatic: no nodes Psychiatric: normal affect, A&O x 3 Skin: no rash, normal turgor Dx/Plan (1) Acute kidney injury Code(s): N17.9 - ACUTE KIDNEY FAILURE, UNSPECIFIED Status: Resolved (2) Acute on chronic respiratory failure with hypoxia and hypercapnia Code(s): J96.21 - ACUTE AND CHRONIC RESPIRATORY FAILURE WITH HYPOXIA; J96.22 - ACUTE AND CHRONIC RESPIRATORY FAILURE WITH HYPERCAPNIA Status: Acute (3) COPD exacerbation Code(s): J44.1 - CHRONIC OBSTRUCTIVE PULMONARY DISEASE W (ACUTE) EXACERBATION Status: Acute (4) Demand ischemia of myocardium Code(s): I24.8 - OTHER FORMS OF ACUTE ISCHEMIC HEART DISEASE Status: Acute (5) Rhabdomyolysis Code(s): M62.82 - RHABDOMYOLYSIS Status: Acute (6) CAD (coronary artery disease) Code(s): I25.10 - ATHSCL HEART DISEASE OF [place] CORONARY ARTERY W/O ANG PCTRS Status: Chronic Qualifiers: (7) Cardiomyopathy Code(s): I42.9 - CARDIOMYOPATHY, UNSPECIFIED Status: Chronic Qualifiers: (8) Compensated respiratory acidosis Code(s): E87.2 - ACIDOSIS Status: Chronic (9) DM2 (diabetes mellitus, type 2) Status: Chronic Qualifiers: (10) Dyslipidemia Code(s): E78.5 - HYPERLIPIDEMIA, UNSPECIFIED Status: Chronic (11) HTN (hypertension) Code(s): I10 - ESSENTIAL (PRIMARY) HYPERTENSION Status: Chronic Qualifiers: (12) Morbid obesity with BMI of 50.0-59.9, adult Code(s): E66.01 - MORBID (SEVERE) OBESITY DUE TO EXCESS CALORIES; Z68.43 - BODY MASS INDEX (BMI) 50-59.9 , ADULT Status: Chronic (13) Obesity hypoventilation syndrome Code(s): E66.2 - MORBID (SEVERE) OBESITY WITH ALVEOLAR HYPOVENTILATION Status : Chronic (14) Blindness Code(s): H54.7 - UNSPECIFIED VISUAL LOSS Status: Chronic - Plan cont current plan of care * medication reviewed as below * symptomatic treatment * stable for discharge * see discharge kallie. Review of Systems - Review of Systems ENT: negative: Ear Pain, Ear Discharge, Nose Pain, Nose Discharge, Nose Congestion, Mouth Pain, Mouth Swelling, Throat Pain, Throat Swelling, Other Respiratory: negative: Cough, Dry, Shortness of Breath, Hemoptysis, SOB with Excertion, Pleuritic Pain, Sputum, Wheezing Cardiovascular: negative: chest pain, palpitations, orthopnea, paroxysmal nocturnal dyspnea, edema, light headedness, other Gastrointestinal: negative: Nausea, Vomiting, Abdominal Pain, Diarrhea, Constipation, Melena, Hematochezia, Other Genitourinary: negative: Dysuria, Frequency, Incontinence, Hematuria, Retention , Other Musculoskeletal: negative: Neck Pain, Shoulder Pain, Arm Pain, Back Pain, Hand Pain, Leg Pain, Foot Pain, Other - Medications/Allergies Allergies/Adverse Reactions: Allergies Allergy/AdvReac Type Severity Reaction Status Date / Time Sulfa (Sulfonamide Allergy Verified 02/05/17 15:01 Antibiotics) Medications: Current Medications Acetaminophen (Tylenol) 650 mg PO Q4H PRN PRN Reason: Headache/Fever or Pain Last Admin: 05/24/17 08:36 Dose: 650 mg Hydrocodone Bitart/Acetaminophen ([place] 10/325) 1 tab PO Q4H PRN PRN Reason: Moderate Pain (4-6) Last Admin: 05/26/17 09:04 Dose: 1 tab Al Hydroxide/Mg Hydroxide (Maalox) 15 ml PO Q4H PRN PRN Reason: Heartburn or Indigestion Albuterol/Ipratropium (Duoneb) 3 ml NEB [id number] [facility] Last Admin: 05/26/17 07:20 Dose: 3 ml Albuterol/Ipratropium (Duoneb) 3 ml NEB [id number] PRN PRN Reason: SOB &/or Wheezing Alfuzosin HCl (Uroxatral) 10 mg PO HS [facility] Last Admin: 05/25/17 19:59 Dose: 10 mg Artificial Tears (Tears Renewed 15ml Bottle) 0 drop EA EYE PRN PRN PRN Reason: Dry Eyes Aspirin (Ecotrin) 81 mg PO DAILY [facility] Last Admin: 05/26/17 09:04 Dose: 81 mg Benzonatate (Tessalon) 100 mg PO Q4H PRN PRN Reason: Cough Bisacodyl (Dulcolax) 10 mg TN Q24H PRN PRN Reason: Constipation Budesonide (Pulmicort Neb Solution) 0.5 mg INH BID-RT [facility] Last Admin: 05/26/17 07:18 Dose: 0.5 mg Buspirone HCl (Buspar) 5 mg PO TID [facility] Last Admin: 05/26/17 09:04 Dose: 5 mg Calcium Carbonate (Tums) 1,000 mg PO Q4H PRN PRN Reason: Heartburn or Indigestion Carvedilol (Coreg) 3.125 mg PO BID [facility] Last Admin: 05/26/17 09:04 Dose: 3.125 mg Dextrose/Water (Dextrose 50%) 25 gm SLOW IVP PRN PRN PRN Reason: Hypoglycemia Docusate Sodium (Colace) 100 mg PO BID [facility] Last Admin: 05/26/17 09:04 Dose: 100 mg Famotidine (Pepcid) 20 mg PO BID [facility] Last Admin: 05/26/17 09:04 Dose: 20 mg Fluticasone Propionate (Flonase Nasal [place]) 0 gm NASAL DAILY [facility] Last Admin: 05/26/17 09:05 Dose: 2 spr Furosemide (Lasix) 40 mg SLOW IVP 0900,1600 [facility] Last Admin: 05/26/17 09:05 Dose: 40 mg Gabapentin (Neurontin) 300 mg PO TID [facility] Last Admin: 05/26/17 09:04 Dose: 300 mg Glucagon (Glucagon) 1 mg IM PRN PRN PRN Reason: Hypoglycemia Guaifenesin (Robitussin Sf) 200 mg PO Q4H PRN PRN Reason: Cough Guaifenesin (Mucinex) 600 mg PO TID [facility] Last Admin: 05/26/17 09:04 Dose: 600 mg Hydralazine HCl (Apresoline) 10 mg SLOW IVP Q4H PRN PRN Reason: Systolic BP > 180 Last Admin: 05/18/17 17:01 Dose: 10 mg Dextrose/Water (D5w) 1,000 mls @ 0 mls/hr IV .Q0M PRN; As Directed PRN Reason: Hypoglycemia Insulin Detemir 55 units/ (Miscellaneous Medication) 0.55 mls @ 0 mls/hr SC [facility] Last Admin: 05/25/17 20:00 Dose: 0.55 mls Insulin Detemir 55 units/ (Miscellaneous Medication) 0.55 mls @ 0 mls/hr SC [facility] Last Admin: 05/26/17 09:05 Dose: 0.55 mls Insulin Human Lispro (Humalog) 0 units SC .AGGRESSIVE SLIDING PRN PRN Reason: Aggressive Correctional Scale Last Admin: 05/26/17 04:24 Dose: 6 unit Insulin Human Regular (Humulin R) 0 units SC .BEDTIME SLIDING SC PRN PRN Reason: Bedtime Correctional Scale Last Admin: 05/25/17 20:04 Dose: 3 unit Isosorbide Mononitrate (Imdur) 60 mg PO DAILY [facility] Last Admin: 05/26/17 09:04 Dose: 60 mg Loratadine (Claritin) 10 mg PO DAILYPRN PRN PRN Reason: Sinus Symptoms Magnesium Hydroxide (Milk Of Magnesium) 30 ml PO DAILYPRN PRN PRN Reason: Constipation Menthol/Methyl Salicylate (Arthritis Hot) 0 gm TOP PRN PRN PRN Reason: MUSCLE SORENESS Last Admin: 05/23/17 05:10 Dose: 1 applic Mineral Oil/White Petrolatum (Eucerin Cream) 0 gm TOP BIDPRN PRN PRN Reason: Dry Skin Nitroglycerin (Nitrostat) 0.4 mg PO Q5MIN PRN PRN Reason: Chest Pain Ondansetron HCl (Zofran Odt) 4 mg PO Q6H PRN PRN Reason: Nausea/Vomiting Ondansetron HCl (Zofran) 4 mg IVP Q6H PRN PRN Reason: Nausea/Vomiting Phenol (Chloraseptic [place] 180 Ml Bot) 0 ml PO PRN PRN PRN Reason: Sore Throat Saccharomyces Boulardii (Florastor) 250 mg PO DAILY [facility] Last Admin: 05/26/17 09:04 Dose: 250 mg Senna (Senokot) 2 tab PO HSPRN PRN PRN Reason: Constipation Sodium Chloride ([place] Nasal [place] 0.65%) 0 ml EA NARE QIDPRN PRN PRN Reason: Nasal Congestion
--- NOTE | 2017-05-26 11:27 | ADD-DIS ---
This patient was originally discharged on 05/21/2017. Subsequently, we also put discharge order on , but he did not go up until today. There is no change in my discharge summary dictated or iginally on 05/21/2017. Please see that discharge summary for more detail. We have given handwritte n prescription for [facility]. The patient is going to go home today.
== END 2017-05-26 14:19 | disposition home health service (06) | DRG 291 ==
LOC: ERS 11:41 → IMCU/EMU 14:38 → T4-B 05-15 14:58
PROVIDERS: ADMIT Internal Medicine; ATTEND Internal Medicine
DX: I11.0 Hypertensive heart disease with heart failure (principal); J96.21 Acute and chronic respiratory failure with hypoxia; N17.9 Acute kidney failure, unspecified; E87.2 Acidosis; E11.42 Type 2 diabetes mellitus with diabetic polyneuropathy; Z68.43 Body mass index [BMI] 50.0-59.9, adult; M62.82 Rhabdomyolysis; J96.22 Acute and chronic respiratory failure with hypercapnia; E66.2 Morbid (severe) obesity with alveolar hypoventilation; I24.8 Other forms of acute ischemic heart disease; J44.1 Chronic obstructive pulmonary disease with (acute) exacerbation; I50.33 Acute on chronic diastolic (congestive) heart failure; I42.9 Cardiomyopathy, unspecified; Z99.81 Dependence on supplemental oxygen; Z79.4 Long term (current) use of insulin; E78.5 Hyperlipidemia, unspecified; H54.8 Legal blindness, as defined in USA; I25.10 Atherosclerotic heart disease of native coronary artery without angina pectoris; I48.0 Paroxysmal atrial fibrillation; K21.9 Gastro-esophageal reflux disease without esophagitis; F41.9 Anxiety disorder, unspecified; F32.9 Major depressive disorder, single episode, unspecified; Z95.1 Presence of aortocoronary bypass graft; Z88.2 Allergy status to sulfonamides; F17.210 Nicotine dependence, cigarettes, uncomplicated; Z99.3 Dependence on wheelchair; Z79.82 Long term (current) use of aspirin; Z79.891 Long term (current) use of opiate analgesic; I44.0 Atrioventricular block, first degree; B96.89 Other specified bacterial agents as the cause of diseases classified elsewhere; Z66 Do not resuscitate
CPT/HCPCS: 36415; 36416; 71010; 80053; 80061; 81003; 81015; 82550; 82553; 82805; 83735; 83880; 83930; 84100; 84443; 84484; 85025; 87040; 87086; 87804; 90471; 90682; 93005; 93306; 94640; 94660; 96360; A4216; G0008; G8978-GP-CM; G8978-GP-CN; G8979-GP-CK; G8987-GO-CM; G8988-GO-CJ; J0360; J0696; J1815; J1940; J7620; J7626; Q2036